=== PATIENT | male | born 1940 | race Caucasian/White ===

== ENCOUNTER → 2017-02-03 | Outpatient (CLI) | payer MEDICARE ==
--- NOTE | 2017-02-03 12:35 | CT ---
EXAMINATION TYPE: CT shoulder RT wo con DATE OF EXAM: 02/03/2017 COMPARISON: NONE HISTORY: Rt shoulder pain CT DLP: 441 mGycm Automated exposure control for dose reduction was used. Axial, reconstruction coronal and sagittal, a nd 3-D reconstruction imaging performed. FINDINGS: Incidental note is made of atherosclerotic change of the visualized carotid artery. Facet arthropathy and degenerative change of the visualized cervical spine noted. There are cystic changes involving the distal clavicle which may be postsurgical and there is evidenc e suggesting previous rotator cuff surgery. Complete loss of joint space of the glenohumeral joint sp ur formation noted. Likely is complete absence of the articular cartilage. No acute fracture. Scapula intact. IMPRESSION: COMPLETE LOSS OF JOINT SPACE OF THE GLENOHUMERAL JOINT COMPATIBLE SEVERE ARTHROPATHY. THERE IS SOME R EMODELING OF BOTH THE GLENOID AND HUMERAL HEAD. 2. SUSPECTED POSTSURGICAL CHANGE INVOLVING THE REGION OF THE ROTATOR CUFF. CORRELATE CLINICALLY. 3. SMALL AMOUNT OF FLUID ALONG THE SUBDELTOID BURSA. ALTHOUGH CAT SCAN IS NOT VERY SPECIFIC OR SENSIT BRENNAN FOR ROTATOR CUFF RE-TEAR PRESENCE OF FLUID WITHIN THE SUBDELTOID BURSA COULD BE AN INDIRECT SIGN AND SHOULD BE CORRELATED CLINICALLY. 4. ARTHROPATHY OF THE RESIDUAL AC JOINT WITH CYSTIC CHANGES INVOLVING THE DISTAL CLAVICLE.
== END | disposition home or self-care (01) ==
LOC: RADCTMAIN 11:38
PROVIDERS: ATTEND Orthopaedic Surgery Sports Medicine
DX: M12.811 Other specific arthropathies, not elsewhere classified, right shoulder (principal); M25.811 Other specified joint disorders, right shoulder

== ENCOUNTER → 2017-02-03 | Outpatient (CLI) | payer MEDICARE ==
[2017-02-03 13:49] LABS: Appearance,Urine Clear (Clear); Bilirubin,Urine Negative (Negative); Glucose,Urine (UA) 1+ (Negative); Ketones,Urine Negative (Negative); Leukocyte Esterase,Urine Negative (Negative); Nitrite,Urine Negative (Negative); Protein,Urine Negative (Negative); Specific Gravity,Urine 1.006 (1.001-1.035); UA Billing (MACRO vs. MICRO) CHEM; Urobilinogen,Urine <2.0 mg/dL (<2.0)
[2017-02-03 13:59] LABS: Basophils % (A) 0 %; CH 32.1; CHCM 34.3; Eosinophils # (A) 0.1 k/uL (0-0.7); Eosinophils % (A) 2 %; HCT 41.6 % (39.0-53.0); HDW 2.52; HGB 13.6 gm/dL (13.0-17.5); Luc # (Auto) 0.28; Luc % (Auto) 4; Lymphocytes # (A) 1.8 k/uL (1.0-4.8); Lymphocytes % (A) 26 %; MCH 30.7 pg (25.0-35.0); MCHC 32.7 g/dL (31.0-37.0); MCV 93.9 fL (80.0-100.0); Mean Platelet Volume 6.7; Monocytes # (A) 0.6 k/uL (0-1.0); Monocytes % (A) 8 %; Neutrophils # (A) 4.2 k/uL (1.3-7.7); Neutrophils % (A) 60 %; RBC 4.43 m/uL (4.30-5.90); RDW 12.2 % (11.5-15.5); WBC (Perox) 6.94
[2017-02-03 14:08] LABS: INR 1.1 (<1.2); Prothrombin Time 10.7 sec (9.0-12.0)
[2017-02-03 14:09] LABS: Partial Thromboplastin Time 26.4 sec (22.0-30.0)
[2017-02-03 14:14] LABS: ALT 41 U/L (21-72); AST 23 U/L (17-59); Alkaline Phosphatase 56 U/L (38-126); Anion Gap 11 mmol/L; Blood Urea Nitrogen 13 mg/dL (9-20); Calcium 9.9 mg/dL (8.4-10.2); Carbon Dioxide 28 mmol/L (22-30); Chloride 93 mmol/L (98-107); Glucose 160 mg/dL (74-99); Non-African American GFR(MDRD) >60 (>60 ml/min/1.73 sqM); Potassium 4.5 mmol/L (3.5-5.1); Sodium 132 mmol/L (137-145); Total Bilirubin 0.4 mg/dL (0.2-1.3); Total Protein 7.4 g/dL (6.3-8.2)
== END | disposition home or self-care (01) ==
LOC: LABPAT 12:26
PROVIDERS: ATTEND Orthopaedic Surgery Sports Medicine
DX: Z01.818 Encounter for other preprocedural examination (principal)
CPT/HCPCS: 36415; 80053; 81003; 85025; 85610; 85730; 87070; 87086

== ENCOUNTER → 2017-07-19 | Outpatient (CLI) | payer MEDICARE ==
[2017-07-19 12:13] LABS: Anion Gap 11 mmol/L; Blood Urea Nitrogen 12 mg/dL (9-20); Calcium 9.5 mg/dL (8.4-10.2); Carbon Dioxide 29 mmol/L (22-30); Chloride 95 mmol/L (98-107); Glucose 232 mg/dL (74-99); Sodium 135 mmol/L (137-145)
== END | disposition home or self-care (01) ==
LOC: LABWHC1 11:22
PROVIDERS: ATTEND Internal Medicine Cardiovascular Disease
DX: I10 Essential (primary) hypertension (principal); E78.2 Mixed hyperlipidemia
CPT/HCPCS: 36415; 80048

== ENCOUNTER → 2018-04-04 | Outpatient (CLI) | payer MEDICARE ==
--- NOTE | 2018-04-05 06:06 | BD ---
EXAMINATION TYPE: Axial Bone Density DATE OF EXAM: 04/04/2018 COMPARISON: 07/23/2005 DEXA bone scan report. CLINICAL HISTORY: Other disorders of bone density per order. Height: 65 IN Weight: 181 LBS RISK FACTORS HISTORY OF: Active: YES Lost more than 2 inches in height since high school: YES 3 " MEDICATIONS: Thyroid Medications: YES Which medication: Levothyroxine How Lon YEARS Additional Medications: MULTI VIT, LEVOTHYROXINE EXAM MEASUREMENTS: Bone mineral densitometry was performed using the [facility]. Bone mineral density as measured about the Lumbar spine is: ----- L1-L4(G/cm2): 1.176 T Score Values are as follows: ----- L2: -0.8 ----- L3: -0.4 ----- L4: 1.7 ----- L1-L4: -1.1 Bone mineral density has: Increased 15.1% since study of: 07/23/2005 Bone mineral density about the R hip (g/cm2): 0.934 Bone mineral density about the L hip (g/cm2): 0.967 T Score values are as follows: -----R Neck: -0.7 -----L Neck: -0.5 -----R Total: -0.3 -----L Total: -0.4 Bone mineral density has: Decreased -5.7% since study of: 07/23/2005 IMPRESSION: Normal (Values between +1 and -1 indicate normal bone mass). Consider repeating this study in 5 year s or sooner if there is some new clinical indication. NOTE: T-SCORE=SD OF THE YOUNG ADULT MEAN.
== END | disposition home or self-care (01) ==
LOC: RADBDWWP 16:12
PROVIDERS: ATTEND Family Medicine
DX: M85.80 Other specified disorders of bone density and structure, unspecified site (principal)
CPT/HCPCS: 77080

== ENCOUNTER → 2018-10-20 | Outpatient (CLI) | payer MEDICARE ==
[2018-10-20 16:48] LABS: HCT 39.3 % (39.0-53.0); HGB 13.1 gm/dL (13.0-17.5); MCH 30.8 pg (25.0-35.0); MCHC 33.3 g/dL (31.0-37.0); MCV 92.3 fL (80.0-100.0); Mean Platelet Volume 7.1; Platelet Count 197 k/uL (150-450); RBC 4.26 m/uL (4.30-5.90); RDW 12.6 % (11.5-15.5); WBC 7.7 k/uL (3.8-10.6)
[2018-10-20 16:55] LABS: African American GFR (CKD) >90 (>60 ml/min/1.73 sqM); Anion Gap 10 mmol/L; Blood Urea Nitrogen 16 mg/dL (9-20); Carbon Dioxide 30 mmol/L (22-30); Chloride 99 mmol/L (98-107); Non-African American GFR(CKD) 90 (>60 ml/min/1.73 sqM); Potassium 4.2 mmol/L (3.5-5.1); Sodium 139 mmol/L (137-145)
== END | disposition home or self-care (01) ==
LOC: LABPAT 16:14
PROVIDERS: ATTEND Internal Medicine Interventional Cardiology
DX: Z01.812 Encounter for preprocedural laboratory examination (principal); R07.9 Chest pain, unspecified; R94.39 Abnormal result of other cardiovascular function study
CPT/HCPCS: 80051; 82565; 84520; 85027

== ENCOUNTER 2018-10-28 05:48 | Day surgery (SDC) | payer MEDICARE ==
[2018-10-28] MEDS ORDERED: ASPIRIN 325 MG TAB PO ONE (06:00)
[2018-10-28] MEDS ORDERED: SODIUM CHLORIDE 0.9% 1,000 ML in EMPTY BAG 1 BAG IV ONE (06:00)
[2018-10-28 06:40] LABS: Glucose,Whole Blood 155 mg/dL (75-99)
[2018-10-28] MEDS: ALPRAZolam 0.25 MG TAB PO PRN ×2 (06:42→21:15)
[2018-10-28] MEDS ORDERED: LIDOCAINE 1% INJ 10MG/ML (20 ML MDV) ONE (07:18)
[2018-10-28] MEDS ORDERED: VERAPAMIL 2.5 MG/ML 2 ML AMP ONE (07:18)
[2018-10-28] MEDS ORDERED: HEPARIN SODIUM 1,000 UN/ML (10ML VL) ONE (07:18)
[2018-10-28] MEDS ORDERED: fentaNYL (PF) 50 MCG/ML 2 ML AMP ONE (07:28)
[2018-10-28] MEDS ORDERED: fentaNYL (PF) 50 MCG/ML 2 ML AMP IVP ONE (07:45)
[2018-10-28] MEDS ORDERED: LIDOCAINE 1% INJ 10MG/ML (20 ML MDV) SQ ONE (07:48)
[2018-10-28] MEDS ORDERED: MIDAZOLAM (PF) 2 MG/2 ML VIAL IVP ONE (07:49)
[2018-10-28] MEDS ORDERED: VERAPAMIL SYRINGE (5 MG/10 ML) INTRAARTER ONE (07:52)
[2018-10-28] MEDS ORDERED: CLOPIDOGREL 75 MG TAB ONE (08:05)
[2018-10-28] MEDS ORDERED: BIVALIRUDIN BOLUS 250 MG/50 ML IV ONE (08:08)
[2018-10-28] MEDS ORDERED: BIVALIRUDIN 250 MG in SODIUM CHLORIDE 0.9% 50 ML IV ONE (08:09)
[2018-10-28] MEDS ORDERED: CLOPIDOGREL 75 MG TAB PO ONE (08:10)
[2018-10-28] MEDS ORDERED: IOPAMIDOL-370 125ML BTL INJ ONE (08:22)
[2018-10-28] MEDS ORDERED: IOPAMIDOL-370 100ML BTL INJ ONE (09:03)
[2018-10-28] MEDS ORDERED: RX INFO: IV CONTRAST WAS GIVEN 1 EACH MISC MISCELLANE PRN (09:09)
[2018-10-28] MEDS ORDERED: ZOLPIDEM 5 MG TAB PO PRN (09:09)
[2018-10-28] MEDS ORDERED: MAG HYDROX/AL HYDROX/SIMETH 30 ML CUP PO PRN (09:09)
[2018-10-28] MEDS ORDERED: NITROGLYCERIN SL TABS 0.4 MG TAB SUBLINGUAL PRN (09:09)
[2018-10-28] MEDS ORDERED: ATROPINE SULFATE 0.1 MG/ML 10ML SYRINGE IV PRN (09:09)
[2018-10-28] MEDS ORDERED: SODIUM CHLORIDE 0.9% 1,000 ML IV SCH (09:15)
--- NOTE | 2018-10-28 09:40 | CC ---
CARDIAC CATHETERIZATION REPORT Mr. Bhatia is a 78-year-old male with a known history of hypertension, hyperlipidemia, diabetes mellitus, who has been complaining of exertional chest discomfort and had abnormal stress echocardiogram with inferolateral wall ischemia. In view of that, recommendation made regarding cardiac catheterization. The procedures, risks and complications were discussed with the patient who is in full understanding and agreement. PROCEDURE: Patient was brought to the labor relations analyst in a fasting semi-sedated state after receiving fentanyl and Benadryl and achieving moderate conscious sedated state. Using Xylocaine anesthesia and Seldinger technique, a 6-Mexican sheath was introduced in the right radial artery. Selective right and left coronary angiography performed using 5-Mexican 3.5 bend right and left Rox catheter, multiple views of the coronary artery including hemiaxial views were obtained. Following that 5-Mexican tight pigtail catheter was introduced in the left ventricle and pressures were calculated. Following that, catheters were removed., images were reviewed. FINDINGS: FLUOROSCOPY: There is severe calcification involving the coronary arteries and more predominantly in the left circumflex. LEFT MAIN: This is a short size vessel, bifurcating into left circumflex, left anterior descending artery. Left main coronary artery has no evidence of high-grade stenosis. LEFT ANTERIOR DESCENDING ARTERY: This is a large-sized vessel, reaching toward the apex with a wraparound apex segment, giving rise to the diagonal branch. The left anterior descending artery has mild plaque in the proximal segment of 20% with no evidence of high-grade stenosis. LEFT CIRCUMFLEX: This is a severely calcified vessel, dominant, giving rise to a large proximal obtuse marginal branch. After the takeoff of the obtuse marginal branch, there is an acute bend. Subsequently, there is the AV groove left circumflex had a 99% stenosis and there is a second obtuse marginal branch has a 99% stenosis with slow antegrade flow. RIGHT CORONARY ARTERY: This is a nondominant vessel, small in caliber at the takeoff of the acute marginal branch. There is an eccentric 60% plaque. The rest of the vessel has no high-grade stenosis. LEFT VENTRICULOGRAM: Ventriculogram is not performed. HEMODYNAMICS: There was no gradient across the aortic valve. The left ventricular end-diastolic pressure was 14 to 16 mmHg. CONCLUSION: 1. 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 2. Moderate disease in mid right coronary artery and mild disease in the LAD. RECOMMENDATION: In view of finding anatomy, I discussed with the patient the option of proceeding with attempted angioplasty and stenting. The procedures, risks and complications were discussed with the patient who is in full understanding and agreement. MMODL / IJN: [id number] /
--- NOTE | 2018-10-28 09:52 | PTCA ---
PERCUTANEOUSTRANS CORORONARY ANGIOGRAPHY ATTEMPTED ANGIOPLASTY AND STENTING Mr. Bhatia is a 78-year-old male with known history of hypertension, hyperlipidemia and diabetes mellitus, who has been complaining of exertional chest discomfort, had an abnormal stress echocardiogram in the inferolateral wall, underwent cardiac catheterization, was found to have subtotally occluded mid left circumflex. In view of that, recommendation was made regarding angioplasty and stenting. The procedure as well as the risks and the complications were discussed with the patient who is in full understanding and agreement. PROCEDURE: A 6-Serbian FL 3.5 guiding catheter into system. After cannulating the left main, a 0.014 Whisper J-wire was advanced and positioned in distal left circumflex. Subsequently attempt to advance a second wire into the second obtuse marginal branch was unsuccessful. Subsequently, a FineCross 45 degree catheter was introduced and a 0.014 whisper J-wire in spite of the back up of the FineCross, there was inability to cross the second obtuse marginal branch. That wire was exchanged to a 0.014 balanced medium weight J-wire, that was unsuccessful as well. At that point, the wires were removed and a 0.014 Whisper J-wire was advanced positioned next to the first wire in the distal left circumflex. Subsequently attempt to advance a 2.5 x 12 mm Trek balloon was unsuccessful. That balloon was removed and one of the wires were removed and a GuideLiner was advanced and with the help of the GuideLiner a 1.5 x 8 mm Trek balloon was advanced and 2 inflations at maximum of 16 atmospheres were done. Following that the balloon was removed and attempt to advance 2.5 x 12 mm Trek was unsuccessful in spite of the GuideLiner because of the severe calcification proximal to the lesion and the acute tortuosity and angulation. The GuideLiner was removed and the 0.014 Whisper J-wire was reintroduced in a jacqueline fashion and attempt to advance the 2.5 x 12 mm Trek balloon was unsuccessful as well. At that point, the guiding catheter, the balloon and the guidewire were removed. The sheath was removed. Hemostasis was obtained with deployment of a TR band. There was no immediate complication. The patient was returned to his room in stable condition. Of note, the patient had mild chest discomfort that resolved at the end procedure. He received Angiomax per protocol as well as oral loading dose of clopidogrel. RESULTS: Unsuccessful recanalization of subtotally occluded distal left circumflex and second obtuse marginal branch because of severe tortuosity, calcification in the lesion and proximal to the lesion. RECOMMENDATION: Those findings and recommendations were discussed with the patient. At this time, I will continue medical therapy and I will obtain the opinion to see if other attempts can be considered at a tertiary care facility. Depending on his progress, further recommendation will be made. Duration of procedure is 67 minutes. MMODL / IJN: [id number] /
[2018-10-28 11:59] LABS: Glucose,Whole Blood 187 mg/dL (75-99)
[2018-10-28 17:18] LABS: Glucose,Whole Blood 114 mg/dL (75-99)
[2018-10-28] MEDS: cloNIDine HCL 0.1 MG TAB PO SCH (19:46)
[2018-10-28] MEDS: ATENOLOL 25 MG TAB PO SCH (19:46)
[2018-10-28] MEDS ORDERED: LISINOPRIL 5 MG TAB PO SCH (21:00)
[2018-10-28] MEDS ORDERED: ATORVASTATIN 40 MG TAB PO SCH (21:00)
[2018-10-28 21:08] LABS: Glucose,Whole Blood 157 mg/dL (75-99)
[2018-10-28] MEDS ORDERED: LISINOPRIL 20 MG TAB PO STA (22:20)
[2018-10-29 04:46] VITALS: RESP 18
[2018-10-29 05:59] LABS: Glucose,Whole Blood 139 mg/dL (75-99)
[2018-10-29] MEDS ORDERED: LEVOTHYROXINE 100 MCG TAB PO SCH (06:30)
[2018-10-29 07:21] LABS: African American GFR (CKD) >90 (>60 ml/min/1.73 sqM); Anion Gap 9 mmol/L; Blood Urea Nitrogen 13 mg/dL (9-20); Calcium 9.1 mg/dL (8.4-10.2); Carbon Dioxide 28 mmol/L (22-30); Chloride 103 mmol/L (98-107); Glucose 141 mg/dL (74-99); Potassium 3.9 mmol/L (3.5-5.1); Sodium 140 mmol/L (137-145)
[2018-10-29] MEDS: cloNIDine HCL 0.1 MG TAB PO SCH (08:20)
[2018-10-29] MEDS: ATENOLOL 25 MG TAB PO SCH (08:20)
[2018-10-29] MEDS ORDERED: HYDROCHLOROTHIAZIDE 25 MG TAB PO SCH (09:00)
[2018-10-29] MEDS ORDERED: amLODIPine 10 MG TAB PO SCH (09:00)
[2018-10-29] MEDS ORDERED: LISINOPRIL 20 MG TAB PO SCH (09:00)
[2018-10-29] MEDS ORDERED: amLODIPine 5 MG TAB PO SCH (09:00)
[2018-10-29] MEDS ORDERED: ISOSORBIDE MONONITRATE ER 60 MG TAB.ER.24H PO SCH (09:00)
[2018-10-29] MEDS ORDERED: ASPIRIN 81 MG PO SCH (09:00)
[2018-10-29] MEDS ORDERED: LOSARTAN 50 MG TAB PO SCH (09:00)
[2018-10-29] MEDS ORDERED: CLOPIDOGREL 75 MG TAB PO SCH (09:00)
[2018-10-29 09:51] VITALS: TEMP 97.4
[2018-10-29 09:52] VITALS: BP 151/70; PULSE 72
--- NOTE | 2018-10-29 10:23 | PN ---
PROGRESS NOTE Mr. Bhatia is a 78-year-old male with known history of hypertension, hyperlipidemia, diabetes mellitus, who presented with symptoms of chest discomfort and had an abnormal stress echocardiogram, underwent cardiac catheterization, was found to have heavily calcified left circumflex with subtotal occluded mid circumflex and 2nd obtuse marginal branch. Attempts to proceed with angioplasty and stenting were unsuccessful because of the severe angulation and calcification. The patient is doing well this morning. He is concerned about his blood pressure. He is denying any chest pain. No dizziness. No palpitation. No nausea. He denies any cough. He continues to be on aspirin once a day, Plavix 75 mg daily, clonidine 0.1 mg twice a day, Norvasc 5 mg daily, atenolol 25 mg twice a day, Lipitor 40 mg daily, isosorbide mononitrate 60 mg daily, losartan 100 mg daily. PHYSICAL EXAMINATION: Blood pressure running in the 160s to 200 with a heart rate in the 70s. HEAD: Normocephalic. Eyes sclerae anicteric. NECK: Good upstroke. No bruit. LUNGS: Clear to auscultation. HEART: Regular rate and rhythm S1, S2. No S3 with systolic murmur. No diastolic murmur. ABDOMEN: Soft, nontender. Positive bowel sounds. No megaly. EXTREMITIES: No edema. Right radial pulse intact. EKG revealed no acute changes. LAB DATA: Lab data revealed BUN and creatinine 13 and 0.7, potassium 3.9. IMPRESSION: 1. 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 2. Hypertension. 3. Hyperlipidemia. 4. Diabetes mellitus. RECOMMENDATION: I will add hydrochlorothiazide to his regimen, increase the dose of his amlodipine to improve his blood pressure control. He will increase his level of activity. I contacted the high risk angioplasty team at [facility] and his images were sent there to be reviewed to see if he is a candidate to proceed with further attempt to angioplasty and stenting. If he is doing well this afternoon, I would expect he should be able to be discharged home and followed as an outpatient. MMODL / IJN: [id number] /
[2018-10-29 11:50] LABS: Glucose,Whole Blood 201 mg/dL (75-99)
[2018-10-29 12:44] VITALS: BMI 26.8
== END 2018-10-29 14:15 | disposition home or self-care (01) ==
LOC: CATHCVL 05:48 → 3SCARD 08:53 → CATHCVL 10-29 14:15
PROVIDERS: ATTEND Internal Medicine Interventional Cardiology
DX: I25.10 Atherosclerotic heart disease of native coronary artery without angina pectoris (principal); I25.84 Coronary atherosclerosis due to calcified coronary lesion; I77.1 Stricture of artery; Z53.8 Procedure and treatment not carried out for other reasons; I10 Essential (primary) hypertension; Z87.891 Personal history of nicotine dependence; E78.2 Mixed hyperlipidemia; E11.9 Type 2 diabetes mellitus without complications; Z79.84 Long term (current) use of oral hypoglycemic drugs; Z79.82 Long term (current) use of aspirin; Z79.890 Hormone replacement therapy; Z79.899 Other long term (current) drug therapy
CPT/HCPCS: 93458; 92920; 85347; 80048; C1769 ×2; C1887 ×3; C1725 ×2; J2001; J3010; J0583; Q9967 ×2; J2250

== ENCOUNTER 2018-12-02 10:23 | Inpatient (IN) | payer MEDICARE ==
[2018-12-02] MEDS ORDERED: DILTIAZEM DRIP BOLUS FROM BAG 1 MG SOLN IV ONE (10:49)
[2018-12-02] MEDS ORDERED: ASPIRIN 81 MG PO STA (10:49)
[2018-12-02] MEDS ORDERED: SODIUM CHLORIDE 0.9% 1,000 ML IV STA (10:49)
[2018-12-02] MEDS ORDERED: HEPARIN SODIUM,PORCINE 5,000 UNIT/ML 1 ML VIAL IV PRN (10:50)
[2018-12-02] MEDS ORDERED: HEPARIN SODIUM,PORCINE 5,000 UNIT/ML 1 ML VIAL IV ONE (10:50)
--- NOTE | 2018-12-02 11:07 | ED ---
General Adult HPI - General Chief complaint: Arrhythmia/Palpitations Stated complaint: chest pain/high pulse Time Seen by Provider: 12/02/18 10:36 Source: patient Mode of arrival: wheelchair Limitations: no limitations - History of Present Illness Initial comments: Dictation was produced using [employer] dictation software. please excuse any grammatical, word or spelling errors. Chief Complaint: 78-year-old male past medical history of coronary artery disease, hypertension presents with tachycardia. History of Present Illness: This 78-year-old male he was seen in his primary care physician's office. Patient states she's been having rapid heart rate since this morning. Patient states he was in his usual state of health yesterday. He was evaluated at his PCPs office and found to have atrial flutter with a heart rate in the 150s. He was sent over immediately to the emergency department. Patient states he has been having palpitations upon waking today. He does complain of some mild chest pressure. She denies any lower extremity symptoms. No history of deep venous thrombosis. Denies any cough or infectious symptoms. Patient has history of coronary artery disease. He had a cardiac cath performed by Dr. Rojas recently. Patient however was not unable to undergo successful stenting. He is referred to [facility] for outpatient cardiac cath The ROS documented in this emergency department record has been reviewed and confirmed by me. Those systems with pertinent positive or negative responses have been documented in the HPI. All other systems are other negative and/or noncontributory. PHYSICAL EXAM: General Impression: Alert and oriented x3, not in acute distress HEENT: Normocephalic atraumatic, extra-ocular movements intact, pupils equal and reactive to light bilaterally, mucous membranes moist. Cardiovascular: Tachycardic Chest: Lungs clear to auscultation bilaterally, no rhonchi, no wheeze, no rales Abdomen: Bowel sounds present, abdomen soft, non-tender, non-distended, no organomegaly Musculoskeletal: Pulses present and equal in all extremities, no peripheral edema Motor: no focal deficits noted Neurological: CN II-XII grossly intact, no focal motor or sensory deficits noted Skin: Intact with no visualized rashes Psych: Normal affect and mood ED course: 78-year-old male presents with tachycardia dysrhythmia. All signs upon arrival shows heart rate 159, worse vital signs within acceptable limits. She started on Cardizem infusion after Cardizem bolus. Patient's medications were reviewed. He is on Plavix. Started on heparin Repeat EKG performed after initiation of Cardizem Ventricular rate 98, atrial flutter, QRS 84, QTc 403. Laboratory evaluation obtained. CBC unremarkable, coag panel negative. Metabolic panel is nonacute. Cardiac enzymes negative. Chest x-ray obtained showing no acute pulmonary processes. Patient evaluated bedside with adequate rate control. He is currently on Cardizem drip. Heparin started. Patient be admitted to Dr. Spring's service. Cardiology is consulted. EKG interpretation: Ventricular rate 157, tachycardia dysrhythmia, IA interval 1:30, care is 110, QTc 391. - Related Data Home Medications Medication Instructions Recorded Confirmed Acetaminophen [Tylenol] 325 - 650 mg PO Q6HR PRN 02/15/17 12/02/18 Aspirin [Adult Low Dose Aspirin EC] 81 mg PO DAILY 02/15/17 12/02/18 Atenolol 25 mg PO BID 02/15/17 12/02/18 Calcium Carbonate/Vitamin D3 1 tab PO DAILY 02/15/17 12/02/18 [Calcium 600-Vit D3 500 Softgel] Levothyroxine Sodium [Levoxyl] 100 mcg PO DAILY 02/15/17 12/02/18 [place]-3 Fatty Acids/Fish Oil [Fish 1 cap PO DAILY 02/15/17 12/02/18 Oil 1,000 mg Softgel] cloNIDine HCL [Catapres] 0.1 mg PO BID 02/15/17 12/02/18 metFORMIN HCL [Glucophage] 1,000 mg PO BID 02/15/17 12/02/18 Atorvastatin [Lipitor] 40 mg PO HS 12/02/18 12/02/18 Previous Rx's Medication Instructions Recorded Clopidogrel [Plavix] 75 mg PO DAILY #90 tab 10/29/18 Hydrochlorothiazide [Hydrodiuril] 25 mg PO DAILY #90 tab 10/29/18 Isosorbide Mononitrate ER [Imdur] 60 mg PO DAILY #30 tab.er.24h 10/29/18 Losartan [Cozaar] 100 mg PO DAILY #90 tab 10/29/18 amLODIPine [Norvasc] 10 mg PO DAILY #0 10/29/18 Allergies Allergy/AdvReac Type Severity Reaction Status Date / Time ibuprofen AdvReac PASSED OUT Verified 12/02/18 11:32 Review of Systems ROS Statement: Those systems with pertinent positive or pertinent negative responses have been documented in the HPI. ROS Other: All systems not noted in ROS Statement are negative. Past Medical History Past Medical History: Chest Pain / Angina, Diabetes Mellitus, Hyperlipidemia, Hypertension, Thyroid Disorder Additional Past Medical History / Comment(s): Arthritis, trigger finger R hand. History of Any Multi-Drug Resistant Organisms: None Reported Additional Past Surgical History / Comment(s): Shoulder surgery, L knee partial replacement, cataract surgery bilat. Past Anesthesia/Blood Transfusion Reactions: No Reported Reaction Past Psychological History: No Psychological Hx Reported Smoking Status: Former smoker - Past Family History Mother Family Medical History: No Reported History General Exam Limitations: no limitations Course Vital Signs 12/02/18 12/02/18 12/02/18 10:25 11:13 11:20 Temperature 97.4 F L Pulse Rate 159 H 158 H 156 H Respiratory 20 15 17 Rate Blood Pressure 149/102 99/74 O2 Sat by Pulse 96 Oximetry 12/02/18 12/02/18 12/02/18 11:31 11:40 11:50 Temperature Pulse Rate 90 79 90 Respiratory 24 16 17 Rate Blood Pressure 117/83 118/70 118/70 O2 Sat by Pulse Oximetry 12/02/18 12/02/18 12:00 12:10 Temperature Pulse Rate 74 78 Respiratory 15 13 Rate Blood Pressure 121/78 O2 Sat by Pulse Oximetry Medical Decision Making - Lab Data Result diagrams: 12/02/18 11:03 12/02/18 11:03 Lab Results 12/02/18 12/02/18 12/02/18 Range/Units 11:03 11:03 11:03 WBC 10.4 (3.8-10.6) k/uL RBC 4.40 (4.30-5.90) m/uL Hgb 13.8 (13.0-17.5) gm/dL Hct 39.9 (39.0-53.0) % MCV 90.7 (80.0-100.0) fL MCH 31.3 (25.0-35.0) pg MCHC 34.5 (31.0-37.0) g/dL RDW 14.3 (11.5-15.5) % Plt Count 246 (150-450) k/uL Neutrophils % 82 % Lymphocytes % 10 % Monocytes % 5 % Eosinophils % 1 % Basophils % 0 % Neutrophils # 8.5 H (1.3-7.7) k/uL Lymphocytes # 1.1 (1.0-4.8) k/uL Monocytes # 0.5 (0-1.0) k/uL Eosinophils # 0.1 (0-0.7) k/uL Basophils # 0.0 (0-0.2) k/uL PT 10.5 (9.0-12.0) sec INR 1.0 (<1.2) APTT 27.7 (22.0-30.0) sec Sodium 135 L (137-145) mmol/L Potassium 4.3 (3.5-5.1) mmol/L Chloride 94 L (98-107) mmol/L Carbon Dioxide 27 (22-30) mmol/L Anion Gap 14 mmol/L BUN 17 (9-20) mg/dL Creatinine 0.74 (0.66-1.25) mg/dL Est GFR (CKD-EPI)AfAm >90 (>60 ml/min/1.73 sqM) Est GFR (CKD-EPI)NonAf 88 (>60 ml/min/1.73 sqM) Glucose 166 H (74-99) mg/dL Calcium 9.8 (8.4-10.2) mg/dL Magnesium 1.3 L (1.6-2.3) mg/dL Total Bilirubin 0.6 (0.2-1.3) mg/dL AST 30 (17-59) U/L ALT 41 (21-72) U/L Alkaline Phosphatase 60 (38-126) U/L Troponin I (0.000-0.034) ng/mL Total Protein 7.9 (6.3-8.2) g/dL Albumin 4.7 (3.5-5.0) g/dL 12/02/18 Range/Units 11:03 WBC (3.8-10.6) k/uL RBC (4.30-5.90) m/uL Hgb (13.0-17.5) gm/dL Hct (39.0-53.0) % MCV (80.0-100.0) fL MCH (25.0-35.0) pg MCHC (31.0-37.0) g/dL RDW (11.5-15.5) % Plt Count (150-450) k/uL Neutrophils % % Lymphocytes % % Monocytes % % Eosinophils % % Basophils % % Neutrophils # (1.3-7.7) k/uL Lymphocytes # (1.0-4.8) k/uL Monocytes # (0-1.0) k/uL Eosinophils # (0-0.7) k/uL Basophils # (0-0.2) k/uL PT (9.0-12.0) sec INR (<1.2) APTT (22.0-30.0) sec Sodium (137-145) mmol/L Potassium (3.5-5.1) mmol/L Chloride (98-107) mmol/L Carbon Dioxide (22-30) mmol/L Anion Gap mmol/L BUN (9-20) mg/dL Creatinine (0.66-1.25) mg/dL Est GFR (CKD-EPI)AfAm (>60 ml/min/1.73 sqM) Est GFR (CKD-EPI)NonAf (>60 ml/min/1.73 sqM) Glucose (74-99) mg/dL Calcium (8.4-10.2) mg/dL Magnesium (1.6-2.3) mg/dL Total Bilirubin (0.2-1.3) mg/dL AST (17-59) U/L ALT (21-72) U/L Alkaline Phosphatase (38-126) U/L Troponin I <0.012 (0.000-0.034) ng/mL Total Protein (6.3-8.2) g/dL Albumin (3.5-5.0) g/dL Disposition Clinical Impression: Atrial flutter Disposition: ADMITTED IP TO THIS HOSP Condition: Fair Referrals: Mary Leon MD [Primary Care Provider] - 1-2 days Decision Time: 12:32
[2018-12-02] MEDS ORDERED: DILTIAZEM 125 MG in SODIUM CHLORIDE 0.9% 100 ML IV SCH (11:15)
[2018-12-02] MEDS: HEPARIN SOD,PORK IN 0.45% NACL 25,000 UNIT in 0.45% NACL 1 250ML.BAG IV SCH (11:16)
[2018-12-02 11:30] LABS: Basophils % (A) 0 %; Eosinophils # (A) 0.1 k/uL (0-0.7); Eosinophils % (A) 1 %; HCT 39.9 % (39.0-53.0); HGB 13.8 gm/dL (13.0-17.5); Lymphocytes # (A) 1.1 k/uL (1.0-4.8); Lymphocytes % (A) 10 %; MCH 31.3 pg (25.0-35.0); MCHC 34.5 g/dL (31.0-37.0); MCV 90.7 fL (80.0-100.0); Mean Platelet Volume 7.1; Monocytes # (A) 0.5 k/uL (0-1.0); Monocytes % (A) 5 %; Neutrophils # (A) 8.5 k/uL (1.3-7.7); Neutrophils % (A) 82 %; Platelet Count 246 k/uL (150-450); RDW 14.3 % (11.5-15.5); WBC 10.4 k/uL (3.8-10.6)
[2018-12-02 11:38] LABS: ALT 41 U/L (21-72); AST 30 U/L (17-59); African American GFR (CKD) >90 (>60 ml/min/1.73 sqM); Albumin 4.7 g/dL (3.5-5.0); Alkaline Phosphatase 60 U/L (38-126); Anion Gap 14 mmol/L; Blood Urea Nitrogen 17 mg/dL (9-20); Calcium 9.8 mg/dL (8.4-10.2); Carbon Dioxide 27 mmol/L (22-30); Chloride 94 mmol/L (98-107); Glucose 166 mg/dL (74-99); Magnesium 1.3 mg/dL (1.6-2.3); Potassium 4.3 mmol/L (3.5-5.1); Sodium 135 mmol/L (137-145); Total Bilirubin 0.6 mg/dL (0.2-1.3); Total Protein 7.9 g/dL (6.3-8.2)
[2018-12-02 11:42] LABS: Partial Thromboplastin Time 27.7 sec (22.0-30.0); Prothrombin Time 10.5 sec (9.0-12.0)
--- NOTE | 2018-12-02 11:53 | XR ---
EXAMINATION TYPE: XR chest 1V portable DATE OF EXAM: 12/02/2018 COMPARISON: Chest x-ray May 13, 2012. HISTORY: Dysrhythmia. TECHNIQUE: Single AP portable frontal upright view of the chest is obtained. FINDINGS: There are chronic parenchymal changes without suspicious focal air space opacity, pleural effusion, or pneumothorax seen. The cardiac silhouette size is enlarged with atherosclerotic aorta. Surgical prosthesis right humerus now present. Advanced degenerative change left glenohumeral joint a gain seen. IMPRESSION: Chronic parenchymal changes and cardiomegaly without acute pulmonary process.
[2018-12-02] MEDS ORDERED: oxyCODONE-APAP 5-325MG 1 EACH TAB PO PRN (12:29)
[2018-12-02] MEDS ORDERED: ONDANSETRON 4 MG/2 ML VIAL IVP PRN (12:29)
[2018-12-02] MEDS ORDERED: ACETAMINOPHEN TAB 325 MG TAB PO PRN (12:29)
[2018-12-02] MEDS ORDERED: NALOXONE 0.4 MG/ML 1 ML VIAL IV PRN (12:29)
--- NOTE | 2018-12-02 13:06 | P.HPIM ---
History of Present Illness H&P Date: 12/02/18 This is a 78-year-old male patient of Dr. Murphy. Patient presented with complaints of irregular rhythm. Patient reports that he woke up this morning with some mild chest discomfort and a feeling of heart palpitations. Patient had appointment at PCP and was found to be in atrial fibrillation with a heart rate of 150s. PCP sent patient ER for further evaluation. On 10/29/2018 patient underwent cardiac cath with Dr. Rojas. During cardiac cath is found that patient had heavily calcified left circumflex was subtotally occluded mid circumflex and second obtuse marginal branch. At that time angioplasty and stenting were unsuccessful because of severe calcification. Patient was referred to [facility]. Patient states he did follow up with [facility] and planned angioplasty in early December. Additional medical history includes chest pain, diabetes mellitus, hyperlipidemia, essential hypertension, hypothyroidism and ex-smoker. Chest x-ray completed showing chronic parenchymal changes and cardiomegaly without acute pulmonary process. EKG completed showing atrial flutter with variable AV block. Patient was started on Cardizem and heparin drips. Patient's heart rate at this time remains irregular but controlled. Magnesium low at 1.3 replace per protocol. AM labs have been ordered cardiology consult placed. At this time patient denies chest pain or shortness of breath. Patient denies nausea vomiting or diarrhea. Patient denies any urinary burning or frequency Review of Systems Please refer to HPI otherwise unremarkable Past Medical History Past Medical History: Chest Pain / Angina, Diabetes Mellitus, Hyperlipidemia, Hypertension, Thyroid Disorder Additional Past Medical History / Comment(s): Arthritis, trigger finger R hand. History of Any Multi-Drug Resistant Organisms: None Reported Additional Past Surgical History / Comment(s): Shoulder surgery, L knee partial replacement, cataract surgery bilat. Past Anesthesia/Blood Transfusion Reactions: No Reported Reaction Past Psychological History: No Psychological Hx Reported Smoking Status: Former smoker - Past Family History Mother Family Medical History: No Reported History Medications and Allergies Home Medications Medication Instructions Recorded Confirmed Type Acetaminophen [Tylenol] 325 - 650 mg PO Q6HR PRN 02/15/17 12/02/18 History Aspirin [Adult Low Dose Aspirin EC] 81 mg PO DAILY 02/15/17 12/02/18 History Atenolol 25 mg PO BID 02/15/17 12/02/18 History Calcium Carbonate/Vitamin D3 1 tab PO DAILY 02/15/17 12/02/18 History [Calcium 600-Vit D3 500 Softgel] Levothyroxine Sodium [Levoxyl] 100 mcg PO DAILY 02/15/17 12/02/18 History Baker-3 Fatty Acids/Fish Oil [Fish 1 cap PO DAILY 02/15/17 12/02/18 History Oil 1,000 mg Softgel] cloNIDine HCL [Catapres] 0.1 mg PO BID 02/15/17 12/02/18 History metFORMIN HCL [Glucophage] 1,000 mg PO BID 02/15/17 12/02/18 History Clopidogrel [Plavix] 75 mg PO DAILY #90 tab 10/29/18 12/02/18 Rx Hydrochlorothiazide [Hydrodiuril] 25 mg PO DAILY #90 tab 10/29/18 12/02/18 Rx Isosorbide Mononitrate ER [Imdur] 60 mg PO DAILY #30 tab.er.24h 10/29/18 12/02/18 Rx Losartan [Cozaar] 100 mg PO DAILY #90 tab 10/29/18 12/02/18 Rx amLODIPine [Norvasc] 10 mg PO DAILY #0 10/29/18 12/02/18 Rx Atorvastatin [Lipitor] 40 mg PO HS 12/02/18 12/02/18 History Allergies Allergy/AdvReac Type Severity Reaction Status Date / Time ibuprofen AdvReac PASSED OUT Verified 12/02/18 11:32 Physical Exam Vitals: Vital Signs Temp Pulse Resp BP Pulse Ox 12/02/18 12:40 82 14 101/68 12/02/18 12:30 92 15 121/78 12/02/18 12:20 79 14 121/78 12/02/18 12:10 78 13 121/78 12/02/18 12:00 74 15 12/02/18 11:50 90 17 118/70 12/02/18 11:40 79 16 118/70 12/02/18 11:31 90 24 117/83 12/02/18 11:20 156 H 17 99/74 12/02/18 11:13 158 H 15 12/02/18 10:25 97.4 F L 159 H 20 149/102 96 Intake and Output 12/01/18 12/02/18 12/02/18 22:59 06:59 14:59 Other: Weight 78.925 kg Head normocephalic Neck supple Lungs clear to auscultation bilaterally no wheezing or crackles Heart irregular rate Abdomen is soft nontender nondistended positive bowel sounds no hepatosplenomegaly Extremities no edema Neuro alert and orientated to 3 Results CBC & Chem 7: 12/02/18 11:03 12/02/18 11:03 Labs: Abnormal Lab Results - Last 24 Hours (Table) 12/02/18 12/02/18 Range/Units 11:03 11:03 Neutrophils # 8.5 H (1.3-7.7) k/uL Sodium 135 L (137-145) mmol/L Chloride 94 L (98-107) mmol/L Glucose 166 H (74-99) mg/dL Magnesium 1.3 L (1.6-2.3) mg/dL Assessment and Plan Assessment: 1. New onset atrial flutter. Patient started on Cardizem and heparin drip. Cardiology services have been consulted 2. Known coronary artery disease. Patient underwent heart cath on October [address] glass on and was found to have heavily calcified left circumflex was subtotally occluded mid circumflex and second obtuse marginal branch. At that time angioplasty was unsuccessful due to severe desiccation patient was referred to [facility]. Patient states he did follow with [facility] and has scheduled angioplasty in December 22. Hypomagnesemia. Magnesium 1.3 replaced per protocol recheck in a.m. 4. Hypothyroidism. TSH level ordered. Synthroid resumed 5. Diabetes mellitus type 2. Metformin on hold sliding scale insulin ordered 6. Hyperlipidemia. Statin resumed 7. Essential hypertension DVT prophylaxis heparin drip. GI prophylaxis Pepcid Time with Patient: Greater than 30 (Greater than 60% of the total time spent in counseling and coordination of care. I performed an examination of the patient and discussed their management with the Nurse Practitioner. I have reviewed the Nurse Practitioner's notes and agree with the documented findings and plan of care)
[2018-12-02] MEDS: MAGNESIUM SULFATE-D5W PMX 1 GM in DEXTROSE/WATER 1 100ML.BAG IVPB SCH ×2 (15:38→16:50)
[2018-12-02] MEDS: SODIUM CHLORIDE 0.9% 1,000 ML IV SCH (15:39)
[2018-12-02 17:14] LABS: Glucose,Whole Blood 157 mg/dL (75-99)
[2018-12-02] MEDS: INSULIN ASPART (NovoLOG) 100 UNIT/ML VIAL SQ SCH ×2 (17:29→21:02)
[2018-12-02] MEDS: ATORVASTATIN 40 MG TAB PO SCH (19:37)
[2018-12-02] MEDS: ATENOLOL 25 MG TAB PO SCH (19:37)
[2018-12-02] MEDS: cloNIDine HCL 0.1 MG TAB PO SCH (19:37)
[2018-12-02 20:37] LABS: Glucose,Whole Blood 149 mg/dL (75-99)
[2018-12-02] MEDS ORDERED: FUROSEMIDE 10 MG/ML 2 ML VIAL IV ONE (22:40)
[2018-12-02] MEDS: MELATONIN 5 MG TABLET PO PRN (22:55)
[2018-12-03 03:08] LABS: Basophils % (A) 0 %; Eosinophils # (A) 0.1 k/uL (0-0.7); Eosinophils % (A) 2 %; HCT 36.6 % (39.0-53.0); HGB 12.3 gm/dL (13.0-17.5); Lymphocytes # (A) 1.6 k/uL (1.0-4.8); Lymphocytes % (A) 22 %; MCH 31.4 pg (25.0-35.0); MCHC 33.6 g/dL (31.0-37.0); MCV 93.4 fL (80.0-100.0); Monocytes # (A) 0.6 k/uL (0-1.0); Monocytes % (A) 9 %; Neutrophils # (A) 4.7 k/uL (1.3-7.7); Neutrophils % (A) 64 %; Platelet Count 196 k/uL (150-450); RBC 3.92 m/uL (4.30-5.90); WBC 7.3 k/uL (3.8-10.6)
[2018-12-03 03:16] LABS: ALT 37 U/L (21-72); AST 26 U/L (17-59); African American GFR (CKD) >90 (>60 ml/min/1.73 sqM); Albumin 4.1 g/dL (3.5-5.0); Alkaline Phosphatase 56 U/L (38-126); Anion Gap 12 mmol/L; Blood Urea Nitrogen 22 mg/dL (9-20); Calcium 9.1 mg/dL (8.4-10.2); Carbon Dioxide 25 mmol/L (22-30); Chloride 98 mmol/L (98-107); Glucose 146 mg/dL (74-99); Magnesium 1.6 mg/dL (1.6-2.3); Potassium 4.2 mmol/L (3.5-5.1); Sodium 135 mmol/L (137-145); Total Bilirubin 0.3 mg/dL (0.2-1.3); Total Protein 6.8 g/dL (6.3-8.2)
[2018-12-03 06:27] LABS: Glucose,Whole Blood 158 mg/dL (75-99)
[2018-12-03] MEDS: PANTOPRAZOLE 40 MG TABLET PO SCH (06:31)
[2018-12-03] MEDS: INSULIN ASPART (NovoLOG) 100 UNIT/ML VIAL SQ SCH ×4 (06:34→20:37)
[2018-12-03] MEDS: LEVOTHYROXINE 100 MCG TAB PO SCH (06:34)
[2018-12-03] MEDS: ATENOLOL 25 MG TAB PO SCH ×2 (08:26→20:37)
[2018-12-03] MEDS: HYDROCHLOROTHIAZIDE 25 MG TAB PO SCH (08:26)
[2018-12-03] MEDS: cloNIDine HCL 0.1 MG TAB PO SCH ×3 (08:26→20:37)
[2018-12-03] MEDS: LOSARTAN 50 MG TAB PO SCH (08:26)
[2018-12-03] MEDS: CALCIUM CARB-VIT D 500MG-200UN 1 EACH TAB PO SCH (08:27)
[2018-12-03] MEDS: ISOSORBIDE MONONITRATE ER 60 MG TAB.ER.24H PO SCH (08:27)
[2018-12-03] MEDS: CLOPIDOGREL 75 MG TAB PO SCH (08:27)
[2018-12-03] MEDS: FAMOTIDINE 20 MG TAB PO SCH (08:27)
[2018-12-03] MEDS ORDERED: NON FORMULARY DRUG (Omega-3 Fatty Acids/Fish Oil [Fish Oil 1,000 Mg Softgel] 1 CAP) PO SCH (09:00)
--- NOTE | 2018-12-03 11:31 | P.CRDCN ---
History of Present Illness History of present illness: This is a pleasant 78-year-old male past medical history significant for coronary artery disease, diabetes mellitus, hypertension, dyslipidemia and hypothyroidism. He follows in the office with Dr. Rojas. We have been asked to see him in consultation secondary to new onset atrial fibrillation. The patient presented to the emergency department yesterday with symptoms of overall generalized weakness. He initially presented to his primary care physician where they noted his heart rate be 150-160. He was sent to the hospital for further evaluation. EKG on arrival reveals atrial fibrillation with rapid ventricular response heart rate of 157, left axis deviation and incomplete right bundle branch block. He was initiated on Cardizem infusion along with heparin. He has converted to sinus mechanism. He is seen and examined up walking around the room in no acute distress. He denies chest discomfort, shortness of breath, dizziness or palpitations. He is scheduled to undergo complex angioplasty at [facility] in December. He underwent cardiac catheterization here in October revealing a 20% proximal LAD, 99% mid circumflex, 99% ostial OM and 60% mid RCA. Chest xray on admission chronic parenchymal changes with no acute process. Laboratory data reviewed, WBC 7.3, hemoglobin 12.3, platelets 196, sodium 135, potassium 4.2, creatinine 0.74, magnesium 1.6, cardiac enzymes negative 1, TSH 2.22. On admission magnesium was 1.3. Current cardiac medications include aspirin 81 mg daily, atenolol 25 mg twice a day, amlodipine 10 mg daily, atorvastatin 40 mg daily, Plavix 75 mg daily, hydrochlorothiazide 25 mg daily, Imdur 60 mg daily, clonidine 0.1 mg twice a day and losartan 100 mg daily. Most recent echocardiogram obtained in the office 2017 reveals preserved LV systolic function. At the time of my exam: CONSTITUTIONAL: Denies fever. Denies chills. EYES: Denies blurred vision. Denies vision changes. Denies eye pain. EARS, NOSE, MOUTH & THROAT: Denies headache. Denies sore throat. Denies ear pain. CARDIOVASCULAR: Denies chest pain. Denies shortness of breath. Denies orthopnea. Denies PND. Denies palpitations. RESPIRATORY: Denies cough. GASTROINTESTINAL: Denies abdominal pain. Denies diarrhea. Denies constipation. Denies nausea. Denies vomiting. MUSCULOSKELETAL: Denies myalgias. INTEGUMENTARY: Denies pruitis. Denies rash. NEUROLOGIC: Denies numbness. Denies tingling. Denies weakness. PSYCHIATRIC: Denies anxiety. Denies depression. ENDOCRINE: Denies fatigue. Denies weight change. Denies polydipsia. Denies polyurina. GENITOURINARY: Denies burning, hematuria or urgency with micturation. HEMATOLOGIC: Denies history of anemia. Denies bleeding. Blood pressure 190/84 heart rate 82 afebrile maintaining oxygen saturation on room air GENERAL: This is a 78-year-old male in no apparent distress at the time of my examination. HEENT: Head is atraumatic, normocephalic. Pupils are equal, round. Sclerae anicteric. Conjunctivae are clear. Mucous membranes of the mouth are moist. Neck is supple. There is no jugular venous distention. No carotid bruit is heard. LUNGS: Clear to auscultation no wheezes, rales or rhonchi. No chest wall tenderness is noted on palpation or with deep breathing. HEART: Regular rate and rhythm with systolic ejection murmur at the base, no rubs or gallops. S1 and S2 heard. ABDOMEN: Soft, nontender. Bowel sounds are heard. No organomegaly noted. EXTREMITIES: No evidence of peripheral edema and no calf tenderness noted. VASCULAR: Radial and dorsalis pedis pulses palpated, no evidence of clubbing. NEUROLOGIC: Patient is awake, alert and oriented x3. ASSESSMENT New-onset atrial fibrillation, paroxysmal. Currently maintaining sinus mechanism. Coronary artery disease, scheduled for complex angioplasty at [facility] in December Hypertension Dyslipidemia Diabetes mellitus PLAN Patient has spontaneously converted to sinus mechanism. Cardizem drip has been discontinued. We have asked case management to check the cost of Eliquis 5 mg BID. If not covered we will use coumadin. Instructed pt on the risks of thromboembolic event and he is agreeable to use an anticoagulant mcfp. Aspirin will be discontinued and plavix continued. Increase clonidine to 0.1 mg 3 times a day for better blood pressure control. Repeat 2-D echocardiogram and Doppler study to assess cardiac structure and fun ction. If echo is normal he may be discharge home on current regimen. Thank you kindly for this consultation. Nurse Practitioner note has been reviewed, I agree with a documented findings and plan of care. Patient was seen and examined. Past Medical History Past Medical History: Coronary Artery Disease (CAD), Chest Pain / Angina, Diabetes Mellitus, GERD/Reflux, Hyperlipidemia, Hypertension, Pneumonia, Syncope, Thyroid Disorder Additional Past Medical History / Comment(s): Pt had cardiac cath [facility] on 10/28/18-unable to stent/went to [facility] and will have atherectomy scheduled for 12/29/18 and was told at that visit that his EKG showed an infarction-age undetermined, NIDDM type II, arthritis in multiple joints, R index finger is t third rigger finger, chronic L shoulder pain, occasional low back pain, hypothyroid. History of Any Multi-Drug Resistant Organisms: None Reported Past Surgical History: Heart Catheterization, Hernia Repair, Joint Replacement, Orthopedic Surgery Additional Past Surgical History / Comment(s): 10/28/18 cardiac cath, R total reverse shoulder, L knee hemiarthroplasty, bilateral inguinal hernia repairs, colonoscopy, bilateral cataract removals/lens implants. Past Anesthesia/Blood Transfusion Reactions: No Reported Reaction Smoking Status: Former smoker - Past Family History Mother Family Medical History: Diabetes Mellitus, Hypertension Brother(s) Family Medical History: CVA/TIA, Myocardial Infarction ([place]) Additional Family Medical History / Comment(s): Pt had a brother who from a [place] and CVA at the age of 55yr. Father Family Medical History: Hypertension Medications and Allergies Home Medications Medication Instructions Recorded Confirmed Type Acetaminophen [Tylenol] 325 - 650 mg PO Q6HR PRN 02/15/17 12/02/18 History Aspirin [Adult Low Dose Aspirin EC] 81 mg PO DAILY 02/15/17 12/02/18 History Atenolol 25 mg PO BID 02/15/17 12/02/18 History Calcium Carbonate/Vitamin D3 1 tab PO DAILY 02/15/17 12/02/18 History [Calcium 600-Vit D3 500 Softgel] Levothyroxine Sodium [Levoxyl] 100 mcg PO DAILY 02/15/17 12/02/18 History Hastings-3 Fatty Acids/Fish Oil [Fish 1 cap PO DAILY 02/15/17 12/02/18 History Oil 1,000 mg Softgel] cloNIDine HCL [Catapres] 0.1 mg PO BID 02/15/17 12/02/18 History metFORMIN HCL [Glucophage] 1,000 mg PO BID 02/15/17 12/02/18 History Clopidogrel [Plavix] 75 mg PO DAILY #90 tab 10/29/18 12/02/18 Rx Hydrochlorothiazide [Hydrodiuril] 25 mg PO DAILY #90 tab 10/29/18 12/02/18 Rx Isosorbide Mononitrate ER [Imdur] 60 mg PO DAILY #30 tab.er.24h 10/29/18 12/02/18 Rx Losartan [Cozaar] 100 mg PO DAILY #90 tab 10/29/18 12/02/18 Rx amLODIPine [Norvasc] 10 mg PO DAILY #0 10/29/18 12/02/18 Rx Atorvastatin [Lipitor] 40 mg PO HS 12/02/18 12/02/18 History Vit C/E/Zn/Coppr/Lutein/Zeaxan 1 tablet PO BID 12/02/18 12/02/18 History [Preservision Areds 2 Softgel] Apixaban [Eliquis] 5 mg PO BID #180 tab 12/03/18 Rx Allergies Allergy/AdvReac Type Severity Reaction Status Date / Time ibuprofen AdvReac PASSED OUT Verified 12/02/18 11:32 Physical Exam Vitals: Vital Signs Temp Pulse Pulse Pulse Resp BP BP 12/03/18 08:00 97.5 F L 82 18 190/84 12/03/18 03:26 98.9 F 70 16 12/03/18 00:00 97.9 F 81 16 165/78 12/02/18 22:43 180/74 12/02/18 19:37 97.9 F 84 16 194/87 12/02/18 17:10 72 18 12/02/18 16:50 65 17 111/59 12/02/18 16:40 65 20 111/59 12/02/18 16:30 69 16 121/61 12/02/18 16:20 72 33 H 121/61 12/02/18 16:10 66 15 121/61 12/02/18 16:00 67 7 L 115/65 12/02/18 15:50 67 18 115/65 12/02/18 15:40 69 20 115/65 12/02/18 15:30 64 18 128/72 12/02/18 15:20 66 18 128/72 12/02/18 15:10 70 26 H 128/72 12/02/18 15:00 69 15 113/69 12/02/18 14:50 71 18 113/69 12/02/18 14:40 78 25 H 113/69 12/02/18 14:30 96 24 116/68 12/02/18 14:20 104 H 18 116/68 12/02/18 14:10 85 17 116/68 12/02/18 14:00 90 18 122/77 12/02/18 13:50 87 20 122/77 12/02/18 13:40 101 H 21 122/77 12/02/18 13:30 92 17 118/74 12/02/18 13:20 75 12 118/74 12/02/18 13:10 90 14 118/74 12/02/18 13:00 84 12 101/68 12/02/18 12:50 80 10 L 101/68 12/02/18 12:40 82 14 101/68 12/02/18 12:30 92 15 121/78 12/02/18 12:20 79 14 121/78 12/02/18 12:10 78 13 121/78 12/02/18 12:00 74 15 12/02/18 11:50 90 17 118/70 12/02/18 11:40 79 16 118/70 12/02/18 11:31 90 24 117/83 12/02/18 11:20 156 H 17 99/74 BP Pulse Ox 12/03/18 08:00 99 12/03/18 03:26 177/86 99 12/03/18 00:00 98 12/02/18 22:43 12/02/18 19:37 99 12/02/18 17:10 150/70 98 12/02/18 16:50 12/02/18 16:40 12/02/18 16:30 12/02/18 16:20 12/02/18 16:10 12/02/18 16:00 12/02/18 15:50 12/02/18 15:40 12/02/18 15:30 12/02/18 15:20 12/02/18 15:10 12/02/18 15:00 12/02/18 14:50 12/02/18 14:40 12/02/18 14:30 12/02/18 14:20 12/02/18 14:10 12/02/18 14:00 12/02/18 13:50 12/02/18 13:40 12/02/18 13:30 12/02/18 13:20 12/02/18 13:10 12/02/18 13:00 12/02/18 12:50 12/02/18 12:40 12/02/18 12:30 12/02/18 12:20 12/02/18 12:10 12/02/18 12:00 12/02/18 11:50 12/02/18 11:40 12/02/18 11:31 12/02/18 11:20 Intake and Output 12/02/18 12/03/18 12/03/18 22:59 06:59 14:59 Intake Total 320.188 91.555 Balance 320.188 91.555 Intake: Intake, IV Titration 80.188 91.555 Amount Heparin Sod,Pork in 0.45% 80.188 91.555 NaCl 25,000 unit In 0.45 % NaCl 1 250ml.bag @ 12 UNITS/KG/HR 9.471 mls/hr IV .Q24H [facility] Rx#: [id number] Oral 240 Other: Voiding Method Toilet # Voids 1 2 Weight 77.8 kg Results 12/03/18 02:35 12/03/18 02:35 Cardiac Enzymes 12/02/18 12/02/18 12/03/18 Range/Units 11:03 11:03 02:35 AST 30 26 (17-59) U/L Troponin I <0.012 (0.000-0.034) ng/mL Coagulation 12/02/18 12/02/18 12/03/18 Range/Units 11:03 19:01 02:35 PT 10.5 (9.0-12.0) sec APTT 27.7 35.0 H 47.3 H (22.0-30.0) sec CBC 12/02/18 12/03/18 Range/Units 11:03 02:35 WBC 10.4 7.3 (3.8-10.6) k/uL RBC 4.40 3.92 L (4.30-5.90) m/uL Hgb 13.8 12.3 L (13.0-17.5) gm/dL Hct 39.9 36.6 L (39.0-53.0) % Plt Count 246 196 (150-450) k/uL Comprehensive Metabolic Panel 12/02/18 12/03/18 Range/Units 11:03 02:35 Sodium 135 L 135 L (137-145) mmol/L Potassium 4.3 4.2 (3.5-5.1) mmol/L Chloride 94 L 98 (98-107) mmol/L Carbon Dioxide 27 25 (22-30) mmol/L BUN 17 22 H (9-20) mg/dL Creatinine 0.74 0.74 (0.66-1.25) mg/dL Glucose 166 H 146 H (74-99) mg/dL Calcium 9.8 9.1 (8.4-10.2) mg/dL AST 30 26 (17-59) U/L ALT 41 37 (21-72) U/L Alkaline Phosphatase 60 56 (38-126) U/L Total Protein 7.9 6.8 (6.3-8.2) g/dL Albumin 4.7 4.1 (3.5-5.0) g/dL Current Medications Generic Name Dose Route Start Last Admin Trade Name Vishalq PRN Reason Stop Dose Admin Acetaminophen 650 mg 12/02/18 12:29 Tylenol Tab PO Q6HR PRN Mild Pain or Fever > 100.5 Atenolol 25 mg 12/02/18 21:00 12/03/18 08:26 Tenormin PO 25 mg BID MARK Administration Atorvastatin Calcium 40 mg 12/02/18 21:00 12/02/18 19:37 Lipitor PO 40 mg HS MARK Administration Calcium Carbonate 1 each 12/03/18 09:00 12/03/18 08:27 Oscal 500+D PO 1 each DAILY MARK Administration Clonidine 0.1 mg 12/02/18 21:00 12/03/18 08:26 Catapres PO 0.1 mg BID MARK Administration Clopidogrel Bisulfate 75 mg 12/03/18 09:00 12/03/18 08:27 Plavix PO 75 mg DAILY MARK Administration Famotidine 20 mg 12/03/18 09:00 12/03/18 08:27 Pepcid PO 20 mg DAILY MARK Administration Heparin Sodium (Porcine) 0 unit 12/02/18 10:50 Heparin IV PER PROTOCOL PRN Low PTT Protocol Hydrochlorothiazide 25 mg 12/03/18 09:00 12/03/18 08:26 Hydrodiuril PO 25 mg DAILY MARK Administration Heparin Sodium/Sodium Chloride 250 mls @ 9.471 mls/hr 12/02/18 11:00 12/03/18 03:28 25,000 unit/ Sodium Chloride IV 15 units/kg/hr .Q24H [facility] 11.839 mls/hr Titration Protocol 12 UNITS/KG/HR Sodium Chloride 1,000 mls @ 20 mls/hr 12/02/18 12:30 12/02/18 15:39 Saline 0.9% IV 20 mls/hr .Q24H MARK Administration Insulin Aspart 0 unit 12/02/18 17:30 12/03/18 06:34 Novolog SQ 1 unit ACHS MARK Administration Protocol Isosorbide Mononitrate 60 mg 12/03/18 09:00 12/03/18 08:27 Imdur PO 60 mg DAILY MARK Administration Levothyroxine Sodium 100 mcg 12/03/18 06:30 12/03/18 06:34 Synthroid PO 100 mcg DAILY@0630 MARK Administration Losartan Potassium 100 mg 12/03/18 09:00 12/03/18 08:26 Cozaar PO 100 mg DAILY MARK Administration Melatonin 5 mg 12/02/18 22:40 12/02/18 22:55 Melatonin PO 5 mg HS PRN Administration Insomnia Naloxone HCl 0.2 mg 12/02/18 12:29 Narcan IV Q2M PRN Opioid Reversal Ondansetron HCl 4 mg 12/02/18 12:29 Zofran IVP Q8HR PRN Nausea And Vomiting Oxycodone/Acetaminophen 1 each 12/02/18 12:29 Percocet 5-325 PO Q4HR PRN Severe Pain Pantoprazole Sodium 40 mg 12/03/18 07:30 12/03/18 06:31 Protonix PO Not Given AC-BRKFST MARK Intake and Output 12/02/18 12/03/18 12/03/18 22:59 06:59 14:59 Intake Total 320.188 91.555 Balance 320.188 91.555 Intake: Intake, IV Titration 80.188 91.555 Amount Heparin Sod,Pork in 0.45% 80.188 91.555 NaCl 25,000 unit In 0.45 % NaCl 1 250ml.bag @ 12 UNITS/KG/HR 9.471 mls/hr IV .Q24H [facility] Rx#: [id number] Oral 240 Other: Voiding Method Toilet # Voids 1 2 Weight 77.8 kg 12/03/18 02:35 12/03/18 02:35
[2018-12-03] MEDS: SODIUM CHLORIDE 0.9% 1,000 ML IV SCH (11:58)
[2018-12-03 12:10] LABS: Glucose,Whole Blood 159 mg/dL (75-99)
[2018-12-03] MEDS: HEPARIN SOD,PORK IN 0.45% NACL 25,000 UNIT in 0.45% NACL 1 250ML.BAG IV SCH (12:18)
[2018-12-03] MEDS: APIXABAN 5 MG TAB PO SCH ×2 (14:04→20:37)
--- NOTE | 2018-12-03 14:47 | P.PN ---
Subjective Progress Note Date: 12/03/18 This is a 78-year-old male patient of Dr. Murphy. Patient presented with complaints of irregular rhythm. Patient reports that he woke up this morning with some mild chest discomfort and a feeling of heart palpitations. Patient had appointment at PCP and was found to be in atrial fibrillation with a heart rate of 150s. PCP sent patient ER for further evaluation. On 10/29/2018 patient underwent cardiac cath with Dr. Rojas. During cardiac cath is found that patient had heavily calcified left circumflex was subtotally occluded mid circumflex and second obtuse marginal branch. At that time angioplasty and stenting were unsuccessful because of severe calcification. Patient was referred to [facility]. Patient states he did follow up with [facility] and planned angioplasty in early December. Additional medical history includes chest pain, diabetes mellitus, hyperlipidemia, essential hypertension, hypothyroidism and ex-smoker. Chest x-ray completed showing chronic parenchymal changes and cardiomegaly without acute pulmonary process. EKG completed showing atrial flutter with variable AV block. Patient was started on Cardizem and heparin drips. Patient's heart rate at this time remains irregular but controlled. Magnesium low at 1.3 replace per protocol. AM labs have been ordered cardiology consult placed. At this time patient denies chest pain or shortness of breath. Patient denies nausea vomiting or diarrhea. Patient denies any urinary burning or frequency On 12/03/2018 patient was seen and examined on the telemetry floor blood pressure this morning was significantly elevated. Patient denies any chest pain or shortness of breath no palpitation, there is no fever or chills no headache or dizziness no nausea or vomiting no abdominal pain no diarrhea and no urinary symptoms Objective - Vital Signs Vital signs: Vital Signs Temp 97.8 F 12/03/18 12:00 Pulse 62 12/03/18 12:00 Resp 16 12/03/18 12:00 BP 134/63 12/03/18 12:00 Pulse Ox 97 12/03/18 12:00 Intake & Output 12/02/18 12/03/18 12/03/18 18:59 06:59 18:59 Intake Total 411.743 420 Balance 411.743 420 Weight 78.925 kg 77.8 kg Intake: Intake, IV Titration 171.743 Amount Heparin Sod,Pork in 0.45% 171.743 NaCl 25,000 unit In 0.45 % NaCl 1 250ml.bag @ 12 UNITS/KG/HR 9.471 mls/hr IV .Q24H [facility] Rx#: [id number] Oral 240 420 Other: Voiding Method Toilet # Voids 2 3 - Exam In general patient is alert and oriented 3 in no apparent distress Head normocephalic and atraumatic Neck supple no JVD no goiter Lungs clear to auscultation bilaterally no wheezing or crackles Heart irregular rate no gallops no murmurs Abdomen is soft nontender nondistended positive bowel sounds no hepatosplenomegaly Extremities no edema no cyanosis or clubbing Neuro no gross focal neurological deficit - Labs CBC & Chem 7: 12/03/18 02:35 12/03/18 02:35 Labs: Abnormal Lab Results - Last 24 Hours (Table) 12/02/18 12/02/18 12/02/18 Range/Units 17:10 19:01 20:36 RBC (4.30-5.90) m/uL Hgb (13.0-17.5) gm/dL Hct (39.0-53.0) % APTT 35.0 H (22.0-30.0) sec Sodium (137-145) mmol/L BUN (9-20) mg/dL Glucose (74-99) mg/dL POC Glucose (mg/dL) 157 H 149 H (75-99) mg/dL 12/03/18 12/03/18 12/03/18 Range/Units 02:35 02:35 02:35 RBC 3.92 L (4.30-5.90) m/uL Hgb 12.3 L (13.0-17.5) gm/dL Hct 36.6 L (39.0-53.0) % APTT 47.3 H (22.0-30.0) sec Sodium 135 L (137-145) mmol/L BUN 22 H (9-20) mg/dL Glucose 146 H (74-99) mg/dL POC Glucose (mg/dL) (75-99) mg/dL 12/03/18 12/03/18 Range/Units 06:26 11:40 RBC (4.30-5.90) m/uL Hgb (13.0-17.5) gm/dL Hct (39.0-53.0) % APTT (22.0-30.0) sec Sodium (137-145) mmol/L BUN (9-20) mg/dL Glucose (74-99) mg/dL POC Glucose (mg/dL) 158 H 159 H (75-99) mg/dL Assessment and Plan Plan: 1. New onset atrial flutter. Patient started on Cardizem and heparin drip. Cardiology services have been consulted 2. Known coronary artery disease. Patient underwent heart cath on October [address] glass on and was found to have heavily calcified left circumflex was subtotally occluded mid circumflex and second obtuse marginal branch. At that time angioplasty was unsuccessful due to severe desiccation patient was referred to [facility]. Patient states he did follow with [facility] and has scheduled angioplasty in December 3. Hypomagnesemia. Magnesium 1.3 replaced per protocol recheck in a.m. 4. Hypothyroidism. TSH level ordered. Synthroid resumed 5. Diabetes mellitus type 2. Metformin on hold sliding scale insulin ordered 6. Hyperlipidemia. Statin resumed 7. Essential hypertension Blood pressure is still fluctuating dose of Catapres increased today by c ardiology Echo cardiogram done but not read yet no report available Ellik was was added today to regimen Possible discharge discussed with patient and his , he feels that he would benefit of staying 1 more day DVT prophylaxis patient is off IV heparin he was started today on Ellik was. GI prophylaxis Pepcid
--- NOTE | 2018-12-03 15:40 | ECHOF ---
Referral Reason:afib MEASUREMENTS -------- HEIGHT: 170.2 cm WEIGHT: 77.6 kg BP: 190/84 IVSd: 1.7 cm (0.6 - 1.1) LVIDd: 4.3 cm (3.9 - 5.3) LVPWd: 1.1 cm (0.6 - 1.1) IVSs: 1.8 cm LVIDs: 2.6 cm LVPWs: 1.6 cm LA Diam: 4.2 cm (2.7 - 3.8) Ao Diam: 3.2 cm (2.0 - 3.7) AV Cusp: 1.8 cm (1.5 - 2.6) LA Diam: 4.1 cm (2.7 - 3.8) MV EXCURSION: 16.312 mm (> 18.000) MV EF SLOPE: 77 mm/s (70 - 150) MV E Alex: 1.05 m/s MV DecT: 454 ms MV A Alex: 1.32 m/s MV E/A Ratio: 0.80 FINDINGS -------- Sinus rhythm. This was a technically good study. LV size, wall thickness and systolic function are normal, with an EF greater than 55%. There is nor mal global left ventricular contractility. The right ventricle is normal in size and function. The left atrium is normal in size. The right atrium is normal in size. Interatrial and interventricular septum intact. The aortic valve is trileaflet, and appears structurally normal. No aortic stenosis or regurgitation. There is mild aortic valve sclerosis. The mitral valve is normal. Mild mitral annular calcification present. The tricuspid valve appears structurally normal. There is no evidence of pulmonary hypertension. Pulmonic valve appears structurally normal. The aortic root, ascending aorta and aortic arch are normal. The pericardium is normal. CONCLUSIONS -------- 1. Sinus rhythm. 2. This was a technically good study. 3. LV size, wall thickness and systolic function are normal, with an EF greater than 55%. 4. There is normal global left ventricular contractility. 5. The right ventricle is normal in size and function. 6. The left atrium is normal in size. 7. The right atrium is normal in size. 8. Interatrial and interventricular septum intact. 9. The aortic valve is trileaflet, and appears structurally normal. No aortic stenosis or regurgitati on. 10. There is mild aortic valve sclerosis. 11. The mitral valve is normal. 12. Mild mitral annular calcification present. 13. The tricuspid valve appears structurally normal. 14. There is no evidence of pulmonary hypertension. 15. Pulmonic valve appears structurally normal. 16. The aortic root, ascending aorta and aortic arch are normal. 17. The pericardium is normal. MANAGER COSTING: Godfrey Seo RDCS
[2018-12-03 17:28] LABS: Glucose,Whole Blood 185 mg/dL (75-99)
[2018-12-03 20:33] LABS: Glucose,Whole Blood 166 mg/dL (75-99)
[2018-12-03] MEDS: ATORVASTATIN 40 MG TAB PO SCH (20:37)
[2018-12-03] MEDS: MELATONIN 5 MG TABLET PO PRN (22:56)
[2018-12-04 04:03] LABS: Basophils % (A) 0 %; Eosinophils # (A) 0.1 k/uL (0-0.7); Eosinophils % (A) 2 %; HCT 34.4 % (39.0-53.0); Lymphocytes # (A) 1.3 k/uL (1.0-4.8); Lymphocytes % (A) 18 %; MCH 29.2 pg (25.0-35.0); MCHC 32.1 g/dL (31.0-37.0); MCV 90.9 fL (80.0-100.0); Mean Platelet Volume 7.9; Monocytes # (A) 0.4 k/uL (0-1.0); Monocytes % (A) 6 %; Neutrophils # (A) 4.9 k/uL (1.3-7.7); Neutrophils % (A) 70 %; Platelet Count 190 k/uL (150-450); RBC 3.78 m/uL (4.30-5.90)
[2018-12-04 04:24] LABS: ALT 35 U/L (21-72); AST 24 U/L (17-59); African American GFR (CKD) >90 (>60 ml/min/1.73 sqM); Albumin 3.9 g/dL (3.5-5.0); Alkaline Phosphatase 49 U/L (38-126); Anion Gap 11 mmol/L; Blood Urea Nitrogen 16 mg/dL (9-20); Carbon Dioxide 27 mmol/L (22-30); Chloride 97 mmol/L (98-107); Glucose 152 mg/dL (74-99); Potassium 4.1 mmol/L (3.5-5.1); Sodium 135 mmol/L (137-145); Total Bilirubin 0.4 mg/dL (0.2-1.3); Total Protein 6.6 g/dL (6.3-8.2)
[2018-12-04] MEDS: PANTOPRAZOLE 40 MG TABLET PO SCH (06:17)
[2018-12-04 06:21] LABS: Glucose,Whole Blood 177 mg/dL (75-99)
[2018-12-04] MEDS: INSULIN ASPART (NovoLOG) 100 UNIT/ML VIAL SQ SCH ×3 (06:23→13:56)
[2018-12-04] MEDS: LEVOTHYROXINE 100 MCG TAB PO SCH (06:23)
[2018-12-04] MEDS: FAMOTIDINE 20 MG TAB PO SCH (08:10)
[2018-12-04] MEDS: APIXABAN 5 MG TAB PO SCH (08:10)
[2018-12-04] MEDS: LOSARTAN 50 MG TAB PO SCH (08:10)
[2018-12-04] MEDS: HYDROCHLOROTHIAZIDE 25 MG TAB PO SCH (08:10)
[2018-12-04] MEDS: ATENOLOL 25 MG TAB PO SCH (08:10)
[2018-12-04] MEDS: cloNIDine HCL 0.1 MG TAB PO SCH (08:11)
[2018-12-04] MEDS: ISOSORBIDE MONONITRATE ER 60 MG TAB.ER.24H PO SCH (08:11)
[2018-12-04] MEDS: CLOPIDOGREL 75 MG TAB PO SCH (08:11)
[2018-12-04] MEDS: CALCIUM CARB-VIT D 500MG-200UN 1 EACH TAB PO SCH (08:11)
[2018-12-04] MEDS: SODIUM CHLORIDE 0.9% 1,000 ML IV SCH (08:14)
[2018-12-04] MEDS ORDERED: amLODIPine 10 MG TAB PO SCH (09:00)
[2018-12-04] MEDS ORDERED: cloNIDine HCL 0.1 MG TAB PO SCH ×2 (09:00→16:00)
--- NOTE | 2018-12-04 10:46 | P.PN ---
Subjective This is a pleasant 78-year-old male past medical history significant for coronary artery disease, diabetes mellitus, hypertension, dyslipidemia and hypothyroidism. He follows in the office with Dr. Rojas. He is seen and examined sitting in bed in no acute distress. Denies chest pain, shortness of breath, dizziness or palpitations. He states he was woken up frequently through the night and did not give much sleep. Blood pressure this morning 174/88 heart rate 76 afebrile maintaining oxygen saturation on room air. Laboratory data reviewed, WBC 7.0, hemoglobin 11, platelets 190, sodium 135, potassium 4.1, creatinine 0.76. Telemetry tracings reviewed and reveal persistent sinus mechanism with no further episodes of atrial fibrillation. Echocardiogram reveals preserved LV systolic function with ejection fraction greater than 55%. GENERAL: This is a 78-year-old male in no apparent distress at the time of my examination. HEENT: Head is atraumatic, normocephalic. Pupils are equal, round. Sclerae anicteric. Conjunctivae are clear. Mucous membranes of the mouth are moist. Neck is supple. There is no jugular venous distention. No carotid bruit is heard. LUNGS: Clear to auscultation no wheezes, rales or rhonchi. No chest wall tenderness is noted on palpation or with deep breathing. HEART: Regular rate and rhythm with systolic ejection murmur at the base, no rubs or gallops. S1 and S2 heard. EXTREMITIES: No evidence of peripheral edema and no calf tenderness noted. ASSESSMENT New-onset atrial fibrillation, paroxysmal. Currently maintaining sinus mechanism. Coronary artery disease, scheduled for complex angioplasty at [facility] in December Hypertension Dyslipidemia Diabetes mellitus PLAN Resume amlodipine 10 mg daily. Stable for discharge from a cardiac perspective. Nurse Practitioner note has been reviewed, I agree with a documented findings and plan of care. Patient was seen and examined. Objective - Vital Signs Vital signs: Vital Signs Temp 97.6 F 12/04/18 08:18 Pulse 76 12/04/18 08:18 Resp 18 12/04/18 08:18 BP 174/88 12/04/18 08:18 Pulse Ox 99 12/04/18 08:18 Intake & Output 12/03/18 12/04/18 12/04/18 18:59 06:59 18:59 Intake Total 420 260 360 Balance 420 260 360 Weight 77.6 kg Intake: Intake, IV Titration 20 Amount Sodium Chloride 0.9% 1, 20 000 ml @ 20 mls/hr IV . Q24H [facility] Rx#:[id number] Oral 420 240 360 Other: Voiding Method Toilet Toilet # Voids 3 1 - Labs CBC & Chem 7: 12/04/18 03:53 12/04/18 03:53 Labs: Abnormal Lab Results - Last 24 Hours (Table) 12/03/18 12/03/18 12/03/18 Range/Units 11:40 17:01 20:32 RBC (4.30-5.90) m/uL Hgb (13.0-17.5) gm/dL Hct (39.0-53.0) % Sodium (137-145) mmol/L Chloride (98-107) mmol/L Glucose (74-99) mg/dL POC Glucose (mg/dL) 159 H 185 H 166 H (75-99) mg/dL 12/04/18 12/04/18 12/04/18 Range/Units 03:53 03:53 06:20 RBC 3.78 L (4.30-5.90) m/uL Hgb 11.0 L (13.0-17.5) gm/dL Hct 34.4 L (39.0-53.0) % Sodium 135 L (137-145) mmol/L Chloride 97 L (98-107) mmol/L Glucose 152 H (74-99) mg/dL POC Glucose (mg/dL) 177 H (75-99) mg/dL
[2018-12-04 11:40] VITALS: BP 151/77; PULSE 66; RESP 16; TEMP 97.9
[2018-12-04 11:51] LABS: Glucose,Whole Blood 196 mg/dL (75-99)
--- NOTE | 2018-12-04 13:32 | P.DS ---
Providers Date of admission: 12/02/18 12:29 Expected date of discharge: 12/04/18 Attending physician: Steven Spring Consults: 12/02/18 12:30 Consult Physician Routine Consulting Provider: Nova Rojas Consult Reason/Comments: new onset atrial flutter Do you want consulting provider notified?: Yes [place] [facility] [place] Diagnoses on discharge: 1. New onset atrial flutter. Patient started on Cardizem and heparin drip. Cardiology services have been consulted 2. Known coronary artery disease. Patient underwent heart cath on October [address] maria luisa roberts and was found to have heavily calcified left circumflex was subtotally occluded mid circumflex and second obtuse marginal branch. At that time angioplasty was unsuccessful due to severe desiccation patient was referred to [facility]. Patient states he did follow with [facility] and has scheduled angioplasty in December 3. Hypomagnesemia. Magnesium 1.3 replaced per protocol recheck in a.m. 4. Hypothyroidism. TSH level ordered. Synthroid resumed 5. Diabetes mellitus type 2. Metformin on hold sliding scale insulin ordered 6. Hyperlipidemia. Statin resumed 7. Essential hypertension Hospital course: This is a 78-year-old male patient of Dr. Murphy. Patient presented with complaints of irregular rhythm. Patient reports that he woke up this morning with some mild chest discomfort and a feeling of heart palpitations. Patient had appointment at PCP and was found to be in atrial fibrillation with a heart rate of 150s. PCP sent patient ER for further evaluation. On 10/29/2018 patient underwent cardiac cath with Dr. Rojas. During cardiac cath is found that patient had heavily calcified left circumflex was subtotally occluded mid circumflex and second obtuse marginal branch. At that time angioplasty and stenting were unsuccessful because of severe calcification. Patient was referred to [facility]. Patient states he did follow up with [facility] and planned angioplasty in early December. Additional medical history includes chest pain, diabetes mellitus, hyperlipidemia, essential hypertension, hypothyroidism and ex-smoker. Chest x-ray completed showing chronic parenchymal changes and cardiomegaly without acute pulmonary process. EKG completed showing atrial flutter with variable AV block. Patient was started on Cardizem and heparin drips. Patient's heart rate at this time remains irregular but controlled. Magnesium low at 1.3 replace per protocol. AM labs have been ordered cardiology consult placed. At this time patient denies chest pain or shortness of breath. Patient denies nausea vomiting or diarrhea. Patient denies any urinary burning or frequency On 12/03/2018 patient was seen and examined on the telemetry floor blood pressure this morning was significantly elevated. Patient denies any chest pain or shortness of breath no palpitation, there is no fever or chills no headache or dizziness no nausea or vomiting no abdominal pain no diarrhea and no urinary symptoms On 12/04/2018 patient was seen and examined on the telemetry floor he is alert and oriented 3 in no apparent distress he was evaluated by cardiology his blood pressure medication were adjusted and he was cleared for discharge to home today. Patient states he is feeling well he denies any fever or chills no headache or dizziness no chest pain no shortness of breath no cough no palpitation no nausea or vomiting no abdominal pain no diarrhea no burning was urination no frequency or urgency no hematuria. Eliquis was 5 mg by mouth twice daily was added to regimen patient was given a prescription. Also dose of Catapres 0.1 mg was increased to 3 times daily follow-up with cardiology within 1 week follow-up with primary care physician within one week Patient Condition at Discharge: Fair Plan - Discharge Summary Discharge Rx Participant: No New Discharge Prescriptions: New Apixaban [Eliquis] 5 mg PO BID #180 tab cloNIDine HCL [Catapres] 0.1 mg PO TID tab Apixaban [Eliquis] 5 mg PO BID tab amLODIPine [Norvasc] 10 mg PO DAILY tab Continue Levothyroxine Sodium [Levoxyl] 100 mcg PO DAILY Atenolol 25 mg PO BID Acetaminophen [Tylenol] 325 - 650 mg PO Q6HR PRN PRN Reason: Pain Calcium Carbonate/Vitamin D3 [Calcium 600-Vit D3 500 Softgel] 1 tab PO DAILY metFORMIN HCL [Glucophage] 1,000 mg PO BID [place]-3 Fatty Acids/Fish Oil [Fish Oil 1,000 mg Softgel] 1 cap PO DAILY Losartan [Cozaar] 100 mg PO DAILY #90 tab Hydrochlorothiazide [Hydrodiuril] 25 mg PO DAILY #90 tab Isosorbide Mononitrate ER [Imdur] 60 mg PO DAILY #30 tab.er.24h Clopidogrel [Plavix] 75 mg PO DAILY #90 tab Atorvastatin [Lipitor] 40 mg PO HS Vit C/E/Zn/Coppr/Lutein/Zeaxan [Preservision Areds 2 Softgel] 1 tablet PO BID Discontinued Aspirin [Adult Low Dose Aspirin EC] 81 mg PO DAILY cloNIDine HCL [Catapres] 0.1 mg PO BID amLODIPine [Norvasc] 10 mg PO DAILY #0 Discharge Medication List Acetaminophen [Tylenol] 325 - 650 mg PO Q6HR PRN 02/15/17 [History] Atenolol 25 mg PO BID 02/15/17 [History] Calcium Carbonate/Vitamin D3 [Calcium 600-Vit D3 500 Softgel] 1 tab PO DAILY 02/15/17 [History] Levothyroxine Sodium [Levoxyl] 100 mcg PO DAILY 02/15/17 [History] [place]-3 Fatty Acids/Fish Oil [Fish Oil 1,000 mg Softgel] 1 cap PO DAILY 02/15/17 [History] metFORMIN HCL [Glucophage] 1,000 mg PO BID 02/15/17 [History] Clopidogrel [Plavix] 75 mg PO DAILY #90 tab 10/29/18 [Rx] Hydrochlorothiazide [Hydrodiuril] 25 mg PO DAILY #90 tab 10/29/18 [Rx] Isosorbide Mononitrate ER [Imdur] 60 mg PO DAILY #30 tab.er.24h 10/29/18 [Rx] Losartan [Cozaar] 100 mg PO DAILY #90 tab 10/29/18 [Rx] Atorvastatin [Lipitor] 40 mg PO HS 12/02/18 [History] Vit C/E/Zn/Coppr/Lutein/Zeaxan [Preservision Areds 2 Softgel] 1 tablet PO BID 12/02/18 [History] Apixaban [Eliquis] 5 mg PO BID #180 tab 12/03/18 [Rx] Apixaban [Eliquis] 5 mg PO BID tab 12/04/18 [Rx] amLODIPine [Norvasc] 10 mg PO DAILY tab 12/04/18 [Rx] cloNIDine HCL [Catapres] 0.1 mg PO TID tab 12/04/18 [Rx] Follow up Appointment(s)/Referral(s): Nova Rojas MD [STAFF PHYSICIAN] - 2 Weeks Mary Leon MD [Primary Care Provider] - 1-2 days
== END 2018-12-04 14:44 | disposition home or self-care (01) | DRG 310 ==
LOC: EC 10:23 → 3SCARD 12:29
PROVIDERS: ADMIT Internal Medicine; ATTEND Internal Medicine
DX: I48.92 Unspecified atrial flutter (principal); I25.10 Atherosclerotic heart disease of native coronary artery without angina pectoris; I10 Essential (primary) hypertension; E78.5 Hyperlipidemia, unspecified; E11.9 Type 2 diabetes mellitus without complications; M19.90 Unspecified osteoarthritis, unspecified site; E83.42 Hypomagnesemia; E03.9 Hypothyroidism, unspecified; I44.30 Unspecified atrioventricular block; I45.10 Unspecified right bundle-branch block; I48.0 Paroxysmal atrial fibrillation; K21.9 Gastro-esophageal reflux disease without esophagitis; Z96.1 Presence of intraocular lens; Z79.02 Long term (current) use of antithrombotics/antiplatelets; Z79.82 Long term (current) use of aspirin; Z79.899 Other long term (current) drug therapy; Z79.890 Hormone replacement therapy; Z79.84 Long term (current) use of oral hypoglycemic drugs; Z87.891 Personal history of nicotine dependence; Z79.01 Long term (current) use of anticoagulants; Z82.3 Family history of stroke; Z82.49 Family history of ischemic heart disease and other diseases of the circulatory system; Z83.3 Family history of diabetes mellitus; Z88.6 Allergy status to analgesic agent; Z98.42 Cataract extraction status, left eye; Z98.41 Cataract extraction status, right eye; Z87.01 Personal history of pneumonia (recurrent)
CPT/HCPCS: 36415; 71045; 80053; 83735; 84443; 84484; 85025; 85610; 85730; 93005; 93306; 96365; 96366; 96368; 96376; 99285

== ENCOUNTER → 2018-12-14 | Outpatient (CLI) | payer MEDICARE ==
[2018-12-14 12:42] LABS: HCT 34.3 % (39.0-53.0); HGB 11.9 gm/dL (13.0-17.5); MCH 31.6 pg (25.0-35.0); MCHC 34.6 g/dL (31.0-37.0); MCV 91.1 fL (80.0-100.0); Mean Platelet Volume 6.7; Platelet Count 212 k/uL (150-450); RBC 3.76 m/uL (4.30-5.90); RDW 12.8 % (11.5-15.5); WBC 6.7 k/uL (3.8-10.6)
[2018-12-14 12:51] LABS: Prothrombin Time 10.6 sec (9.0-12.0)
[2018-12-14 22:03] LABS: African American GFR (CKD) 98.5 (60.0-200.0); Anion Gap 13.1 mmol/L (4.00-12.00); BUN/Creat Ratio 17.5 Ratio (12.00-20.00); Calcium 9.2 mg/dL (8.7-10.3); Carbon Dioxide 24.9 mmol/L (21.6-31.8); Magnesium 1.4 mg/dL (1.5-2.4); Potassium 4.1 mmol/L (3.5-5.5)
== END ==
LOC: LABWHC1 11:37
PROVIDERS: ATTEND Internal Medicine Interventional Cardiology
DX: I25.118 Atherosclerotic heart disease of native coronary artery with other forms of angina pectoris (principal)
CPT/HCPCS: 36415; 80048; 83735; 85027; 85610

== ENCOUNTER 2018-12-21 04:36 | Inpatient (IN) | payer MEDICARE ==
[2018-12-21] MEDS ORDERED: DILTIAZEM DRIP BOLUS FROM BAG 1 MG SOLN IV ONE (05:06)
--- NOTE | 2018-12-21 05:08 | ED ---
Chest Pain HPI - General Chief Complaint: Chest Pain Stated Complaint: High blood pressure,chest pressure Source: patient Mode of arrival: wheelchair Limitations: physical limitation - History of Present Illness Initial Comments: Ariel 78-year-old gentleman with a history of CAD and A. fib who presents the ER today for evaluation of chest pressure and palpitations. Patient reports that he was seen and evaluated approximately 3 weeks Ago he had a cardiac catheterization that time and was advised that he had a complicated coronary artery occlusion and was referred to [facility] for further treatment. Patient has been compliant with all of his home medications including aspirin products in [facility]. Patient reports he's been feeling well until he woke up this morning with chest pressure and palpitations similar to previous episode of A. fib. - Related Data Home Medications Medication Instructions Recorded Confirmed Acetaminophen [Tylenol] 325 - 650 mg PO Q6HR PRN 02/15/17 12/02/18 Atenolol 25 mg PO BID 02/15/17 12/02/18 Calcium Carbonate/Vitamin D3 1 tab PO DAILY 02/15/17 12/02/18 [Calcium 600-Vit D3 500 Softgel] Levothyroxine Sodium [Levoxyl] 100 mcg PO DAILY 02/15/17 12/02/18 [place]-3 Fatty Acids/Fish Oil [Fish 1 cap PO DAILY 02/15/17 12/02/18 Oil 1,000 mg Softgel] metFORMIN HCL [Glucophage] 1,000 mg PO BID 02/15/17 12/02/18 Atorvastatin [Lipitor] 40 mg PO HS 12/02/18 12/02/18 Vit C/E/Zn/Coppr/Lutein/Zeaxan 1 tablet PO BID 12/02/18 12/02/18 [Preservision Areds 2 Softgel] Previous Rx's Medication Instructions Recorded Clopidogrel [Plavix] 75 mg PO DAILY #90 tab 10/29/18 Hydrochlorothiazide [Hydrodiuril] 25 mg PO DAILY #90 tab 10/29/18 Isosorbide Mononitrate ER [Imdur] 60 mg PO DAILY #30 tab.er.24h 10/29/18 Losartan [Cozaar] 100 mg PO DAILY #90 tab 10/29/18 Apixaban [Eliquis] 5 mg PO BID #180 tab 12/03/18 Apixaban [Eliquis] 5 mg PO BID tab 12/04/18 amLODIPine [Norvasc] 10 mg PO DAILY tab 12/04/18 cloNIDine HCL [Catapres] 0.1 mg PO TID tab 12/04/18 Allergies Allergy/AdvReac Type Severity Reaction Status Date / Time ibuprofen AdvReac PASSED OUT Verified 12/21/18 04:42 Review of Systems ROS Statement: Those systems with pertinent positive or pertinent negative responses have been documented in the HPI. ROS Other: All systems not noted in ROS Statement are negative. EKG Findings - EKG Comments: EKG Findings:: EKG was obtained due to complaint of chest pressure and evaluation of tachycardia, EKG was obtained at 4:50 AM, rate is 140 rhythm is a narrow complex irregularly irregular tachycardia consistent with atrial fibrillation with frequent PVCs. No acute ST elevations or depressions no evidence of acute ischemia or infarction. Repeat EKG was again obtained due to change in rhythm, EKG obtained at 4:58 AM, rate is 140 rhythm is a narrow, but irregularly irregular tachycardia consistent with A. fib with RVR. There are no acute ST elevations or depressions present on this EKG. Repeat EKG was obtained due to change in rhythm, repeat EKG obtained at 5:41 AM, rate is 154, rhythm is now a narrow complex regular tachycardia consistent with SVT her is some ST elevations in lead V1 with ST depressions laterally this is concerning for ischemia likely secondary to supply demand. Repeat EKG was obtained due to another change in rhythm, EKG obtained at 6:36 AM, rate is 80 rhythm appears to be atrial flutter with a 3-1 block. There are no acute ST elevations or depressions no evidence of acute ischemia or infarction. Past Medical History Past Medical History: Coronary Artery Disease (CAD), Chest Pain / Angina, Diabetes Mellitus, GERD/Reflux, Hyperlipidemia, Hypertension, Pneumonia, Syncope, Thyroid Disorder Additional Past Medical History / Comment(s): Pt had cardiac cath [facility] on 10/28/18-unable to stent/went to [facility] and will have atherectomy scheduled for 12/29/18 and was told at that visit that his EKG showed an infarction-age undetermined, NIDDM type II, arthritis in multiple joints, R index finger is trigger finger, chronic L shoulder pain, occasional low back pain, hypothyroid. History of Any Multi-Drug Resistant Organisms: None Reported Past Surgical History: Heart Catheterization, Hernia Repair, Joint Replacement, Orthopedic Surgery Additional Past Surgical History / Comment(s): 10/28/18 cardiac cath, R total reverse shoulder, L knee hemiarthroplasty, bilateral inguinal hernia repairs, colonoscopy, bilateral cataract removals/lens implants. Past Anesthesia/Blood Transfusion Reactions: No Reported Reaction Past Psychological History: No Psychological Hx Reported Smoking Status: Former smoker - Past Family History Mother Family Medical History: Diabetes Mellitus, Hypertension Brother(s) Family Medical History: CVA/TIA, Myocardial Infarction (HI) Additional Family Medical History / Comment(s): Pt had a brother who from a HI and CVA at the age of 55yr. Father Family Medical History: Hypertension General Exam - General Exam Comments Initial Comments: Physical Exam GENERAL: Patient is well-developed and well-nourished. Patient is nontoxic and well- hydrated and is in no distress. HENT: Normocephalic, Atraumatic. EYES: PERRL, EOMI PULMONARY: Unlabored respirations. No audible rales rhonchi or wheezing was noted. CARDIOVASCULAR: There is a regular rate and rhythm without any murmurs gallops or rubs. ABDOMEN: Soft and nontender with normal bowel sounds. SKIN: Skin is clear with no lesions or rashes and otherwise unremarkable. : Deferred NEUROLOGIC: Patient is alert and oriented x3. Moving all extremities spontaneously MUSCULOSKELETAL: Normal extremities with adequate strength and full range of motion. No lower extremity swelling or edema. No calf tenderness. PSYCHIATRIC: Normal psychiatric evaluation. Limitations: physical limitation Course Vital Signs 12/21/18 12/21/18 12/21/18 04:39 04:42 05:30 Temperature 98.3 F Pulse Rate 128 H 128 H Pulse Rate [ 130 H [employer] Development Manager ] Respiratory 18 Rate Blood Pressure 157/81 153/104 O2 Sat by Pulse 99 100 Oximetry 12/21/18 12/21/18 12/21/18 05:32 05:40 06:00 Temperature Pulse Rate 152 H 154 H 148 H Pulse Rate [ [employer] Development Manager ] Respiratory 19 Rate Blood Pressure 148/104 148/104 150/113 O2 Sat by Pulse 100 99 99 Oximetry 12/21/18 12/21/18 12/21/18 06:20 06:25 06:30 Temperature Pulse Rate 154 H 132 H 112 H Pulse Rate [ [employer] Development Manager ] Respiratory 19 18 16 Rate Blood Pressure 151/90 123/108 137/79 O2 Sat by Pulse 99 98 99 Oximetry 12/21/18 12/21/18 12/21/18 06:35 06:40 06:45 Temperature Pulse Rate 80 80 80 Pulse Rate [ [employer] Development Manager ] Respiratory 15 16 16 Rate Blood Pressure 137/74 137/77 128/72 O2 Sat by Pulse 99 98 99 Oximetry 12/21/18 12/21/18 06:50 06:55 Temperature Pulse Rate 80 80 Pulse Rate [ [employer] Development Manager ] Respiratory 16 15 Rate Blood Pressure 137/73 133/75 O2 Sat by Pulse 99 98 Oximetry Chest Pain MDM - MDM She was seen and evaluated history is obtained from the patient, and review of medical records Nexus 78-year-old woman with known coronary artery disease with significant stenosis of his left circumflex which was unable to be stented due to tortuosity of the vessel. Patient is presenting today with chest pressure or palpitations. Patient is noted to be in A. fib with RVR upon arrival Cardiac workup was initiated, Cardizem was ordered for rate control After arrival patient was receiving Cardizem when it was noted that he had an increase in his rate, repeat EKG was concerning for SVT, patient was transferred to the resuscitation bay placed on further cardiac monitoring morphine was ordered for worsening chest pressure and pain. Cardizem drip was increased. During evaluation patient was noted to return to an A. fib with RVR with an irregularly irregular tachycardic rhythm. Cardizem was titrated up to 10 mg per hour. Labs resulted with normal troponin, mildly elevated BNP, electrolytes within normal limits Patient persistently tachycardic amiodarone was ordered, however prior to admi nistration of amiodarone, Patient was noted to convert to a slower rhythm with a rate of 80 appears to be atrial flutter with a 31 block versus sinus with PVCs. Patient care was discussed with cardiology on-call Dr. Watson who agrees with plan for admission with cardiology consult. At this time patient's rate is controlled on 10 of Cardizem if it increases he recommends increasing the Cardizem to 15. Critical Care Time Critical Care Time: Yes Total Critical Care Time: 45 Critical Care Time: Critical Care Time Critical care time was exclusive of separately billable procedures and treating other patients and teaching time. Critical care was necessary to treat or prevent imminent or life-threatening deterioration. Given the critical condition in which the patient arrived, the patient was immediately assessed by myself and the nurse, and cardiac monitoring initiated due to the potential for rapid decompensation of the patient's clinical condition. During the course of the patients stay, I spent a considerable amount of time at the bedside performing serial re-evaluations of the patient's h emodynamic and clinical status because of the recognized potential threat to life or limb in this condition. I then had a chance to review not only all of the available current laboratory and radiographic studies obtained today, but I also reviewed old records available to me at the time. Additionally, any ancillary information available including magnetic resonance imaging coordinator records were reviewed. Sequential vital signs were obtained. Disposition Clinical Impression: Atrial flutter, Atrial fibrillation with RVR, CAD (coronary artery disease), Chest pain Disposition: ADMITTED IP TO THIS HOSP Condition: Serious Referrals: Mary Leon MD [Primary Care Provider] - 1-2 days
[2018-12-21] MEDS ORDERED: DILTIAZEM 125 MG in SODIUM CHLORIDE 0.9% 100 ML IV SCH (05:15)
[2018-12-21 05:45] LABS: HCT 36.8 % (39.0-53.0); HGB 13.3 gm/dL (13.0-17.5); MCH 32.1 pg (25.0-35.0); MCHC 36.1 g/dL (31.0-37.0); MCV 88.9 fL (80.0-100.0); Mean Platelet Volume 6.1; Platelet Count 223 k/uL (150-450); RBC 4.14 m/uL (4.30-5.90); RDW 12.9 % (11.5-15.5)
[2018-12-21] MEDS ORDERED: HEPARIN SODIUM,PORCINE 5,000 UNIT/ML 1 ML VIAL IV PRN (05:46)
[2018-12-21] MEDS ORDERED: HEPARIN SODIUM,PORCINE 5,000 UNIT/ML 1 ML VIAL IV ONE (05:46)
[2018-12-21] MEDS ORDERED: MORPHINE SULFATE 4 MG/ML SYRINGE IVP STA (05:48)
[2018-12-21 05:49] LABS: ALT 32 U/L (21-72); AST 34 U/L (17-59); African American GFR (CKD) >90 (>60 ml/min/1.73 sqM); Albumin 4.6 g/dL (3.5-5.0); Alkaline Phosphatase 56 U/L (38-126); Anion Gap 15 mmol/L; Blood Urea Nitrogen 13 mg/dL (9-20); Calcium 9.7 mg/dL (8.4-10.2); Carbon Dioxide 25 mmol/L (22-30); Chloride 94 mmol/L (98-107); Glucose 135 mg/dL (74-99); Magnesium 1.6 mg/dL (1.6-2.3); Potassium 4.1 mmol/L (3.5-5.1); Sodium 134 mmol/L (137-145); Total Bilirubin 0.5 mg/dL (0.2-1.3); Total Protein 7.7 g/dL (6.3-8.2)
--- NOTE | 2018-12-21 05:49 | XR ---
EXAM: XR Chest, 2 Views CLINICAL HISTORY: ITS.REASON XR Reason: Chest Pain TECHNIQUE: Frontal and lateral views of the chest. COMPARISON: 12/02/18 x-ray IMPRESSION: Unchanged heart size. Redemonstration of right hilar opacity, possibly enlarged pulmonary artery. No consolidation or pleural effusion.
[2018-12-21] MEDS ORDERED: HEPARIN SOD,PORK IN 0.45% NACL 25,000 UNIT in 0.45% NACL 1 250ML.BAG IV SCH (06:00)
[2018-12-21] MEDS ORDERED: MIDAZOLAM 2 MG/2 ML VIAL IV ONE (06:00)
[2018-12-21 06:13] LABS: Partial Thromboplastin Time 28.2 sec (22.0-30.0); Prothrombin Time 10.3 sec (9.0-12.0)
[2018-12-21] MEDS ORDERED: DEXTROSE 5% IN WATER 100 ML with AMIODARONE 150 MG IV ONE (06:25)
[2018-12-21] MEDS ORDERED: AMIODARONE 360 MG in DEXTROSE 5% IN WATER 200 ML IV ONE ×2 (06:35)
[2018-12-21] MEDS ORDERED: NITROGLYCERIN SL TABS 0.4 MG TAB SUBLINGUAL PRN (06:50)
[2018-12-21 07:11] LABS: Band Neutrophils % 1 %; Eosinophils # (M) 0.08 k/uL (0-0.7); Lymphocytes # (M) 1.92 k/uL (1.0-4.8); Monocytes # (M) 0.96 k/uL (0-1.0); Neutrophils % (M) 62 %; Nucleated Red Blood Cells 0 /100 WBC (0-0); Total Cells Counted 100
[2018-12-21 07:12] LABS: Anisocytosis (M) Present; Polychromasia Present
[2018-12-21] MEDS: APIXABAN 5 MG TAB PO SCH ×2 (09:55→20:37)
[2018-12-21 11:08] LABS: Glucose,Whole Blood 136 mg/dL (75-99)
[2018-12-21] MEDS ORDERED: ACETAMINOPHEN TAB 325 MG TAB PO PRN (12:28)
[2018-12-21] MEDS ORDERED: AMIODARONE 300 MG in DEXTROSE 5% IN WATER 250 ML IV SCH ×2 (12:30)
--- NOTE | 2018-12-21 12:40 | P.HPIM ---
History of Present Illness H&P Date: 12/21/18 Chief Complaint: Palpitations and chest pain This is a 78-year-old male patient of Dr. Mendoza. Patient presented with complaints of palpitations and elevated heart rate. Patient was recently diagnosed with atrial fibrillation. Patient reports that this a.m. he felt that his heart was racing. Patient checked his pulse at home and was found to have a rate of 150. Patient presented to ER for further evaluation. Patient recently underwent heart cath on October [address] Chatterjee was found to be heavily calcified of the left circumflex with subtotally occluded mid circumflex and second obtuse marginal branch. At that time angioplasty was unsuccessful patient was referred to [facility]. Patient reports that he is scheduled angioplasty at [facility] for next Wednesday. Patient is maintained on eliquis for his atrial fibrillation which he has been compliant. Additional medical history includes diabetes mellitus, GERD, hyperlipidemia, essential hypertension, pneumonia, hypothyroidism and ex-smoker. Patient was started on Cardizem drip, heart rate decreasing to 40s 50s. Per nursing staff Cardizem drip has been DC'd. Patient resumed on home dose eliquis for anticoagulation. Home medications resumed and cardiology services have been consulted. Chest x-ray completed showing unchanged heart size redemonstration of right hilar E, possibly enlarged pulmonary artery. No consolidation or pleural effusion. EKG completed showing atrial fibrillation with rapid ventricular response. Troponin negative. Magnesium 1.6 TSH 3.290. At this time patient remains in atrial fibrillation but controlled. Patient denies chest pain or shortness breath. Patient denies nausea vomiting or diarrhea. Patient denies urinary burning or frequency Review of Systems Please refer to HPI otherwise unremarkable Past Medical History Past Medical History: Atrial Fibrillation, Atrial Flutter, Coronary Artery Disease (CAD), Chest Pain / Angina, Diabetes Mellitus, GERD/Reflux, Hyperlipidemia, Hypertension, Pneumonia, Syncope, Thyroid Disorder Additional Past Medical History / Comment(s): Pt had cardiac cath [facility] on 10/28/18-unable to stent/went to [facility] and will have atherectomy scheduled for 12/27/18 and was told at that visit that his EKG showed an infarction-age undetermined, NIDDM type II, arthritis in multiple joints, R index finger is trigger finger, chronic L shoulder pain, occasional low back pain, hypothyroid. History of Any Multi-Drug Resistant Organisms: None Reported Past Surgical History: Heart Catheterization, Hernia Repair, Joint Replacement, Orthopedic Surgery Additional Past Surgical History / Comment(s): 10/28/18 cardiac cath, R total reverse shoulder, L knee hemiarthroplasty, bilateral inguinal hernia repairs, colonoscopy, bilateral cataract removals/lens implants. Past Anesthesia/Blood Transfusion Reactions: No Reported Reaction Smoking Status: Former smoker - Past Family History Mother Family Medical History: Diabetes Mellitus, Hypertension Brother(s) Family Medical History: CVA/TIA, Myocardial Infarction (DC) Additional Family Medical History / Comment(s): Pt had a brother who from a DC and CVA at the age of 55yr. Father Family Medical History: Hypertension Medications and Allergies Home Medications Medication Instructions Recorded Confirmed Type Acetaminophen [Tylenol] 325 - 650 mg PO Q6HR PRN 02/15/17 12/21/18 History Atenolol 25 mg PO BID 02/15/17 12/21/18 History Calcium Carbonate/Vitamin D3 1 cap PO DAILY 02/15/17 12/21/18 History [Calcium 600-Vit D3 500 Softgel] Levothyroxine Sodium [Levoxyl] 100 mcg PO DAILY 02/15/17 12/21/18 History [place]-3 Fatty Acids/Fish Oil [Fish 1 cap PO DAILY 02/15/17 12/21/18 History Oil 1,000 mg Softgel] metFORMIN HCL [Glucophage] 1,000 mg PO BID 02/15/17 12/21/18 History Clopidogrel [Plavix] 75 mg PO DAILY #90 tab 10/29/18 12/21/18 Rx Hydrochlorothiazide [Hydrodiuril] 25 mg PO DAILY #90 tab 10/29/18 12/21/18 Rx Isosorbide Mononitrate ER [Imdur] 60 mg PO DAILY #30 tab.er.24h 10/29/18 12/21/18 Rx Losartan [Cozaar] 100 mg PO DAILY #90 tab 10/29/18 12/21/18 Rx Atorvastatin [Lipitor] 40 mg PO HS 12/02/18 12/21/18 History Vit C/E/Zn/Coppr/Lutein/Zeaxan 1 cap PO BID 12/02/18 12/21/18 History [Preservision Areds 2 Softgel] Apixaban [Eliquis] 5 mg PO BID tab 12/04/18 12/21/18 Rx amLODIPine [Norvasc] 10 mg PO DAILY tab 12/04/18 12/21/18 Rx cloNIDine HCL [Catapres] 0.1 mg PO TID tab 12/04/18 12/21/18 Rx Allergies Allergy/AdvReac Type Severity Reaction Status Date / Time ibuprofen AdvReac PASSED OUT Verified 12/21/18 04:42 Physical Exam Vitals: Vital Signs Temp Pulse Pulse Resp BP BP Pulse Ox 12/21/18 09:20 98.0 F 81 18 156/86 98 12/21/18 08:53 82 18 138/72 98 12/21/18 08:29 81 16 150/81 98 12/21/18 08:00 81 12/21/18 07:23 97.7 F 82 18 98 12/21/18 06:55 80 15 133/75 98 12/21/18 06:50 80 16 137/73 99 12/21/18 06:45 80 16 128/72 99 12/21/18 06:40 80 16 137/77 98 12/21/18 06:35 80 15 137/74 99 12/21/18 06:30 112 H 16 137/79 99 12/21/18 06:25 132 H 18 123/108 98 12/21/18 06:20 154 H 19 151/90 99 12/21/18 06:00 148 H 150/113 99 12/21/18 05:40 154 H 148/104 99 12/21/18 05:32 152 H 19 148/104 100 12/21/18 05:30 128 H 153/104 100 12/21/18 04:42 130 H 12/21/18 04:39 98.3 F 128 H 18 157/81 99 Intake and Output 12/20/18 12/21/18 12/21/18 22:59 06:59 14:59 Intake Total 1.917 18 Balance 1.917 18 Intake: Intake, IV Titration 1.917 18 Amount Diltiazem 125 mg In 1.917 18 Sodium Chloride 0.9% 100 ml @ Per Protocol IV .Q0M [facility] Rx#:[id number] Other: Weight 79.379 kg Head normocephalic Neck supple Lungs clear to auscultation bilaterally no wheezing or crackles Heart irregular rate and rhythm Abdomen is soft nontender nondistended positive bowel sounds no hepatosplenomegaly Extremities no edema Neuro alert and orientated to 3 Results CBC & Chem 7: 12/21/18 05:00 12/21/18 05:00 Labs: Abnormal Lab Results - Last 24 Hours (Table) 12/21/18 12/21/18 12/21/18 Range/Units 05:00 05:00 11:07 RBC 4.14 L (4.30-5.90) m/uL Hct 36.8 L (39.0-53.0) % Sodium 134 L (137-145) mmol/L Chloride 94 L (98-107) mmol/L Creatinine 0.60 L (0.66-1.25) mg/dL Glucose 135 H (74-99) mg/dL POC Glucose (mg/dL) 136 H (75-99) mg/dL Thrombosis Risk Factor Assmnt - Choose All That Apply Any of the Below Risk Factors Present?: Yes Each Factor Represents 1 point: Obesity (BMI >25) Other Risk Factors: Yes Each Risk Factor Represents 3 Points: Age 75 years or older Other congenital or acquired thrombophilia - If yes, enter type in comment: No Thrombosis Risk Factor Assessment Total Risk Factor Score: 4 Thrombosis Risk Factor Assessment Level: Moderate Risk Assessment and Plan Assessment: 1. Atrial fibrillation with rapid ventricular response. Patient is maintained on eliquis for anticoagulation. Cardiology services have been consulted. Patient was initially started on Cardizem drip. Cardizem drip DC'd. home meds resumed 2. Known coronary artery disease. Patient underwent heart cath in October of Dr. Blanca was found that patient had heavily calcified left circumflex which was subtotally occluded mid circumflex and second obtuse marginal branch. At that time angioplasty was attempted but unsuccessful due to severe calcification patient was referred to [facility]. Patient reports he is scheduled angioplasty at [facility] for next Wednesday. 3. Proximal atrial fibrillation. Patient was recently diagnosed 4. Essential hypertension 5. Hyperlipidemia. Statin resumed 6. History of diabetes mellitus type 2. Metformin on hold. sliding scale cover age ordered DVT prophylaxis eliquis. GI prophylaxis Pepcid Time with Patient: Greater than 30 (Greater than 60% of the total time spent in counseling and coordination of care. I performed an examination of the patient and discussed their management with the Nurse Practitioner. I have reviewed the Nurse Practitioner's notes and agree with the documented findings and plan of care)
[2018-12-21] MEDS: INSULIN ASPART (NovoLOG) 100 UNIT/ML VIAL SQ SCH ×3 (15:00→20:59)
[2018-12-21] MEDS: cloNIDine HCL 0.1 MG TAB PO SCH ×2 (16:01→20:37)
[2018-12-21] MEDS ORDERED: LOSARTAN 50 MG TAB PO STA (16:16)
[2018-12-21 16:38] LABS: Glucose,Whole Blood 129 mg/dL (75-99)
[2018-12-21] MEDS: AMIODARONE 200 MG TAB PO SCH (20:36)
[2018-12-21] MEDS: ATENOLOL 25 MG TAB PO SCH (20:37)
[2018-12-21 20:53] LABS: Glucose,Whole Blood 182 mg/dL (75-99)
[2018-12-21] MEDS ORDERED: ATORVASTATIN 40 MG TAB PO SCH (21:00)
--- NOTE | 2018-12-21 23:05 | CONS ---
CONSULTATION DATE OF SERVICE: 12/21/2018 This is a 78-year-old gentleman, a patient of Dr. Rojas, who in October of this year had an attempted PCI of a subtotally occluded circumflex which was unsuccessful, and he was referred for BREAK UP WORKER intervention to [facility] and his procedure is scheduled for next Wednesday. In the interim between his October PCI attempt and now, he was hospitalized on December 03 with an episode of paroxysmal atrial fibrillation and spontaneously converted to sinus rhythm. He was placed on Eliquis 5 mg b.i.d. and he was discharged. He has gone to [facility] and has seen the painting trades worker for his BREAK UP WORKER and the procedure is scheduled for next Wednesday with the understanding he should hold Eliquis for 48 hours. However, he presented to the hospital today mainly because of an episode of chest pressure and palpitations, and he was found to be in atrial fibrillation at a rapid rate. He received intravenous Cardizem and converted to sinus rhythm and is resting comfortably at the time of my evaluation without symptoms. His previous episode of atrial fibrillation on December 03 was also associated with similar symptoms of chest tightness. He is resting comfortably without symptoms. PAST MEDICAL HISTORY: 1. CAD, preserved LV systolic function, unsuccessful PCI of mid circumflex, going for a BREAK UP WORKER intervention next Wednesday. 2. Hypertension. 3. Hyperlipidemia. 4. Recent diagnosis of atrial fibrillation which appears to be paroxysmal with a recurrent episode today. He is status post shoulder surgery and knee arthroplasty and also bilateral inguinal hernia repair. ALLERGIES: IBUPROFEN. MEDICATIONS: Medications include: 1. Plavix 75 mg daily. 2. Hydrochlorothiazide 25 mg daily. 3. Imdur 60 mg daily. 4. Losartan 100 mg daily. 5. Eliquis 5 mg b.i.d. 6. Amlodipine 10 mg daily. 7. Catapres 0.1 mg t.i.d. 8. Atenolol 25 mg b.i.d. 9. Levothyroxine 100 mcg daily. 10.Metformin 1000 mg b.i.d. PHYSICAL EXAMINATION: Blood pressure is 148/70. Pulse rate is about 70, regular. HEENT unremarkable. Fundus was not examined by me. Neck is supple. There is no JVD. I do not hear a carotid bruit. Heart exam reveals S1, S2 heard normally. Heart rhythm is regular. There is a short systolic murmur at the base and left lower sternal border. Lungs revealed decent air entry. Abdomen is soft, nontender. Lower extremities reveal normal pulses. No edema. Central nervous system is grossly within normal limits. IMPRESSION: 1. Paroxysmal atrial fibrillation with chest pain in a patient with known coronary artery disease. 2. Coronary artery disease with mid circumflex stenosis, for which he is going for a BREAK UP WORKER intervention at [facility] next Wednesday. 3. Hypertension. 4. Type 2 diabetes mellitus. 5. Hyperlipidemia. 6. History of recent hospitalization with new-onset atrial fibrillation, and he has been placed on Eliquis 5 mg b.i.d. RECOMMENDATIONS: I am recommending that we start him on amiodarone 200 mg b.i.d. and give him his losartan now, for blood pressure is slightly elevated. Continue all his other medications as before. No intervention is necessary. If he remains stable, he can be discharged tomorrow on amiodarone plus his other medicines. I discussed my thoughts in detail with the patient and his . Thank you very much for the consult. MMODL / IJN: [id number] /
[2018-12-22 06:17] LABS: Glucose,Whole Blood 147 mg/dL (75-99)
[2018-12-22] MEDS ORDERED: LEVOTHYROXINE 100 MCG TAB PO SCH (06:30)
[2018-12-22 06:36] LABS: Basophils % (A) 0 %; Eosinophils # (A) 0.2 k/uL (0-0.7); Eosinophils % (A) 3 %; HCT 37.5 % (39.0-53.0); HGB 12.9 gm/dL (13.0-17.5); Lymphocytes # (A) 1.2 k/uL (1.0-4.8); Lymphocytes % (A) 18 %; MCH 32.5 pg (25.0-35.0); MCHC 34.4 g/dL (31.0-37.0); Mean Platelet Volume 6.7; Monocytes # (A) 0.4 k/uL (0-1.0); Monocytes % (A) 7 %; Neutrophils # (A) 4.4 k/uL (1.3-7.7); Neutrophils % (A) 68 %; Platelet Count 180 k/uL (150-450); RBC 3.97 m/uL (4.30-5.90); RDW 13.1 % (11.5-15.5); WBC 6.4 k/uL (3.8-10.6)
[2018-12-22 06:41] LABS: MCV 94.5 fL (80.0-100.0)
[2018-12-22] MEDS: INSULIN ASPART (NovoLOG) 100 UNIT/ML VIAL SQ SCH ×2 (06:43→12:24)
[2018-12-22 06:45] LABS: ALT 31 U/L (21-72); AST 25 U/L (17-59); African American GFR (CKD) >90 (>60 ml/min/1.73 sqM); Albumin 4.1 g/dL (3.5-5.0); Alkaline Phosphatase 53 U/L (38-126); Anion Gap 11 mmol/L; Blood Urea Nitrogen 13 mg/dL (9-20); Carbon Dioxide 26 mmol/L (22-30); Chloride 98 mmol/L (98-107); Cholesterol 86 mg/dL (<200); Glucose 149 mg/dL (74-99); HDL Cholesterol 30 mg/dL (40-60); LDL Cholesterol,Calculated 36 mg/dL (0-99); Potassium 3.9 mmol/L (3.5-5.1); Sodium 135 mmol/L (137-145); Total Bilirubin 0.5 mg/dL (0.2-1.3); Triglycerides 102 mg/dL (<150)
[2018-12-22 08:32] VITALS: RESP 16
[2018-12-22] MEDS: APIXABAN 5 MG TAB PO SCH (08:50)
[2018-12-22] MEDS: cloNIDine HCL 0.1 MG TAB PO SCH ×2 (08:50→15:25)
[2018-12-22] MEDS: ATENOLOL 25 MG TAB PO SCH (08:50)
[2018-12-22] MEDS: AMIODARONE 200 MG TAB PO SCH (08:50)
[2018-12-22] MEDS ORDERED: LOSARTAN 50 MG TAB PO SCH (09:00)
[2018-12-22] MEDS ORDERED: CALCIUM CARB-VIT D 500MG-200UN 1 EACH TAB PO SCH (09:00)
[2018-12-22] MEDS ORDERED: amLODIPine 10 MG TAB PO SCH (09:00)
[2018-12-22] MEDS ORDERED: ASPIRIN 325 MG TAB PO SCH (09:00)
[2018-12-22] MEDS ORDERED: CLOPIDOGREL 75 MG TAB PO SCH (09:00)
[2018-12-22] MEDS ORDERED: ISOSORBIDE MONONITRATE ER 60 MG TAB.ER.24H PO SCH (09:00)
[2018-12-22] MEDS ORDERED: HYDROCHLOROTHIAZIDE 25 MG TAB PO SCH (09:00)
[2018-12-22 11:39] VITALS: BP 151/80; PULSE 70; TEMP 97.8
[2018-12-22 11:40] LABS: Glucose,Whole Blood 174 mg/dL (75-99)
--- NOTE | 2018-12-22 14:49 | P.DS ---
Providers Date of admission: 12/21/18 06:50 Expected date of discharge: 12/22/18 Attending physician: Steven Spring Consults: 12/21/18 06:50 Consult Physician Urgent Consulting Provider: Edwar Watson Consult Reason/Comments: rvr, known CAD Do you want consulting provider notified?: Already Contacted Primary care physician: Mary Leon [facility] Hospital Course: Discharge diagnosis 1. Atrial fibrillation with rapid ventricular response. Patient is maintained on eliquis for anticoagulation. Cardiology services have been consulted. Patient was initially started on Cardizem drip. Cardizem drip DC'd. home meds resumed. Cardiology has added amiodarone. Patient has been cleared for discharge from cardiology standpoint. Heart rate controlled 2. Known coronary artery disease. Patient underwent heart cath in October Dr. Blanca was found that patient had heavily calcified left circumflex which was subtotally occluded mid circumflex and second obtuse marginal branch. At that time angioplasty was attempted but unsuccessful due to severe calcification patient was referred to [facility]. Patient reports he is scheduled angioplasty at [facility] for next Wednesday. [facility] 3. Proximal atrial fibrillation. Patient was recently diagnosed 4. Essential hypertension 5. Hyperlipidemia. Statin resumed 6. History of diabetes mellitus type 2. Metformin on hold. sliding scale coverage ordered Hospital course This is a 78-year-old male patient of Dr. Mendoza. Patient presented with complaints of palpitations and elevated heart rate. Patient was recently diagnosed with atrial fibrillation. Patient reports that this a.m. he felt that his heart was racing. Patient checked his pulse at home and was found to have a rate of 150. Patient presented to ER for further evaluation. Patient recently underwent heart cath on October [address] Chatterjee was found to be heavily patricia cified of the left circumflex with subtotally occluded mid circumflex and second obtuse marginal branch. At that time angioplasty was unsuccessful patient was referred to [facility]. Patient reports that he is scheduled angioplasty at [facility] for next Wednesday. Patient is maintained on eliquis for his atrial fibrillation which he has been compliant. Additional medical history includes diabetes mellitus, GERD, hyperlipidemia, essential hypertension, pneumonia, hypothyroidism and ex-smoker. Patient was started on Cardizem drip, heart rate decreasing to 40s 50s. Per nursing staff Cardizem drip has been DC'd. Patient resumed on home dose eliquis for anticoagulation. Home medications resumed and cardiology services have been consulted. Chest x-ray completed showing unchanged heart size redemonstration of right hilar E, possibly enlarged pulmonary artery. No consolidation or pleural effusion. EKG completed showing atrial fibrillation with rapid ventricular response. Troponin negative. Magnesium 1.6 TSH 3.290. At this time patient remains in atrial fibrillation but controlled. Patient denies chest pain or shortness breath. Patient denies nausea vomiting or diarrhea. Patient denies urinary burning or frequency On 12/23/2018 patient alert and oriented 3. Patient did have elevated blood pressure this a.m. home meds given amiodarone added per cardiology blood pressur e has improved. Patient has been cleared for discharge from cardiology standpoint. Patient will be DC'd on new medication of amiodarone. Patient to follow with Fredy Gupta for planned PCI seizure next Wednesday. Patient follow with PCP and cardiology services for further management. At this time patient denies chest pain or shortness of breath. Patient denies nausea vomiting or diarrhea. Patient denies any urinary burning or frequency. I performed an examination of the patient and discussed their management with the Nurse Practitioner. I have reviewed the Nurse Practitioner's notes and a gree with the documented findings and plan of care Patient Condition at Discharge: Stable Plan - Discharge Summary Discharge Rx Participant: No New Discharge Prescriptions: New Amiodarone [Cordarone] 200 mg PO BID 30 Days #60 tab Continue Levothyroxine Sodium [Levoxyl] 100 mcg PO DAILY Atenolol 25 mg PO BID Acetaminophen [Tylenol] 325 - 650 mg PO Q6HR PRN PRN Reason: Pain Calcium Carbonate/Vitamin D3 [Calcium 600-Vit D3 500 Softgel] 1 cap PO DAILY metFORMIN HCL [Glucophage] 1,000 mg PO BID [place]-3 Fatty Acids/Fish Oil [Fish Oil 1,000 mg Softgel] 1 cap PO DAILY Losartan [Cozaar] 100 mg PO DAILY #90 tab Hydrochlorothiazide [Hydrodiuril] 25 mg PO DAILY #90 tab Isosorbide Mononitrate ER [Imdur] 60 mg PO DAILY #30 tab.er.24h Clopidogrel [Plavix] 75 mg PO DAILY #90 tab Atorvastatin [Lipitor] 40 mg PO HS Vit C/E/Zn/Coppr/Lutein/Zeaxan [Preservision Areds 2 Softgel] 1 cap PO BID cloNIDine HCL [Catapres] 0.1 mg PO TID tab Apixaban [Eliquis] 5 mg PO BID tab amLODIPine [Norvasc] 10 mg PO DAILY tab Discharge Medication List Acetaminophen [Tylenol] 325 - 650 mg PO Q6HR PRN 02/15/17 [History] Atenolol 25 mg PO BID 02/15/17 [History] Calcium Carbonate/Vitamin D3 [Calcium 600-Vit D3 500 Softgel] 1 cap PO DAILY 02/15/17 [History] Levothyroxine Sodium [Levoxyl] 100 mcg PO DAILY 02/15/17 [History] [place]-3 Fatty Acids/Fish Oil [Fish Oil 1,000 mg Softgel] 1 cap PO DAILY 02/15/17 [History] metFORMIN HCL [Glucophage] 1,000 mg PO BID 02/15/17 [History] Clopidogrel [Plavix] 75 mg PO DAILY #90 tab 10/29/18 [Rx] Hydrochlorothiazide [Hydrodiuril] 25 mg PO DAILY #90 tab 10/29/18 [Rx] Isosorbide Mononitrate ER [Imdur] 60 mg PO DAILY #30 tab.er.24h 10/29/18 [Rx] Losartan [Cozaar] 100 mg PO DAILY #90 tab 10/29/18 [Rx] Atorvastatin [Lipitor] 40 mg PO HS 12/02/18 [History] Vit C/E/Zn/Coppr/Lutein/Zeaxan [Preservision Areds 2 Softgel] 1 cap PO BID 12/02/18 [History] Apixaban [Eliquis] 5 mg PO BID tab 12/04/18 [Rx] amLODIPine [Norvasc] 10 mg PO DAILY tab 12/04/18 [Rx] cloNIDine HCL [Catapres] 0.1 mg PO TID tab 12/04/18 [Rx] Amiodarone [Cordarone] 200 mg PO BID 30 Days #60 tab 12/22/18 [Rx] Follow up Appointment(s)/Referral(s): Anirudh Fragoso MD [STAFF PHYSICIAN] - 1 Week Mary Leon MD [Primary Care Provider] - 1-2 days Patient Instructions/Handouts: A-fib (Atrial Fibrillation) (DC) Activity/Diet/Wound Care/Special Instructions: Activity as tolerated Diet heart healthy Discharge Disposition: HOME SELF-CARE
--- NOTE | 2018-12-22 14:59 | P.PN ---
Subjective Progress Note Date: 12/22/18 This is a 78-year-old gentleman who presented to the hospital with symptoms of palpitations and elevated heart rate. He was recently diagnosed with atrial fibrillation. On presentation here patient was found to be in atrial fibrillation with a heart rate of 150. He was initiated yesterday on a miodarone by Dr. Gino Fragoso. Patient's additional medical history includes diabetes, GERD, hyperlipidemia, hypertension, hypothyroidism, and prior history of smoking. The patient was seen and examined today, this morning's blood pressure was significantly elevated however the patient had not yet received any of his medications nor had he received than yesterday. Subsequently at 11:30 this morning's blood pressure was 150/80 with a heart rate in the 70s patient is scheduled to undergo BALANCE TRUING INSPECTOR at [facility] on Wednesday of this week. Objective - Vital Signs Vital signs: Vital Signs Temp 97.8 F 12/22/18 11:37 Pulse 70 12/22/18 11:37 Resp 16 12/22/18 11:37 BP 151/80 12/22/18 11:37 Pulse Ox 98 12/22/18 11:37 Intake & Output 12/21/18 12/22/18 12/22/18 18:59 06:59 18:59 Intake Total 258 480 Output Total 1600 800 900 Balance -1342 -800 -420 Weight 79.2 kg Intake: Intake, IV Titration 18 Amount Diltiazem 125 mg In 18 Sodium Chloride 0.9% 100 ml @ Per Protocol IV .Q0M [facility] Rx#:[id number] Oral 240 480 Output: Urine 1600 800 900 Other: Voiding Method Toilet Toilet Urinal - Exam PHYSICAL EXAMINATION: GENERAL: 78-year-old gentleman in no acute distress at the time of my examination HEENT: Head is atraumatic, normocephalic. Pupils equal, round. Sclera anicteric. Conjunctiva are clear. Mucous membranes of the mouth are moist. Neck is supple. There is no elevated jugular venous pressure. No carotid bruit is heard. HEART EXAMINATION: Heart S1 S2 1 systolic murmur is heard CHEST EXAMINATION: Lungs are clear to auscultation and precussion. No chest wall tenderness is noted on palpation or with deep breathing. ABDOMEN: Soft, nontender. Bowel sounds are heard. No organomegaly noted. EXTREMITIES: 2+ peripheral pulses with no evidence of peripheral edema and no calf tenderness noted. NEUROLOGIC patient is awake, alert and oriented 3 . . - Labs CBC & Chem 7: 12/22/18 06:12 12/22/18 06:12 Labs: Abnormal Lab Results - Last 24 Hours (Table) 12/21/18 12/21/18 12/22/18 Range/Units 16:37 20:51 06:12 RBC (4.30-5.90) m/uL Hgb (13.0-17.5) gm/dL Hct (39.0-53.0) % Sodium 135 L (137-145) mmol/L Creatinine 0.61 L (0.66-1.25) mg/dL Glucose 149 H (74-99) mg/dL POC Glucose (mg/dL) 129 H 182 H (75-99) mg/dL HDL Cholesterol 30 L (40-60) mg/dL 12/22/18 12/22/18 12/22/18 Range/Units 06:12 06:15 11:38 RBC 3.97 L (4.30-5.90) m/uL Hgb 12.9 L (13.0-17.5) gm/dL Hct 37.5 L (39.0-53.0) % Sodium (137-145) mmol/L Creatinine (0.66-1.25) mg/dL Glucose (74-99) mg/dL POC Glucose (mg/dL) 147 H 174 H (75-99) mg/dL HDL Cholesterol (40-60) mg/dL Assessment and Plan Plan: Assessment and plan #1 paroxysmal atrial fibrillation #2 coronary artery disease with mid circumflex stenosis for which the patient is undergoing BALANCE TRUING INSPECTOR intervention at [facility] on Wednesday #3 hypertension #4 diabetes #5 hyperlipidemia Plan From cardiology's perspective, patient may be able to be discharged home on amiodarone along with the rest of his current medications. He will follow-up for his BALANCE TRUING INSPECTOR procedure at [facility] on Wednesday. DNP note has been reviewed, I agree with a documented findings and plan of care. Patient was seen and examined.
== END 2018-12-22 16:08 | disposition home or self-care (01) | DRG 310 ==
LOC: EC 04:36 → 3SCARD 06:50
PROVIDERS: ADMIT Internal Medicine; ATTEND Internal Medicine
DX: I48.0 Paroxysmal atrial fibrillation (principal); E03.9 Hypothyroidism, unspecified; E11.9 Type 2 diabetes mellitus without complications; E78.5 Hyperlipidemia, unspecified; I10 Essential (primary) hypertension; I25.10 Atherosclerotic heart disease of native coronary artery without angina pectoris; I48.92 Unspecified atrial flutter; K21.9 Gastro-esophageal reflux disease without esophagitis; Z79.01 Long term (current) use of anticoagulants; Z79.02 Long term (current) use of antithrombotics/antiplatelets; Z79.84 Long term (current) use of oral hypoglycemic drugs; Z79.890 Hormone replacement therapy; Z79.899 Other long term (current) drug therapy; Z82.3 Family history of stroke; Z82.49 Family history of ischemic heart disease and other diseases of the circulatory system; Z83.3 Family history of diabetes mellitus; Z87.891 Personal history of nicotine dependence; Z98.42 Cataract extraction status, left eye; Z98.41 Cataract extraction status, right eye; Z96.1 Presence of intraocular lens; Z96.611 Presence of right artificial shoulder joint; Z96.652 Presence of left artificial knee joint; J44.9 Chronic obstructive pulmonary disease, unspecified; Z87.01 Personal history of pneumonia (recurrent)
CPT/HCPCS: 36415; 71046; 80053; 80061; 83735; 83880; 84443; 84484; 85025; 85610; 85730; 96365; 96366; 96368; 96375; 96376; 99291

== ENCOUNTER → 2019-03-01 | Outpatient (CLI) | payer MEDICARE ==
[2019-03-01 17:14] LABS: African American GFR (CKD) 98.5 (60.0-200.0); Albumin 4.6 g/dL (3.80-4.90); Albumin/Globulin Ratio 2.3 (1.60-3.17); Anion Gap 8.6 mmol/L (4.00-12.00); BUN/Creat Ratio 18.75 Ratio (12.00-20.00); Calcium 9.2 mg/dL (8.7-10.3); Carbon Dioxide 29.4 mmol/L (21.6-31.8); Chol/HDL Ratio 2.77; LDL Cholesterol,Calculated 26.8 mg/dL (0.0-131.0); Potassium 4.1 mmol/L (3.5-5.5); Total Bilirubin 0.5 mg/dL (0.2-1.2); Total Protein 6.6 g/dL (6.2-8.2); VLDL Calculation 35.2 mg/dL (5.00-40.00)
== END | disposition home or self-care (01) ==
LOC: LABWHC1 09:22
PROVIDERS: ATTEND Nurse Practitioner Adult Health
DX: E78.2 Mixed hyperlipidemia (principal); I48.0 Paroxysmal atrial fibrillation
CPT/HCPCS: 36415; 80053; 80061; 84443

== ENCOUNTER → 2019-10-23 | Outpatient (CLI) | payer MEDICARE ==
[2019-10-23 17:15] LABS: African American GFR (CKD) 97.8 (60.0-200.0); Albumin 4.3 g/dL (3.80-4.90); Albumin/Globulin Ratio 1.95 (1.60-3.17); Anion Gap 6.7 mmol/L (4.00-12.00); BUN/Creat Ratio 16.25 Ratio (12.00-20.00); Carbon Dioxide 28.3 mmol/L (21.6-31.8); Chol/HDL Ratio 2.66; Globulin 2.2 g/dL (1.6-3.3); LDL Cholesterol,Calculated 28.4 mg/dL (0.0-131.0); Non-African American GFR(CKD) 84.4 (60.0-200.0); Total Bilirubin 0.5 mg/dL (0.3-1.2); Total Protein 6.5 g/dL (6.2-8.2); VLDL Calculation 29.6 mg/dL (5.00-40.00)
== END | disposition home or self-care (01) ==
LOC: LABWHC1 09:08
PROVIDERS: ATTEND Internal Medicine Interventional Cardiology
DX: I48.0 Paroxysmal atrial fibrillation (principal); E78.2 Mixed hyperlipidemia
CPT/HCPCS: 36415; 80053; 80061; 84443

== ENCOUNTER → 2019-11-01 | Outpatient (CLI) | payer MEDICARE ==
[2019-11-01 17:01] LABS: T4, Free (Free Thyroxine) 1.9 ng/dL (0.80-1.80)
[2019-11-01 17:44] LABS: African American GFR (CKD) 97.8 (60.0-200.0); Albumin 4.5 g/dL (3.80-4.90); Albumin/Globulin Ratio 1.96 (1.60-3.17); Anion Gap 10.4 mmol/L (4.00-12.00); BUN/Creat Ratio 17.5 Ratio (12.00-20.00); Calcium 9.2 mg/dL (8.7-10.3); Carbon Dioxide 26.6 mmol/L (21.6-31.8); Chol/HDL Ratio 3.12; Globulin 2.3 g/dL (1.6-3.3); LDL Cholesterol,Calculated 24.8 mg/dL (0.0-131.0); Non-African American GFR(CKD) 84.4 (60.0-200.0); Potassium 3.8 mmol/L (3.5-5.5); Total Bilirubin 0.7 mg/dL (0.2-1.2); Total Protein 6.8 g/dL (6.2-8.2); VLDL Calculation 45.2 mg/dL (5.00-40.00)
== END | disposition home or self-care (01) ==
LOC: LABWHC1 09:10
PROVIDERS: ATTEND Nurse Practitioner Adult Health
DX: E78.2 Mixed hyperlipidemia (principal); E03.2 Hypothyroidism due to medicaments and other exogenous substances
CPT/HCPCS: 36415; 80053; 80061; 84439; 84443

== ENCOUNTER → 2019-12-19 | Outpatient (CLI) | payer MEDICARE ==
[2019-12-19 21:26] LABS: African American GFR (CKD) 97.8 (60.0-200.0); Albumin 4.5 g/dL (3.80-4.90); Albumin/Globulin Ratio 2.37 (1.60-3.17); BUN/Creat Ratio 17.5 Ratio (12.00-20.00); Calcium 9.1 mg/dL (8.7-10.3); Chol/HDL Ratio 3.41; Globulin 1.9 g/dL (1.6-3.3); LDL Cholesterol,Calculated 31.4 mg/dL (0.0-131.0); Non-African American GFR(CKD) 84.4 (60.0-200.0); Potassium 4.1 mmol/L (3.5-5.5); Total Bilirubin 0.8 mg/dL (0.2-1.2); Total Protein 6.4 g/dL (6.2-8.2); VLDL Calculation 45.6 mg/dL (5.00-40.00)
== END | disposition home or self-care (01) ==
LOC: LABWHC1 09:47
PROVIDERS: ATTEND Internal Medicine Interventional Cardiology
DX: E78.2 Mixed hyperlipidemia (principal)
CPT/HCPCS: 36415; 80053; 80061

== ENCOUNTER → 2020-01-31 | Outpatient (CLI) | payer MEDICARE ==
[2020-01-31 15:40] LABS: HCT 37.2 % (39.0-53.0); HGB 12.9 gm/dL (13.0-17.5); MCH 32.5 pg (25.0-35.0); MCHC 34.6 g/dL (31.0-37.0); MCV 93.9 fL (80.0-100.0); Mean Platelet Volume 6.9; Platelet Count 213 k/uL (150-450); RBC 3.97 m/uL (4.30-5.90); RDW 12.2 % (11.5-15.5); WBC 7.3 k/uL (3.8-10.6)
[2020-01-31 15:49] LABS: African American GFR (CKD) >90 (>60 ml/min/1.73 sqM); Anion Gap 7 mmol/L; Blood Urea Nitrogen 16 mg/dL (9-20); Carbon Dioxide 31 mmol/L (22-30); Chloride 92 mmol/L (98-107); Non-African American GFR(CKD) 88 (>60 ml/min/1.73 sqM); Potassium 4.7 mmol/L (3.5-5.1); Sodium 130 mmol/L (137-145)
== END | disposition home or self-care (01) ==
LOC: LABPAT 14:33
PROVIDERS: ATTEND Internal Medicine Interventional Cardiology
DX: Z01.818 Encounter for other preprocedural examination (principal); I25.10 Atherosclerotic heart disease of native coronary artery without angina pectoris
CPT/HCPCS: 36415; 80051; 82565; 84520; 85027

== ENCOUNTER 2020-02-07 07:38 | Day surgery (SDC) | payer MEDICARE ==
[2020-02-05 15:45] VITALS: BMI 27.3
[~2020-02-07 07:38] MED LIST: ALPRAZolam 0.25 MG TAB PO PRN; ALPRAZolam 0.5 MG TAB PO PRN; ASPIRIN 325 MG TAB PO STA; ATORVASTATIN 80 MG TAB PO STA; NITROGLYCERIN SL TABS 0.4 MG TAB SUBLINGUAL PRN; SODIUM CHLORIDE 0.9% 1,000 ML in EMPTY BAG 1 BAG IV ONE
[2020-02-07] MEDS ORDERED: SODIUM CHLORIDE 0.9% 1,000 ML IV ONE (08:15)
[2020-02-07 08:32] LABS: Glucose,Whole Blood 150 mg/dL (75-99)
[2020-02-07] MEDS ORDERED: HEPARIN SODIUM 1,000 UN/ML (10ML VL) ONE ×2 (08:33→10:45)
[2020-02-07] MEDS ORDERED: fentaNYL (PF) 50 MCG/ML 2 ML AMP ONE (08:33)
[2020-02-07 08:36] VITALS: RESP 16; TEMP 98
[2020-02-07] MEDS ORDERED: fentaNYL (PF) 50 MCG/ML 2 ML AMP IV ONE (09:07)
[2020-02-07] MEDS ORDERED: LIDOCAINE 1% INJ 10MG/ML (20 ML MDV) SQ ONE (09:11)
[2020-02-07] MEDS ORDERED: VERAPAMIL SYRINGE (5 MG/10 ML) INTRAARTER ONE (09:12)
[2020-02-07] MEDS ORDERED: MIDAZOLAM 2 MG/2 ML VIAL IVP ONE (09:14)
[2020-02-07] MEDS ORDERED: HEPARIN SODIUM 1,000 UN/ML (10ML VL) IV ONE (09:17)
[2020-02-07] MEDS ORDERED: IOPAMIDOL-370 125ML BTL INJ ONE (09:26)
[2020-02-07] MEDS ORDERED: RX INFO: IV CONTRAST WAS GIVEN 1 EACH MISC MISCELLANE PRN (09:36)
[2020-02-07] MEDS ORDERED: SODIUM CHLORIDE 0.9% 1,000 ML IV SCH (09:45)
--- NOTE | 2020-02-07 10:21 | LTR ---
DATE OF SERVICE: 02/07/2020 RE: Calinqamar Ariel Dear Dr. Leon: I had the pleasure to perform cardiac catheterization on Mr. Bhatia at [facility] on February 07, 2020 and a full copy of the procedure note will be forwarded to you. In brief, he was found to have no evidence of significant restenosis in the stented segment of the left circumflex with mild to moderate in-stent restenosis with a preserved ventricular size and systolic function. Based on those findings, I recommend continue medical therapy with aggressive risk modifications being initiated and thank you again for allowing me to participate in this patient's care. Please feel free to call for any questions. Sincerely yours, MD ÁNGELA Cheatham / JARRED: [id number] /
--- NOTE | 2020-02-07 10:21 | CC ---
CARDIAC CATHETERIZATION REPORT Mr. Bhatia is an 79-year-old male with a known history of coronary artery disease, status post complex angioplasty and stenting of the left circumflex done in December of last year who is scheduled to undergo back surgery, underwent stress test that revealed evidence of inducible ischemia involving the lateral wall. In view of that, recommendation made regarding cardiac catheterization. The procedures, risks, and complications were discussed with the patient who is in full understanding and agreement. 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 Using Xylocaine anesthesia and Seldinger technique, a 6-Nigerien sheath was introduced in the right radial artery. Selective right and left coronary angiography performed using 5-Nigerien 3.5 bend right and left Rox catheter, multiple views of the coronary artery including hemiaxial views were obtained. Following that, a 5-Nigerien tight pigtail catheter was introduced in the left ventricle and a 30-degree BOSE view of the left ventricle was obtained. Following that, catheter and sheath were removed. Hemostasis was obtained with deployment of a TR band. There was no immediate complication. Patient is returned to his room in stable condition. Of note, patient received 4000 units of intravenous heparin as well as intra-arterial verapamil. FINDINGS: FLUOROSCOPY: There was calcification involving the left main and the left anterior descending artery and left circumflex. LEFT MAIN: This is a short size vessel, bifurcating into left circumflex, left anterior descending artery. Left main coronary artery has no evidence of high-grade stenosis. LEFT ANTERIOR DESCENDING ARTERY: This is a large-sized vessel, reaching toward the apex, giving rise to 3 diagonal branches of small to moderate caliber. The left of the second diagonal branch has a 40% to 50% plaque proximally. The LAD has no evidence of high-grade stenosis. LEFT CIRCUMFLEX: This is a large dominant vessel, bifurcating distally PDA and posterolateral segment and branches. The stented segment in the mid left circumflex is patent. It gives rise to two obtuse marginal branches. Both stented segment in the first and second obtuse marginal branch is patent after the takeoff of the second obtuse marginal branch. There is about a 50% plaque in the stented segment, beyond that it bifurcates in the PDA and PLV. RIGHT CORONARY ARTERY: This is a nondominant vessel, small in caliber, giving rise to an acute marginal branch. The right coronary artery has mild intimal disease without any evidence of high-grade stenosis. LEFT VENTRICULOGRAM: Left ventriculogram is performed in 30 degree BOSE view and revealed normal ventricular size and systolic function. Ejection fraction 60%. There was no significant mitral regurgitation. HEMODYNAMICS: There was no gradient across the aortic valve. The left ventricular end- diastolic pressure was 14-16 mmHg. CONCLUSION: 1. Patent stent to the left circumflex with mild to moderate in-stent restenosis in the distal left circumflex. 2. Mild disease in the LAD and the right coronary artery. 3. Left dominance. 4. Normal left ventricular size and systolic function. RECOMMENDATION: In view of finding anatomy, I recommend continue medical therapy with aggressive risk modifications being initiated. Those findings and recommendation were discussed with the patient and his family and they are in full understanding and agreement. Duration of sedation is 18 minutes. ÁNGELA / JARRED: [id number] /
[2020-02-07] MEDS ORDERED: cloNIDine HCL 0.1 MG TAB PO SCH (16:00)
[2020-02-07 20:11] VITALS: BP 128/69; PULSE 61
[2020-02-07] MEDS ORDERED: NON FORMULARY DRUG (Vit C/E/Zn/Coppr/Lutein/Zeaxan [Preservision Areds 2 Softgel] 1 EACH C PO SCH (21:00)
[2020-02-07] MEDS ORDERED: ATORVASTATIN 40 MG TAB PO SCH (21:00)
[2020-02-08] MEDS ORDERED: atenoloL 50 MG TAB PO SCH (09:00)
[2020-02-08] MEDS ORDERED: [UNRECOGNIZED DRUG - OTHER] PO SCH (09:00)
[2020-02-08] MEDS ORDERED: CLOPIDOGREL 75 MG TAB PO SCH (09:00)
[2020-02-08] MEDS ORDERED: LOSARTAN 50 MG TAB PO SCH (09:00)
[2020-02-08] MEDS ORDERED: LEVOTHYROXINE 100 MCG TAB PO SCH (09:00)
[2020-02-08] MEDS ORDERED: amLODIPine 10 MG TAB PO SCH (09:00)
[2020-02-08] MEDS ORDERED: CALCIUM CARBONATE PO SCH (09:00)
[2020-02-08] MEDS ORDERED: hydroCHLOROthiazide 25 MG TAB PO SCH (09:00)
[2020-02-08] MEDS ORDERED: AMIODARONE 100 MG TAB PO SCH (09:00)
== END 2020-02-07 15:01 | disposition home or self-care (01) ==
LOC: CATHCVL 07:38
PROVIDERS: ATTEND Internal Medicine Interventional Cardiology
DX: I25.10 Atherosclerotic heart disease of native coronary artery without angina pectoris (principal); T82.855A Stenosis of coronary artery stent, initial encounter; I25.84 Coronary atherosclerosis due to calcified coronary lesion; I10 Essential (primary) hypertension; E78.00 Pure hypercholesterolemia, unspecified; Z79.02 Long term (current) use of antithrombotics/antiplatelets; Z79.82 Long term (current) use of aspirin; Z79.899 Other long term (current) drug therapy; E11.9 Type 2 diabetes mellitus without complications; Z96.659 Presence of unspecified artificial knee joint; Z98.890 Other specified postprocedural states; Z82.49 Family history of ischemic heart disease and other diseases of the circulatory system; Z87.891 Personal history of nicotine dependence; I48.0 Paroxysmal atrial fibrillation; E78.2 Mixed hyperlipidemia; Z79.01 Long term (current) use of anticoagulants; Z79.84 Long term (current) use of oral hypoglycemic drugs; Z79.890 Hormone replacement therapy
CPT/HCPCS: 93458; C1769; C1894; J2250; J2001; J3010; J1644; Q9967

== ENCOUNTER 2020-05-13 07:05 | Day surgery (SDC) | payer MEDICARE ==
[2020-05-09 09:42] VITALS: BMI 28.1
[~2020-05-13 07:05] MED LIST changes: -ALPRAZolam 0.25 MG TAB PO PRN; -ALPRAZolam 0.5 MG TAB PO PRN; -ASPIRIN 325 MG TAB PO STA; -ATORVASTATIN 80 MG TAB PO STA; +LACTATED RINGERS 1,000 ML IV SCH; +LIDOCAINE 1% (10MG/ML) FOR IV START INTRADERMA PRN; -NITROGLYCERIN SL TABS 0.4 MG TAB SUBLINGUAL PRN; -SODIUM CHLORIDE 0.9% 1,000 ML in EMPTY BAG 1 BAG IV ONE
[2020-05-13 07:28] VITALS: RESP 16; TEMP 99.1
[2020-05-13 07:40] LABS: Glucose,Whole Blood 175 mg/dL (75-99)
[2020-05-13] MEDS ORDERED: PROPOFOL 10 MG/ML 20 ML VIAL IV ONE (07:54)
[2020-05-13] MEDS ORDERED: PHENYLEPHRINE-0.9% NACL SYG 1,000 MCG/10 ML SYRINGE ONE (07:54)
[2020-05-13] MEDS ORDERED: LIDOCAINE 1% INJ 10MG/ML (20 ML MDV) ONE (07:54)
--- NOTE | 2020-05-13 08:21 | P.PCN ---
Date of Procedure: 05/13/20 Description of Procedure: BRIEF HISTORY: Patient is a 79-year-old male presenting for outpatient colonoscopy for evaluation of blood in stool. The patient reports last colonoscopy 5 years ago. He denies any abdominal pain or signs or symptoms of bleeding but did have positive stool testing. No family history of colon cancer. He does report chronic constipation at baseline. PROCEDURE PERFORMED: Colonoscopy aborted/incomplete. PREOPERATIVE DIAGNOSIS: Blood in stool, patient reports last colonoscopy approximately 5 years ago. ESTIMATED BLOOD LOSS: Minimal. IV sedation per Anesthesia. PROCEDURE: After informed consent was obtained, the patient, was brought into the endoscopy unit. IV sedation was administered by Anesthesia under continuous monitoring. Digital rectal examination was normal. Initially the Olympus CF-190 flexible video colonoscope was then inserted in the rectum, gradually advanced into the descending colon at which time the procedure was aborted due to a poor prep with solid stool throughout the visualized colon. Careful examination was performed as the scope was gradually being withdrawn. Prep was poor with solid stool throughout the visualized colon. Mucosa of the descending colon, sigmoid colon, and rectuwhich were able to be visualized and appear normal, however the visualization severely limited by poor prep. Multiple small and large mouth diverticula in the left colon. Retroflexion was performed in the rectum and no lesions were seen. The patient tolerated the procedure well. IMPRESSION Moderate left-sided diverticulosis. Poor prep. Colonoscopy incomplete/aborted secondary to poor prep with formed stool throughout the visualized colon. RECOMMENDATIONS: Findings of this examination were discussed with the patient and his family. Okay to resume diet. Okay to resume medications. Recommend repeat colonoscopy in 3 months with 2 day prep for blood in stool.
[2020-05-13 08:36] VITALS: BP 113/69; PULSE 57
== END 2020-05-13 09:13 | disposition home or self-care (01) ==
LOC: ORWHC2ENDO 07:05
PROVIDERS: ATTEND Internal Medicine
DX: K57.30 Diverticulosis of large intestine without perforation or abscess without bleeding (principal); I10 Essential (primary) hypertension; I25.10 Atherosclerotic heart disease of native coronary artery without angina pectoris; E11.9 Type 2 diabetes mellitus without complications; Z79.01 Long term (current) use of anticoagulants; Z88.5 Allergy status to narcotic agent; Z79.899 Other long term (current) drug therapy; Z87.891 Personal history of nicotine dependence; Z98.41 Cataract extraction status, right eye; Z98.42 Cataract extraction status, left eye; Z98.890 Other specified postprocedural states
CPT/HCPCS: 45330; J2001; J2370; J2704; 45378

== ENCOUNTER 2020-08-23 07:07 | Day surgery (SDC) | payer MEDICARE ==
[2020-08-21 13:00] VITALS: BMI 28.1
[~2020-08-23 07:07] MED LIST changes: -LIDOCAINE 1% (10MG/ML) FOR IV START INTRADERMA PRN
[2020-08-23] MEDS ORDERED: LIDOCAINE 1% (10MG/ML) FOR IV START INTRADERMA ONE (08:00)
[2020-08-23 08:02] VITALS: RESP 16; TEMP 98.9
[2020-08-23 08:03] LABS: Glucose,Whole Blood 167 mg/dL (75-99)
[2020-08-23] MEDS ORDERED: LIDOCAINE 1% INJ 10MG/ML (20 ML MDV) ONE (08:15)
[2020-08-23] MEDS ORDERED: PROPOFOL 10 MG/ML 20 ML VIAL IV ONE (08:15)
--- NOTE | 2020-08-23 08:44 | P.PCN ---
Date of Procedure: 08/23/20 Procedure(s) Performed: BRIEF HISTORY: Patient is a 80-year-old pleasant male scheduled for an elective colonoscopy as a part of evaluation of Hemoccult-positive stool. PROCEDURE PERFORMED: Colonoscopy. PREOPERATIVE DIAGNOSIS: Blood in the stool. IV sedation per Anesthesia. PROCEDURE: After informed consent was obtained, the patient, was brought into the endoscopy unit. IV sedation was administered by Anesthesia under continuous monitoring. Digital rectal examination was normal. Initially the Olympus CF-160 flexible video colonoscope was then inserted in the rectum, gradually advanced into the cecum without any difficulty. Careful examination was performed as the scope was gradually being withdrawn. Ileocecal valve and the appendiceal orifice were visualized and appeared normal. Prep was excellent. Mucosa of the cecum, ascending colon, transverse colon, descending colon, sigmoid colon, and rectum appeared normal. Extensive left sided diverticulosis seen Retroflexion was performed in the rectum and small internal hemorrhoids were seen. The patient tolerated the procedure well. IMPRESSION: Normal-appearing colon from rectum to cecum with no evidence of colitis or colorectal neoplasia Extensive left sided diverticulosis small internal hemorrhoids . RECOMMENDATIONS: Findings of this examination were discussed with the patient as well as his family. He was advised to be a high-fiber diet and take fiber supplements a regular basis. He can resume eliquis today.
[2020-08-23 09:18] VITALS: BP 142/78; PULSE 53
== END 2020-08-23 09:38 | disposition home or self-care (01) ==
LOC: ORWHC2ENDO 07:07
PROVIDERS: ATTEND Internal Medicine Gastroenterology
DX: R19.5 Other fecal abnormalities (principal); K57.90 Diverticulosis of intestine, part unspecified, without perforation or abscess without bleeding; I25.10 Atherosclerotic heart disease of native coronary artery without angina pectoris; I10 Essential (primary) hypertension; K64.8 Other hemorrhoids; E78.5 Hyperlipidemia, unspecified; E11.9 Type 2 diabetes mellitus without complications; E07.9 Disorder of thyroid, unspecified; K21.9 Gastro-esophageal reflux disease without esophagitis; Z79.899 Other long term (current) drug therapy; Z79.01 Long term (current) use of anticoagulants; Z79.84 Long term (current) use of oral hypoglycemic drugs; Z79.82 Long term (current) use of aspirin
CPT/HCPCS: 45378; J2001; J2704

== ENCOUNTER → 2020-08-27 | Outpatient (CLI) | payer MEDICARE ==
--- NOTE | 2020-08-27 14:08 | XR ---
EXAM TYPE: LUMBAR SPINE X RAY SERIES COMPARISON: NONE HISTORY: Lower back pain TECHNIQUE: 4 views are submitted. FINDINGS: Alignment is anatomic. The pedicles are intact. The transverse processes are intact. There is vasc ular calcifications and diffuse osteopenia and severe multilevel degenerative disc disease and facet arthropathy. IMPRESSION: 1. Severe multilevel degenerative disc disease with grade 1 anterolisthesis L5 on S1. Multilevel srinivas re facet arthropathy and foraminal encroachment suspected.
== END | disposition home or self-care (01) ==
LOC: RADXRMAIN 13:18
PROVIDERS: ATTEND Family Medicine
DX: M51.37 Other intervertebral disc degeneration, lumbosacral region (principal); M47.816 Spondylosis without myelopathy or radiculopathy, lumbar region; M43.17 Spondylolisthesis, lumbosacral region
CPT/HCPCS: 72110

== ENCOUNTER 2020-08-28 04:15 | Emergency (ER) | payer MEDICARE ==
[2020-08-28 04:27] VITALS: PULSE 77
--- NOTE | 2020-08-28 04:48 | ED ---
Fall HPI - General Chief Complaint: Fall Stated Complaint: Elbow laceration Time Seen by Provider: 08/28/20 04:27 Source: patient, family, RN notes reviewed, old records reviewed Mode of arrival: ambulatory Limitations: no limitations - History of Present Illness Initial Comments: This is an 80-year-old male DF for evaluation patient Dese for evaluation of fall. Fall from standing with left elbow pain. Patient does have skin tear and abrasion to that elbow no other somatic injury noted per patient. No symptoms of headache chest pain shortness of breath or abdominal pain. No lightheadedness or dizziness MD Complaint: fall -: hour(s) Fall From: standing When Fall Occurred: unsure Fall Witnessed: no Place Fall Occurred: home Loss of Consciousness: none Prolonged Down Time?: no Symptoms Prior to Fall: none Location - Extremities: Right: Elbow Severity: mild Severity scale (1-10): 3 Context: tripped/slipped Associated Symptoms: denies - Related Data Home Medications Medication Instructions Recorded Confirmed Levothyroxine Sodium [Levoxyl] 100 mcg PO DAILY 02/15/17 08/23/20 metFORMIN HCL [Glucophage] 1,000 mg PO BID 02/15/17 08/23/20 Atorvastatin [Lipitor] 40 mg PO HS 12/02/18 08/23/20 Vit C/E/Zn/Coppr/Lutein/Zeaxan 1 cap PO BID 12/02/18 08/23/20 [Preservision Areds 2 Softgel] Amiodarone [Cordarone] 100 mg PO DAILY 02/05/20 08/23/20 atenoloL [Tenormin] 50 mg PO DAILY 02/05/20 08/23/20 Aspirin [Adult Low Dose Aspirin EC] 81 mg PO DAILY 05/09/20 08/23/20 Multivitamins, Thera [Multivitamin 1 tab PO DAILY 05/09/20 08/23/20 (formulary)] Previous Rx's Medication Instructions Recorded Losartan [Cozaar] 100 mg PO DAILY #90 tab 10/29/18 hydroCHLOROthiazide [Hydrodiuril] 25 mg PO DAILY #90 tab 10/29/18 Apixaban [Eliquis] 5 mg PO BID tab 12/04/18 amLODIPine [Norvasc] 10 mg PO DAILY tab 12/04/18 cloNIDine HCL [Catapres] 0.1 mg PO TID tab 12/04/18 Allergies Allergy/AdvReac Type Severity Reaction Status Date / Time ibuprofen AdvReac PASSED OUT Verified 08/28/20 04:23 Review of Systems ROS Statement: Those systems with pertinent positive or pertinent negative responses have been documented in the HPI. ROS Other: All systems not noted in ROS Statement are negative. Past Medical History Past Medical History: Atrial Fibrillation, Atrial Flutter, Coronary Artery Disease (CAD), Diabetes Mellitus, GERD/Reflux, Hyperlipidemia, Hypertension, Osteoarthritis (OA), Pneumonia, Thyroid Disorder Additional Past Medical History / Comment(s): chronic L shoulder pain, TIA- no residual effects. pt denies UT, constipation, Last Myocardial Infarction Date:: unknown silent History of Any Multi-Drug Resistant Organisms: None Reported Past Surgical History: Heart Catheterization, Heart Catheterization With Stent, Hernia Repair, Joint Replacement, Orthopedic Surgery Additional Past Surgical History / Comment(s): 4 cardiac stents, R total reverse shoulder, L knee partial replacement, bilateral inguinal hernia repairs, colonoscopy, bilateral cataract removals/lens implants. carpal tunnel rt hand Past Anesthesia/Blood Transfusion Reactions: No Reported Reaction Date of Last Stent Placement:: 12/27/18 Past Psychological History: No Psychological Hx Reported Smoking Status: Former smoker Past Alcohol Use History: None Reported Past Drug Use History: None Reported - Past Family History Mother Family Medical History: No Reported History Brother(s) Family Medical History: CVA/TIA, Myocardial Infarction (UT) Additional Family Medical History / Comment(s): Pt had a brother who from a UT and CVA at the age of 55yr. Father Family Medical History: Hypertension General Exam - General Exam Comments Initial Comments: Patient does have skin tear to right elbow. Skin tear has been bandaged appropriately here in the ER and cleaned Limitations: no limitations General appearance: alert, in no apparent distress Head exam: Present: atraumatic, normocephalic, normal inspection Eye exam: Present: normal appearance, PERRL, EOMI. Absent: scleral icterus, conjunctival injection, periorbital swelling ENT exam: Present: normal exam, mucous membranes moist Neck exam: Present: normal inspection. Absent: tenderness, meningismus, lymphadenopathy Respiratory exam: Present: normal lung sounds bilaterally. Absent: respiratory distress, wheezes, rales, rhonchi, stridor Cardiovascular Exam: Present: regular rate, normal rhythm, normal heart sounds. Absent: systolic murmur, diastolic murmur, rubs, gallop, clicks GI/Abdominal exam: Present: soft, normal bowel sounds. Absent: distended, tenderness, guarding, rebound, rigid Extremities exam: Present: normal inspection, full ROM, normal capillary refill. Absent: tenderness, pedal edema, joint swelling, calf tenderness Back exam: Present: normal inspection Neurological exam: Present: alert, oriented X3, CN II-XII intact Psychiatric exam: Present: normal affect, normal mood Skin exam: Present: warm, dry, intact, normal color. Absent: rash Course Vital Signs 08/28/20 08/28/20 04:23 06:02 Temperature 97.6 F 98 F Pulse Rate 77 77 Respiratory 16 20 Rate Blood Pressure 170/80 128/78 O2 Sat by Pulse 99 98 Oximetry - Reevaluation(s) Reevaluation #1: Medical record is reviewed Patient symptoms significantly improved here in the ER Patient informed results questions answered Medical Decision Making - Medical Decision Making 80 male to the ER for evaluation of fall abrasion he sustained. Abrasion is cleaned and washed. Bandaged. X-rays negative and patient can be discharged home - Radiology Data Radiology results: report reviewed (X-ray although negative for traumatic injury), image reviewed Disposition Clinical Impression: Fall, Abrasion of right arm Disposition: HOME SELF-CARE Condition: Good Instructions (If sedation given, give patient instructions): Fall Prevention for Older Adults (ED), Abrasion (ED) Is patient prescribed a controlled substance at d/c from ED?: No Referrals: Mary Leon MD [Primary Care Provider] - 1-2 days
--- NOTE | 2020-08-28 05:47 | XR ---
EXAM: XR Right Elbow Complete, 3 or More Views CLINICAL HISTORY: ITS.REASON XR Reason: pain TECHNIQUE: Frontal, lateral and oblique views of the right elbow. COMPARISON: None FINDINGS: Bones/joints: No displaced fracture or dislocation identified. Mild degenerative changes of the right elbow. Small enthesophyte off the olecranon process. No elbow joint effusion. Soft tissues: Normal. IMPRESSION: No displaced fracture or dislocation identified.
[2020-08-28] MEDS ORDERED: DIPH,PERTUS(ACELL)TETVAC-LF 0.5 ML VIAL IM ONE (05:51)
[2020-08-28] MEDS ORDERED: CEPHALEXIN 500MG STARTER PACK 4 CAP BTL PO STA (05:51)
[2020-08-28] MEDS ORDERED: CEPHALEXIN 500 MG CAP PO STA (05:51)
[2020-08-28 06:08] VITALS: BP 128/78; RESP 20; TEMP 98
== END 2020-08-28 06:09 | disposition home or self-care (01) ==
LOC: EC 04:15
DX: S50.311A Abrasion of right elbow, initial encounter (principal); I10 Essential (primary) hypertension; E11.9 Type 2 diabetes mellitus without complications; E78.5 Hyperlipidemia, unspecified; I48.91 Unspecified atrial fibrillation; I48.92 Unspecified atrial flutter; I25.10 Atherosclerotic heart disease of native coronary artery without angina pectoris; K21.9 Gastro-esophageal reflux disease without esophagitis; M19.90 Unspecified osteoarthritis, unspecified site; I25.2 Old myocardial infarction; Z87.891 Personal history of nicotine dependence; Z79.01 Long term (current) use of anticoagulants; Z79.82 Long term (current) use of aspirin; Z79.84 Long term (current) use of oral hypoglycemic drugs; W18.30XA Fall on same level, unspecified, initial encounter
CPT/HCPCS: 90471; 90715; 99284

== ENCOUNTER → 2020-10-01 | Outpatient (CLI) | payer MEDICARE ==
--- NOTE | 2020-10-01 16:04 | US ---
EXAMINATION TYPE: US kidneys/renal and bladder DATE OF EXAM: 10/01/2020 COMPARISON: US 03/29/13 CLINICAL HISTORY: [id number] Chronic kidney disease, nonspecific. Frequency EXAM MEASUREMENTS: Right Kidney: 12.7 x 6.1 x 5.5 cm Left Kidney: 13.1 x 7.1 x 6.0 cm Post Void Residual Volume: 213.5 mL Right Kidney: No hydronephrosis or masses seen Left Kidney: No hydronephrosis or masses seen. 6mm cyst versus prominent calyx laterally Bladder: thick walled = 0.7 cm but possibly due to underdistention Bilateral Jets seen: Yes Normal Post Void Residual: No There is no evidence for hydronephrosis at this point in time. No nephrolithiasis is seen. No jose martin s are identified. The urinary bladder is anechoic. Bilateral ureteral jets are seen. IMPRESSION: The urinary bladder appears thick walled which may be due to underdistention but there is elevated po st void residual volume measuring 214 mL. Please correlate clinically for possible urinary bladder ou tlet obstruction or other etiology.
== END | disposition home or self-care (01) ==
LOC: RADUSWWP 14:32
PROVIDERS: ATTEND Family Medicine
DX: N18.30 Chronic kidney disease, stage 3 unspecified (principal); N32.89 Other specified disorders of bladder
CPT/HCPCS: 76770

== ENCOUNTER → 2021-01-27 | Outpatient (CLI) | payer MEDICARE ==
[2021-01-27 14:13] LABS: Appearance,Urine Clear (Clear); Bilirubin,Urine Negative (Negative); Blood,Urine Negative (Negative); Color,Urine Light Yellow; Glucose,Urine (UA) Negative (Negative); Ketones,Urine Negative (Negative); Leukocyte Esterase,Urine Negative (Negative); Nitrite,Urine Negative (Negative); PH, Urine 7.5 (5.0-8.0); Protein,Urine 1+ (Negative); RBC,Urine <1 /hpf (0-5); Specific Gravity,Urine 1.008 (1.001-1.035); Urobilinogen,Urine <2.0 mg/dL (<2.0); WBC,Urine <1 /hpf (0-5)
[2021-01-27 20:02] LABS: HCT 40.4 % (39.6-50.0); HGB 13.6 g/dL (13.0-17.0); MCH 32.3 pg (27.0-32.0); MCHC 33.7 g/dL (32.0-37.0); Mean Platelet Volume 11.7 fL (9.5-12.2); Platelet Count 238 X 10*3/uL (140-440); RBC 4.21 X 10*6/uL (4.40-5.60); RDW 12.5 % (11.5-14.5)
[2021-01-27 20:58] LABS: % Iron Saturation 26.53 (15.00-50.00); African American GFR (CKD) 100.2 (60.0-200.0); Albumin 4.5 g/dL (3.8-4.9); Albumin/Globulin Ratio 1.9 (1.60-3.17); Anion Gap 19.5 mmol/L (4.00-12.00); BUN/Creat Ratio 15.23 Ratio (12.00-20.00); Blood Urea Nitrogen 11.3 mg/dL (9.0-27.0); Calcium 9.4 mg/dL (8.7-10.3); Carbon Dioxide 23.3 mmol/L (21.6-31.8); Globulin 2.4 g/dL (1.6-3.3); Magnesium 1.8 mg/dL (1.5-2.4); Non-African American GFR(CKD) 86.4 (60.0-200.0); Phosphorus 3.7 mg/dL (2.4-5.1); Potassium 4.3 mmol/L (3.5-5.5); Total Bilirubin 0.4 mg/dL (0.30-1.20); Total Protein 6.9 g/dL (6.2-8.2)
[2021-01-28 11:54] LABS: Urine Creatinine 42.9 mg/dL (39.0-259.0)
== END | disposition home or self-care (01) ==
LOC: LABWHC1 13:21
PROVIDERS: ATTEND Internal Medicine
DX: E11.22 Type 2 diabetes mellitus with diabetic chronic kidney disease (principal); N18.30 Chronic kidney disease, stage 3 unspecified; D64.9 Anemia, unspecified; E55.9 Vitamin D deficiency, unspecified; N39.0 Urinary tract infection, site not specified; M10.9 Gout, unspecified; R80.9 Proteinuria, unspecified; E87.1 Hypo-osmolality and hyponatremia
CPT/HCPCS: 36415; 80053; 81001; 82043; 82306; 82570; 82728; 83540; 83550; 83735; 83930; 83935; 84100; 84300; 84443; 84550; 85027

== ENCOUNTER → 2021-02-26 | Outpatient (CLI) | payer MEDICARE ==
[2021-02-26 16:41] LABS: ALT 37 U/L (10-49); AST 27 U/L (14-35); Chol/HDL Ratio 2.82 Ratio; LDL Cholesterol,Calculated 20.9 mg/dL (0.0-131.0)
== END | disposition home or self-care (01) ==
LOC: LABWHC1 09:49
PROVIDERS: ATTEND Nurse Practitioner Adult Health
DX: E78.2 Mixed hyperlipidemia (principal)
CPT/HCPCS: 36415; 80061; 84450; 84460

== ENCOUNTER → 2021-07-30 | Outpatient (CLI) | payer MEDICARE ==
--- NOTE | 2021-07-30 13:54 | XR ---
EXAMINATION TYPE: XR bone survey complete DATE OF EXAM: 07/30/2021 COMPARISON: NONE HISTORY: MONOCLONAL GAMMOPATHY Findings: A postsurgical change right shoulder and arthropathy of the left shoulder and diffuse osteopenia note d. Lungs are clear. Heart size normal. Atherosclerotic change aorta. Correlate for COPD. There is mul tilevel severe degenerative disc disease throughout the cervical spine with severe diffuse osteopenia . Multilevel facet arthropathy. Dense vascular calcification of soft tissues of the neck greater on t he left can be associated with carotid atherosclerotic disease. Severe arthropathy left shoulder. No osseous lesions. Postsurgical change right shoulder. No osseous lesions of the right upper extremity. Calvarium demonstrates no definite diagnostic lesions. Areas of faint demineralization incidentally n oted. Hypertrophic and degenerative change of the thoracic spine. No diagnostic osseous lesions. Hypertrophic and severe multilevel degenerative disc disease of the lumbar spine with no evidence of osseous lesion. A grade 1 anterolisthesis L5 on S1. Arthropathy of the hip and knee joints bilaterally with vascular calcifications noted. No intraosseou s lesions. Postsurgical change left knee. IMPRESSION: 1. No intraosseous lesions identified. 2. Dense calcification soft tissue of the neck can be associated with atherosclerotic change of the c arotid arteries correlate clinically.
== END | disposition home or self-care (01) ==
LOC: RADXRMAIN 13:07
PROVIDERS: ATTEND Internal Medicine Hematology & Oncology
DX: M79.89 Other specified soft tissue disorders (principal); I65.29 Occlusion and stenosis of unspecified carotid artery; D47.2 Monoclonal gammopathy
CPT/HCPCS: 77075

== ENCOUNTER → 2021-08-28 | Outpatient (CLI) | payer MEDICARE ==
[2021-08-28 14:56] LABS: Basophils # (A) 0.02 X 10*3/uL (0.00-0.10); Basophils % (A) 0.3 %; Eosinophils # (A) 0.22 X 10*3/uL (0.04-0.35); Eosinophils % (A) 3.1 %; HCT 39.1 % (39.6-50.0); HGB 12.6 g/dL (13.0-17.0); Immature Grans, Automated 0.4 %; Lymphocytes # (A) 1.65 X 10*3/uL (0.90-5.00); Lymphocytes % (A) 23.4 %; MCH 30.7 pg (27.0-32.0); MCHC 32.2 g/dL (32.0-37.0); MCV 95.1 fL (80.0-97.0); Mean Platelet Volume 11.4 fL (9.5-12.2); Monocytes # (A) 0.97 X 10*3/uL (0.20-1.00); Monocytes % (A) 13.7 %; NRBC Per 100 WBC 0 /100 WBCS (0.0-0.0); Neutrophils # (A) 4.17 X 10*3/uL (1.80-7.70); Neutrophils % (A) 59.1 %; Platelet Count 224 X 10*3/uL (140-440); RBC 4.11 X 10*6/uL (4.40-5.60); RDW 12.9 % (11.5-14.5); WBC 7.06 X 10*3/uL (4.50-10.00)
[2021-08-28 15:20] LABS: ALT 30 U/L (10-49); AST 23 U/L (14-35); African American GFR (CKD) 92.9 (60.0-200.0); Albumin 4.4 g/dL (3.8-4.9); Albumin/Globulin Ratio 1.74 (1.60-3.17); Alkaline Phosphatase 72 U/L (41-126); BUN/Creat Ratio 15.39 Ratio (12.00-20.00); Blood Urea Nitrogen 13.5 mg/dL (9.0-27.0); Carbon Dioxide 26.8 mmol/L (20.0-27.5); Chloride 94 mmol/L (96-109); Chol/HDL Ratio 2.94 Ratio; Globulin 2.5 g/dL (1.6-3.3); Glucose 155 mg/dL (70-110); LDL Cholesterol,Calculated 18.8 mg/dL (0.0-131.0); Non-African American GFR(CKD) 80.1 (60.0-200.0); Potassium 4.1 mmol/L (3.5-5.5); Sodium 132 mmol/L (135-145)
== END | disposition home or self-care (01) ==
LOC: LABWHC1 09:34
PROVIDERS: ATTEND Family Medicine
DX: E03.9 Hypothyroidism, unspecified (principal); E78.5 Hyperlipidemia, unspecified; E11.40 Type 2 diabetes mellitus with diabetic neuropathy, unspecified
CPT/HCPCS: 36415; 80053; 80061; 83036; 84439; 84443; 85025

== ENCOUNTER → 2021-09-16 | Outpatient (CLI) | payer MEDICARE ==
[2021-09-16 15:49] LABS: ALT 33 U/L (10-49); AST 24 U/L (14-35); African American GFR (CKD) 87.7 (60.0-200.0); Albumin 4.6 g/dL (3.8-4.9); Albumin/Globulin Ratio 1.73 (1.60-3.17); Alkaline Phosphatase 72 U/L (41-126); BUN/Creat Ratio 16.15 Ratio (12.00-20.00); Blood Urea Nitrogen 15.1 mg/dL (9.0-27.0); Calcium 9.2 mg/dL (8.7-10.3); Carbon Dioxide 26.2 mmol/L (20.0-27.5); Chloride 98 mmol/L (96-109); Chol/HDL Ratio 2.96 Ratio; Globulin 2.6 g/dL (1.6-3.3); Glucose 168 mg/dL (70-110); LDL Cholesterol,Calculated 16.3 mg/dL (0.0-131.0); Non-African American GFR(CKD) 75.7 (60.0-200.0); Potassium 4.6 mmol/L (3.5-5.5); Sodium 137 mmol/L (135-145); Total Protein 7.2 g/dL (6.2-8.2)
== END | disposition home or self-care (01) ==
LOC: LABWHC1 09:44
PROVIDERS: ATTEND Internal Medicine Interventional Cardiology
DX: I10 Essential (primary) hypertension (principal); E78.2 Mixed hyperlipidemia
CPT/HCPCS: 36415; 80053; 80061

== ENCOUNTER → 2021-10-14 | Outpatient (CLI) | payer MEDICARE ==
--- NOTE | 2021-10-15 05:31 | US ---
EXAMINATION TYPE: US kidneys/renal and bladder DATE OF EXAM: 10/14/2021 COMPARISON: NONE CLINICAL HISTORY: N18.1 CHRONIC KIDNEY DISEASE, STAGE 1. CKD EXAM MEASUREMENTS: Right Kidney: 11.2 x 5.8 x 5.9 cm Left Kidney: 11.7 x 6.6 x 5.3 cm Right Kidney: no evidence of hydronephrosis Left Kidney: no evidence of hydronephrosis Bladder: diverticula noted Bilateral Jets seen: no . IMPRESSION: No evidence of renal mass or obstruction. Urinary bladder is somewhat irregular . There Is also some wall thickening that could be some nonspecific cystitis.
== END | disposition home or self-care (01) ==
LOC: RADUSWWP 15:39
PROVIDERS: ATTEND Internal Medicine Nephrology
DX: N18.1 Chronic kidney disease, stage 1 (principal)
CPT/HCPCS: 76770

== ENCOUNTER → 2022-03-27 | Outpatient (CLI) | payer MEDICARE ==
[2022-03-27 17:55] LABS: ALT 31 U/L (10-49); AST 23 U/L (14-35); African American GFR (CKD) 93.9 (60.0-200.0); Albumin 4.5 g/dL (3.8-4.9); Albumin/Globulin Ratio 1.75 (1.60-3.17); Alkaline Phosphatase 77 U/L (41-126); BUN/Creat Ratio 15.93 Ratio (12.00-20.00); Blood Urea Nitrogen 13.6 mg/dL (9.0-27.0); Carbon Dioxide 27.7 mmol/L (20.0-27.5); Chloride 98 mmol/L (96-109); Chol/HDL Ratio 3.19 Ratio; Globulin 2.5 g/dL (1.6-3.3); Glucose 149 mg/dL (70-110); LDL Cholesterol,Calculated 14.6 mg/dL (0.0-131.0); Potassium 4.2 mmol/L (3.5-5.5); Sodium 137 mmol/L (135-145)
== END | disposition home or self-care (01) ==
LOC: LABWHC1 10:25
PROVIDERS: ATTEND Internal Medicine Interventional Cardiology
DX: E78.2 Mixed hyperlipidemia (principal)
CPT/HCPCS: 36415; 80053; 80061

== ENCOUNTER → 2022-09-02 | Outpatient (CLI) | payer MEDICARE ==
--- NOTE | 2022-09-02 15:08 | US ---
EXAMINATION TYPE: US abdomen limited DATE OF EXAM: 09/02/2022 COMPARISON: NONE CLINICAL INDICATION: Male, 82 years old with history of R19.00 INTRA-ABD AND PELVIC SWELLING, MASS AN D LUMP; Patient has shingles with rash x 1 week. Patient states the area of rash at lower right abdo men extending medial to lateral is getting hard. Per office, look for fluid collection. TECHNIQUE: Multiple sonographic images taken of area of concern. FINDINGS: Area of concern scanned. No prominent masses or fluid collections identified at area of s can. Edema visualized. IMPRESSION: 1. Some mild cutaneous edema is present. No suspicious fluid collections are otherwise evident.
== END | disposition home or self-care (01) ==
LOC: RADUSWWP 13:39
PROVIDERS: ATTEND Family Medicine
DX: R19.09 Other intra-abdominal and pelvic swelling, mass and lump (principal); R60.0 Localized edema
CPT/HCPCS: 76705

== ENCOUNTER 2022-09-04 13:56 | Emergency (ER) | payer MEDICARE ==
[2022-09-04 14:35] VITALS: TEMP 97.7
--- NOTE | 2022-09-04 15:28 | ED ---
General Adult HPI - General Source: patient, RN notes reviewed Mode of arrival: ambulatory Limitations: no limitations <Chandni Conn - Last Filed: 09/04/22 15:16> - General Source: RN notes reviewed, old records reviewed - History of Present Illness -: week(s) Location: abdomen Radiation: non-radiation Severity scale (1-10): 7 Quality: aching (Occasional achy pain) Consistency: intermittent, colicky Improves with: none Worsens with: none Associated Symptoms: loss of appetite, malaise, weakness <Larry Barrera - Last Filed: 09/08/22 13:24> - General Chief complaint: Abdominal Pain Stated complaint: constipation - History of Present Illness Initial comments: 82-year-old male presents emergency Department complaining of constipation and bulge in his abdomen x1 week. He states that he has not passed a bowel movement in 1 week. He reports he has been able to pass gas. He recently underwent an ultrasound which he has the report with him today. Denies nausea, vomiting. Denies prior abdominal surgeries. PMH includes DM, HTN, CAD. (Chandni Conn) This is a 82-year-old male presents for one week being unable to have a bowel movement. Patient has small bowel movements intact.. Recently diagnosed with shingles, not anything for pain was on Valtrex for a week, now is currently on antibiotics for what they believe is secondary infection on top of his shingles. Patient has no nausea vomiting no history of abdominal surgery colonoscopy within the last year which she believes was normal (Larry Barrera) - Related Data Home Medications Medication Instructions Recorded Confirmed Levothyroxine Sodium [Levoxyl] 100 mcg PO DAILY 02/15/17 09/04/22 Atorvastatin [Lipitor] 40 mg PO HS 12/02/18 09/04/22 Amiodarone [Cordarone] 100 mg PO DAILY 02/05/20 09/04/22 atenoloL [Tenormin] 50 mg PO DAILY 02/05/20 09/04/22 Aspirin [Adult Low Dose Aspirin EC] 81 mg PO DAILY 05/09/20 09/04/22 Acetaminophen Tab [Tylenol Tab] 500 mg PO Q6H PRN 09/04/22 09/04/22 Cephalexin [Keflex] 500 mg PO TID 09/04/22 09/04/22 Empagliflozin [Jardiance] 10 mg PO DAILY 09/04/22 09/04/22 Furosemide [Lasix] 20 mg PO DAILY 09/04/22 09/04/22 Losartan Potassium [Cozaar] 100 mg PO DAILY 09/04/22 09/04/22 metFORMIN HCL [Glucophage] 1,000 mg PO BID 09/04/22 09/04/22 Previous Rx's Medication Instructions Recorded Apixaban [Eliquis] 5 mg PO BID tab 12/04/18 amLODIPine [Norvasc] 10 mg PO DAILY tab 12/04/18 polyethylene glycoL 3350 [Miralax] 17 gm PO DAILY #30 packet 09/04/22 Allergies Allergy/AdvReac Type Severity Reaction Status Date / Time ibuprofen AdvReac PASSED OUT Verified 09/04/22 16:57 Review of Systems ROS Other: All systems not noted in ROS Statement are negative. <Chandni Conn - Last Filed: 09/04/22 15:16> ROS Other: All systems not noted in ROS Statement are negative. <Larry Barrera - Last Filed: 09/08/22 13:24> ROS Statement: Those systems with pertinent positive or pertinent negative responses have been documented in the HPI. Past Medical History Past Medical History: Atrial Fibrillation, Atrial Flutter, Coronary Artery Disease (CAD), Diabetes Mellitus, GERD/Reflux, Hyperlipidemia, Hypertension, Osteoarthritis (OA), Pneumonia, Thyroid Disorder Additional Past Medical History / Comment(s): chronic L shoulder pain, TIA- no residual effects. pt denies AL, constipation, Last Myocardial Infarction Date:: unknown silent History of Any Multi-Drug Resistant Organisms: None Reported Past Surgical History: Heart Catheterization, Heart Catheterization With Stent, Hernia Repair, Joint Replacement, Orthopedic Surgery Additional Past Surgical History / Comment(s): 4 cardiac stents, R total reverse shoulder, L knee partial replacement, bilateral inguinal hernia repairs, colonoscopy, bilateral cataract removals/lens implants. carpal tunnel rt hand Past Anesthesia/Blood Transfusion Reactions: No Reported Reaction Date of Last Stent Placement:: 12/27/18 Past Psychological History: No Psychological Hx Reported Smoking Status: Former smoker Past Alcohol Use History: None Reported Past Drug Use History: None Reported - Past Family History Mother Family Medical History: No Reported History Brother(s) Family Medical History: CVA/TIA, Myocardial Infarction (AL) Additional Family Medical History / Comment(s): Pt had a brother who from a AL and CVA at the age of 55yr. Father Family Medical History: Hypertension <Chandni Conn - Last Filed: 09/04/22 15:16> General Exam Limitations: no limitations <Chandni Conn - Last Filed: 09/04/22 15:16> General appearance: alert, in no apparent distress Head exam: Present: atraumatic, normocephalic, normal inspection Eye exam: Present: normal appearance, PERRL, EOMI. Absent: scleral icterus, conjunctival injection, periorbital swelling ENT exam: Present: normal exam, mucous membranes moist Neck exam: Present: normal inspection. Absent: tenderness, meningismus, lymphadenopathy Respiratory exam: Present: normal lung sounds bilaterally. Absent: respiratory distress, wheezes, rales, rhonchi, stridor Cardiovascular Exam: Present: regular rate, normal rhythm, normal heart sounds. Absent: systolic murmur, diastolic murmur, rubs, gallop, clicks GI/Abdominal exam: Present: soft, normal bowel sounds. Absent: distended, tenderness, guarding, rebound, rigid Extremities exam: Present: normal inspection, full ROM, normal capillary refill. Absent: tenderness, pedal edema, joint swelling, calf tenderness Back exam: Present: normal inspection Neurological exam: Present: alert, oriented X3, CN II-XII intact Psychiatric exam: Present: normal affect, normal mood Skin exam: Present: warm, dry, intact, normal color. Absent: rash <Larry Barrera - Last Filed: 09/08/22 13:24> - General Exam Comments Initial Comments: Visual Physical Exam Vital signs reviewed General: Well-appearing, nontoxic, no acute distress. Head: Normocephalic, atraumatic Eyes: PERRLA, EOMI ENT: Airway patent Chest: Nonlabored breathing Skin: No visual rash, normal skin tone Neuro: Alert and oriented 3 Musculoskeletal: No gross abnormalities (Chandni Conn) Course <aLrry Barrera - Last Filed: 09/08/22 13:24> Vital Signs 09/04/22 09/04/22 09/04/22 14:31 16:00 17:00 Temperature 97.7 F Pulse Rate 70 63 64 Respiratory 20 16 Rate Blood Pressure 162/77 144/68 149/69 O2 Sat by Pulse 97 97 Oximetry 09/04/22 09/04/22 18:00 19:50 Temperature Pulse Rate 64 69 Respiratory 18 Rate Blood Pressure 157/78 155/69 O2 Sat by Pulse 99 Oximetry - Reevaluation(s) Reevaluation #1: 09/04/22 16:49 Medical records reviewed (Larry Barrera) Reevaluation #2: 09/04/22 16:49 Patient (Larry Barrera) Reevaluation #3: Symptoms resolved after significant bowel movement here in the emergency department (Larry Barrera) Reevaluation #4: 09/04/22 16:49 Was pt. sent in by a medical professional or institution? @ -no Did you speak to anyone other than the patient for history? @ -no Did you review nursing and triage notes? @ -agree Were old charts reviewed? @ -no Differential Diagnosis? @ -prior EKG interpreted by me (3pts min.)? @ -yes X-rays interpreted by me (1pt min.)? @ -no CT interpreted by me (1pt min.)? @ -Yes U/S interpreted by me (1pt. min.)? @ -no What testing was considered but not performed? (CT, X-rays, U/S, labs)? Why? @ -no What meds were considered but not given? Why? @ -no Did you discuss the management of the patient with other professionals? @ -no Did you reconcile home meds? @ -no Was smoking cessation discussed for >3mins.? @ -no Was critical care preformed (if so, how long)? @ -no Were there social determinants of health that impacted care today? How? (Homelessness, low income, unemployed, alcoholism, drug addiction, transportation, low edu. Level, literacy, decrease access to med. care, retirement, rehab)? @ -no Was there de-escalation of care discussed even if they declined? (Discuss DNR or withdrawal of care, Hospice)? @ -no What co-morbidities impacted this encounter? (DM, HTN, Smoking, COPD, CAD, Cancer, CVA, Hep., AIDS, mental health diagnosis, sleep apnea, morbid obesity)? @ -none Was patient admitted / discharged? @ -82 male emergency department today for evaluation of abdominal pain. Significant amount of constipation relieved after enema, had a CT otherwise normal, patient can be discharged home Discharge Undiagnosed new problem with uncertain prognosis? @ -no Drug Therapy requiring intensive monitoring for toxicity (Heparin, Nitro, Insulin, Cardizem)? @ -no Were any procedures done? @ -no Diagnosis/symptom? @ -Acute constipation in significant stool burden, abdominal pain Acute, or Chronic, or Acute on Chronic? @ -no Uncomplicated (without systemic symptoms) or Complicated (systemic symptoms)? @ -uncomplicated Side effects of treatment? @ -no Exacerbation, Progression, or Severe Exacerbation] @ -no Poses a threat to life or bodily function? @ -Yes could to obstruction (Larry Barrera) Reevaluation #5: 09/04/22 16:49 Differential Abdominal Pain Men: Appendicitis, cholecystitis, diverticulosis, ischemic bowel, pancreatitis, hepatitis, UTI, gastroenteritis, AAA, incarcerated hernia, bowel obstruction, constipation, inflammatory bowel, hepatitis, peptic ulcer disease, splenic infarction, perforated viscus, testicular torsion, this is not meant to be an all-inclusive list (Larry Barrera) Medical Decision Making - Lab Data Result diagrams: 09/04/22 16:37 09/04/22 16:37 - Radiology Data Radiology results: report reviewed (CT head and pelvis is positive for significant amount of stool), image reviewed <Larry Barrera - Last Filed: 09/08/22 13:24> - Medical Decision Making 82 male to the emergency department for constipation and abdominal pain. Patient given bowel regimen with enema here in the ER feeling improved, we'll continue bowel regimen at home and can be discharged (Larry Barrera) - Lab Data Lab Results 09/04/22 09/04/22 Range/Units 16:37 16:37 WBC 8.1 (3.8-10.6) k/uL RBC 4.33 (4.30-5.90) m/uL Hgb 13.6 (13.0-17.5) gm/dL Hct 40.6 (39.0-53.0) % MCV 94.0 (80.0-100.0) fL MCH 31.5 (25.0-35.0) pg MCHC 33.5 (31.0-37.0) g/dL RDW 14.3 (11.5-15.5) % Plt Count 290 (150-450) k/uL MPV 7.2 Neutrophils % 70 % Lymphocytes % 16 % Monocytes % 10 % Eosinophils % 1 % Basophils % 0 % Neutrophils # 5.7 (1.3-7.7) k/uL Lymphocytes # 1.3 (1.0-4.8) k/uL Monocytes # 0.8 (0-1.0) k/uL Eosinophils # 0.1 (0-0.7) k/uL Basophils # 0.0 (0-0.2) k/uL Sodium 131 L (137-145) mmol/L Potassium 4.2 (3.5-5.1) mmol/L Chloride 96 L (98-107) mmol/L Carbon Dioxide 25 (22-30) mmol/L Anion Gap 10 mmol/L BUN 17 (9-20) mg/dL Creatinine 0.87 (0.66-1.25) mg/dL Est GFR (CKD-EPI)AfAm >90 (>60 ml/min/1.73 sqM) Est GFR (CKD-EPI)NonAf 80 (>60 ml/min/1.73 sqM) Glucose 114 H (74-99) mg/dL Calcium 8.9 (8.4-10.2) mg/dL Phosphorus 4.1 (2.5-4.5) mg/dL Magnesium 1.8 (1.6-2.3) mg/dL Total Bilirubin 0.7 (0.2-1.3) mg/dL AST 27 (17-59) U/L ALT 31 (4-49) U/L Alkaline Phosphatase 73 (38-126) U/L Total Protein 6.8 (6.3-8.2) g/dL Albumin 3.9 (3.5-5.0) g/dL Amylase 39 (30-110) U/L Lipase 112 (23-300) U/L Disposition <Chandni Conn - Last Filed: 09/04/22 15:16> Is patient prescribed a controlled substance at d/c from ED?: No Time of Disposition: 17:45 <Larry Barrera - Last Filed: 09/08/22 13:24> Clinical Impression: Abdominal pain, Constipation Disposition: HOME SELF-CARE Condition: Good Instructions (If sedation given, give patient instructions): Constipation (ED) Prescriptions: polyethylene glycoL 3350 [Miralax] 17 gm PO DAILY #30 packet Referrals: Christiano Lane MD [Primary Care Provider] - 1-2 days
[2022-09-04] MEDS ORDERED: SODIUM CHLORIDE 0.9% 1,000 ML IV STA (15:51)
[2022-09-04 16:46] LABS: Basophils % (A) 0 %; Eosinophils # (A) 0.1 k/uL (0-0.7); Eosinophils % (A) 1 %; HCT 40.6 % (39.0-53.0); HGB 13.6 gm/dL (13.0-17.5); Lymphocytes # (A) 1.3 k/uL (1.0-4.8); Lymphocytes % (A) 16 %; MCH 31.5 pg (25.0-35.0); MCHC 33.5 g/dL (31.0-37.0); Mean Platelet Volume 7.2; Monocytes # (A) 0.8 k/uL (0-1.0); Monocytes % (A) 10 %; Neutrophils # (A) 5.7 k/uL (1.3-7.7); Neutrophils % (A) 70 %; Platelet Count 290 k/uL (150-450); RBC 4.33 m/uL (4.30-5.90); RDW 14.3 % (11.5-15.5); WBC 8.1 k/uL (3.8-10.6)
[2022-09-04 16:59] LABS: ALT 31 U/L (4-49); AST 27 U/L (17-59); African American GFR (CKD) >90 (>60 ml/min/1.73 sqM); Albumin 3.9 g/dL (3.5-5.0); Alkaline Phosphatase 73 U/L (38-126); Amylase 39 U/L (30-110); Anion Gap 10 mmol/L; Blood Urea Nitrogen 17 mg/dL (9-20); Calcium 8.9 mg/dL (8.4-10.2); Carbon Dioxide 25 mmol/L (22-30); Chloride 96 mmol/L (98-107); Glucose 114 mg/dL (74-99); Lipase 112 U/L (23-300); Magnesium 1.8 mg/dL (1.6-2.3); Non-African American GFR(CKD) 80 (>60 ml/min/1.73 sqM); Phosphorus 4.1 mg/dL (2.5-4.5); Potassium 4.2 mmol/L (3.5-5.1); Sodium 131 mmol/L (137-145); Total Bilirubin 0.7 mg/dL (0.2-1.3); Total Protein 6.8 g/dL (6.3-8.2)
--- NOTE | 2022-09-04 17:09 | CT ---
EXAMINATION TYPE: CT abdomen pelvis wo con CT DLP: 959 mGycm, Automated exposure control for dose reduction was used. DATE OF EXAM: 09/04/2022 4:54 PM COMPARISON: None CLINICAL INDICATION:Male, 82 years old with history of abdominal pain; Abdominal pain. Infection. Con stipation TECHNIQUE: Axial CT of the abdomen and pelvis. Sagittal and coronal reformats were created on a [employer] workstation. Contrast used: None Oral contrast used: without Oral Contrast FINDINGS: LOWER CHEST: Coronary artery atherosclerosis is severe. ABDOMEN LIVER: Diffusely hypoattenuating parenchyma. GALLBLADDER AND BILE DUCTS: Unremarkable. PANCREAS: Unremarkable. SPLEEN: Unremarkable. ADRENAL GLANDS: Unremarkable. KIDNEYS AND URETERS: No evidence of hydronephrosis or renal calculus. Renal sinus calcifications like ly vascular in etiology. PELVIS BLADDER: The bladder is dilated REPRODUCTIVE: Prostate is enlarged in size measuring 5.5 cm in transverse dimension. ABDOMEN & PELVIS STOMACH AND BOWEL: No evidence of bowel obstruction. Large stool burden throughout the colon. The jess endix is normal. The scattered colonic diverticula. PERITONEUM/RETROPERITONEUM: No evidence of pneumoperitoneum or free fluid. VASCULATURE: Severe atherosclerotic calcifications are present throughout the abdominal aorta and its branches. No evidence of aortic aneurysm. MUSCULOSKELETAL: No acute osseous abnormalities. Disc degeneration changes are present throughout the thoracolumbar spine with thickness phenomenon and osteophyte formation and disc space narrowing. LYMPH NODES: No gross evidence for lymphadenopathy. SOFT TISSUE/ABDOMINAL WALL: Unremarkable IMPRESSION: 1. Large stool burden throughout the entire colon. No other acute finding visualized. 2. Hepatic steatosis. 3. Moderate to severe degeneration of the spine. 4. Severe atherosclerosis. 5. Prostatomegaly correlate with serum PSA.
[2022-09-04] MEDS ORDERED: SENNOSIDES-DOCUSATE SODIUM 1 EACH TAB PO STA (17:28)
[2022-09-04 20:06] VITALS: BP 155/69; PULSE 69; RESP 18
== END 2022-09-04 19:50 | disposition home or self-care (01) ==
LOC: EC 13:56
DX: N40.0 Benign prostatic hyperplasia without lower urinary tract symptoms (principal); K59.00 Constipation, unspecified; I10 Essential (primary) hypertension; I25.10 Atherosclerotic heart disease of native coronary artery without angina pectoris; I25.2 Old myocardial infarction; I48.91 Unspecified atrial fibrillation; E11.36 Type 2 diabetes mellitus with diabetic cataract; E78.5 Hyperlipidemia, unspecified; M19.90 Unspecified osteoarthritis, unspecified site; Z79.82 Long term (current) use of aspirin; Z79.84 Long term (current) use of oral hypoglycemic drugs; Z79.890 Hormone replacement therapy; Z79.899 Other long term (current) drug therapy; Z88.6 Allergy status to analgesic agent; Z87.891 Personal history of nicotine dependence
CPT/HCPCS: 36415; 74176; 80053; 82150; 83690; 83735; 84100; 85025; 96360; 96361; 99284

== ENCOUNTER → 2022-09-21 | Outpatient (CLI) | payer MEDICARE ==
[2022-09-21 16:19] LABS: ALT 29 U/L (10-49); AST 21 U/L (14-35); Albumin 4.3 d/dL (3.8-4.9); Albumin/Globulin Ratio 1.79 Ratio (1.60-3.17); Alkaline Phosphatase 77 U/L (41-126); BUN/Creat Ratio 14.56 Ratio (12.00-20.00); Blood Urea Nitrogen 13.1 mg/dL (9.0-27.0); Calcium 8.9 mg/dL (8.7-10.3); Carbon Dioxide 26.6 mmol/L (21.6-31.8); Chloride 95 mmol/L (96-109); Chol/HDL Ratio 2.45 Ratio; Globulin 2.4 d/dL (1.6-3.3); Glucose 143 mg/dL (70-110); LDL Cholesterol,Calculated 29.3 mg/dL (0.0-131.0); Potassium 4.2 mmol/L (3.5-5.5); Sodium 133 mmol/L (135-145); Total Bilirubin 0.5 mg/dL (0.3-1.2); Total Protein 6.7 d/dL (6.2-8.2)
== END | disposition home or self-care (01) ==
LOC: LABWHC1 09:13
PROVIDERS: ATTEND Nurse Practitioner Adult Health
DX: I10 Essential (primary) hypertension (principal); E78.2 Mixed hyperlipidemia
CPT/HCPCS: 36415; 80053; 80061

== ENCOUNTER → 2022-09-23 | Outpatient (CLI) | payer MEDICARE ==
--- NOTE | 2022-09-23 16:38 | CT ---
EXAMINATION TYPE: CT brain cspine wo con CT DLP: 1921 mGycm, Automated exposure control for dose reduction was used. DATE OF EXAM: 09/23/2022 4:31 PM COMPARISON: None CLINICAL INDICATION:Male, 82 years old with history of S09.90XA; pain after fall on 09/21. TECHNIQUE: Brain: Multiple axial CT images of the brain were obtained without IV contrast. Cspine: Axial CT images from the skull base to the inferior aspect of T2 we obtained without intraven ous contrast. Coronal and sagittal reformatted images were also reviewed. FINDINGS: Brain: Extra-axial spaces: No abnormal extra-axial fluid collections. Ventricular system: Dilatation in proportion to cerebral atrophy. Cerebral parenchyma: Remote injury to left caudate nucleus. Cerebral atrophy. No acute intraparenchym al hemorrhage or mass effect. The herrera-white junction is well differentiated. Cerebellum: Unremarkable. Mass effect: No evidence of midline shift. Intracranial vasculature: Atherosclerotic calcifications of the intracranial vessels. Soft tissues: Normal. Calvarium/osseous structures: No depressed skull fracture. Paranasal sinuses and mastoid air cells: Clear. Visualized orbits: Bilateral aphakia Cervical spine: Fracture: None. Osseous structures: Multilevel degenerative disc disease changes with endplate spurring and disc oste ophyte complex's. Severe degeneration changes of the left shoulder was [id number] articulation. Vertebral alignment: Within normal limits. Spinal canal/Neural Foramina: Disc osteophyte complexes at C3-C4 through C6-C7 with at least mild spi nal canal stenosis. Facet joint uncovertebral joint arthropathy scattered throughout the cervical spi ne with varying degrees of neural foraminal stenosis. Neck soft tissues: Prevertebral soft tissues are within normal limits. Other: The airway is patent. Atherosclerosis of the arterial vasculature. IMPRESSION: 1. No acute intracranial process. 2. Nonspecific white matter changes, likely secondary to chronic small vessel ischemic disease. 3. No evidence of cervical spine fracture. 4. Moderate to severe multilevel degenerative disc disease. 5. End-stage left shoulder osteoarthrosis.
--- NOTE | 2022-09-23 16:59 | CT ---
EXAMINATION TYPE: CT lumbar spine wo con CT DLP: 1638 mGycm, Automated exposure control for dose reduction was used. DATE OF EXAM: 09/23/2022 4:32 PM COMPARISON: 09/04/2022 CLINICAL INDICATION:Male, 82 years old with history of M54.50;, pain after fall on 09/21. TECHNIQUE: Multiple axial images were obtained from the midportion of T11 through the sacroiliac hiram nts. Soft tissue and bone windows in coronal and sagittal planes were obtained and reviewed. Contrast used:none. Oral contrast used: none. FINDINGS: There is straightening of the alignment with multilevel osteophyte formation, vacuum disc phenomenon and Schmorl's nodes. Acute fracture through the L2 vertebral body which does not extend into the post erior elements. There is severe spinal canal stenosis at L2-L3 secondary to degeneration and osteophy eva. Additional moderate to severe L3-L4 spinal canal stenosis is also present secondary to degenerat ion changes. Multilevel neural foraminal stenosis is present. Severe multilevel disc degeneration changes are seen throughout the spine with grade 2 anterolisthesi s of L5 on S1 with bilateral spondylolysis. There is severe bilateral neural foraminal stenosis. Anselmo tional multilevel neural foraminal stenosis throughout the spine. There is severe atherosclerosis of the arterial vasculature. Large stool burden throughout the colon. Few scattered colonic diverticula. IMPRESSION: 1. Acute fracture through the superior L2 vertebral body, this does not definitely extend into the p osterior elements. There is severe spinal canal stenosis at L2-L3 secondary to degenerative disc dise ase changes. 2. Grade 2 anterolisthesis of L5 on S1 with severe bilateral neural foraminal stenosis and spondylol ysis.
== END | disposition home or self-care (01) ==
LOC: RADCTMAIN 15:45
PROVIDERS: ATTEND Family Medicine
DX: S32.020A Wedge compression fracture of second lumbar vertebra, initial encounter for closed fracture (principal); S09.90XA Unspecified injury of head, initial encounter; M19.012 Primary osteoarthritis, left shoulder; R90.82 White matter disease, unspecified; M51.36 Other intervertebral disc degeneration, lumbar region; M43.16 Spondylolisthesis, lumbar region; M99.73 Connective tissue and disc stenosis of intervertebral foramina of lumbar region; M47.816 Spondylosis without myelopathy or radiculopathy, lumbar region
CPT/HCPCS: 70450; 72125; 72131

== ENCOUNTER → 2022-11-30 | Outpatient (CLI) | payer MEDICARE ==
--- NOTE | 2022-11-30 17:08 | CT ---
EXAMINATION TYPE: CT abdomen pelvis wo con CT DLP: 524.6 mGycm, Automated exposure control for dose reduction was used. DATE OF EXAM: 11/30/2022 4:37 PM COMPARISON: CT abdomen pelvis most recent from 09/04/2022, 09/23/2022 CLINICAL INDICATION:Male, 82 years old with history of R19.00 INTRA-ABD AND PELVIC SWELLING; left ean ed abdominal pain, swelling TECHNIQUE: Axial CT of the abdomen and pelvis. Sagittal and coronal reformats were created on a [employer] workstation. Contrast used: (none if empty) Oral contrast used: with Oral Contrast (none if empty) FINDINGS: LOWER CHEST: Atherosclerosis of the coronary arteries is severe. Oral contrast is seen within the dis juno esophagus layering. ABDOMEN LIVER: Unremarkable GALLBLADDER AND BILE DUCTS: Unremarkable. PANCREAS: Unremarkable. SPLEEN: Unremarkable. ADRENAL GLANDS: Unremarkable. KIDNEYS AND URETERS: No evidence of hydronephrosis or renal calculus. The ureters are unremarkable. PELVIS BLADDER: Unremarkable REPRODUCTIVE: Prostate is enlarged in size measuring 6.0 cm in transverse dimension. ABDOMEN & PELVIS STOMACH AND BOWEL: No evidence of bowel obstruction. Appendix is normal. Symmetric PERITONEUM/RETROPERITONEUM: No evidence of pneumoperitoneum or free fluid. VASCULATURE: Severe atherosclerotic calcifications are present throughout the abdominal aorta and its branches. No evidence of aortic aneurysm. MUSCULOSKELETAL: There is compression deformity to the L2 vertebral body. Additionally grade 2 antonio listhesis of L5 on S1. There is bilateral spondylolysis. Additional multilevel osteophyte formation a nd facet arthropathy. There is at least severe bilateral neural foraminal stenosis at L5-S1. LYMPH NODES: No gross evidence for lymphadenopathy. SOFT TISSUE/ABDOMINAL WALL: Unremarkable IMPRESSION: 1. No definitive evidence for acute left-sided abdominal process. 2. Compression fracture of L2 vertebral body with curvilinear lucency in the superior aspect of the vertebral body most. Findings have progressed comparison from 09/23/2022. 3. Layering oral contrast in the esophagus correlate for reflux versus esophageal dysmotility. 4. Prostatomegaly, correlate with serum PSA. 5. Grade 2 anterolisthesis of L5 on S1 with severe bilateral neural foraminal stenosis. There is spo ndylolysis.
== END | disposition home or self-care (01) ==
LOC: RADCTMAIN 14:37
PROVIDERS: ATTEND Family Medicine
DX: M48.56XA Collapsed vertebra, not elsewhere classified, lumbar region, initial encounter for fracture (principal); N40.0 Benign prostatic hyperplasia without lower urinary tract symptoms; M43.17 Spondylolisthesis, lumbosacral region; M99.74 Connective tissue and disc stenosis of intervertebral foramina of sacral region; R19.00 Intra-abdominal and pelvic swelling, mass and lump, unspecified site
CPT/HCPCS: 74176

== ENCOUNTER 2023-01-18 21:27 | Emergency (ER) | payer MEDICARE ==
--- NOTE | 2023-01-18 21:40 | ED ---
Wound/Laceration HPI - General Source: patient, RN notes reviewed Mode of arrival: ambulatory Limitations: no limitations <Sil Nye - Last Filed: 01/18/23 21:39> <Chandni Conn - Last Filed: 01/18/23 23:34> - General Chief Complaint: Wound/Laceration Stated Complaint: Post-Op Bleeding, Right Ear Time Seen by Provider: 01/18/23 21:39 - History of Present Illness Initial Comments: Patient is an 82-year-old male who presents to the emergency department for postoperative bleeding. Patient had basal cell carcinoma removed from right ear today by Dr. Martell. Patient has had trouble controlling the bleeding he is on Eliquis (Sil Nye) 82-year-old male presents emergency department chief complaint of right pinna bleeding. He states that he had dermatologic surgery today to remove basal cell carcinoma. He states that he got home and is not having any bleeding at that time but then noticed it started to bleed again. He states that he has not been able to stop the bleeding on his own. He is on Eliquis. He states he is going to follow up tomorrow with Dr. Martell. (Chandni Conn) - Related Data Home Medications Medication Instructions Recorded Confirmed Levothyroxine Sodium [Levoxyl] 100 mcg PO DAILY 02/15/17 09/04/22 Atorvastatin [Lipitor] 40 mg PO HS 12/02/18 09/04/22 Amiodarone [Cordarone] 100 mg PO DAILY 02/05/20 09/04/22 atenoloL [Tenormin] 50 mg PO DAILY 02/05/20 09/04/22 Aspirin [Adult Low Dose Aspirin EC] 81 mg PO DAILY 05/09/20 09/04/22 Acetaminophen Tab [Tylenol Tab] 500 mg PO Q6H PRN 09/04/22 09/04/22 Cephalexin [Keflex] 500 mg PO TID 09/04/22 09/04/22 Empagliflozin [Jardiance] 10 mg PO DAILY 09/04/22 09/04/22 Furosemide [Lasix] 20 mg PO DAILY 09/04/22 09/04/22 Losartan Potassium [Cozaar] 100 mg PO DAILY 09/04/22 09/04/22 metFORMIN HCL [Glucophage] 1,000 mg PO BID 09/04/22 09/04/22 Previous Rx's Medication Instructions Recorded Apixaban [Eliquis] 5 mg PO BID tab 12/04/18 amLODIPine [Norvasc] 10 mg PO DAILY tab 12/04/18 polyethylene glycoL 3350 [Miralax] 17 gm PO DAILY #30 packet 09/04/22 Allergies Allergy/AdvReac Type Severity Reaction Status Date / Time ibuprofen AdvReac PASSED OUT Verified 01/18/23 21:34 Review of Systems ROS Other: All systems not noted in ROS Statement are negative. <Sil Nye - Last Filed: 01/18/23 21:39> ROS Other: All systems not noted in ROS Statement are negative. <Chandni Conn - Last Filed: 01/18/23 23:34> ROS Statement: Those systems with pertinent positive or pertinent negative responses have been documented in the HPI. Past Medical History Past Medical History: Atrial Fibrillation, Atrial Flutter, Coronary Artery Disease (CAD), Diabetes Mellitus, GERD/Reflux, Hyperlipidemia, Hypertension, Osteoarthritis (OA), Pneumonia, Thyroid Disorder Additional Past Medical History / Comment(s): chronic L shoulder pain, TIA- no residual effects. pt denies [place], constipation, Last Myocardial Infarction Date:: unknown silent History of Any Multi-Drug Resistant Organisms: None Reported Past Surgical History: Heart Catheterization, Heart Catheterization With Stent, Hernia Repair, Joint Replacement, Orthopedic Surgery Additional Past Surgical History / Comment(s): 4 cardiac stents, R total reverse shoulder, L knee partial replacement, bilateral inguinal hernia repairs, colonoscopy, bilateral cataract removals/lens implants. carpal tunnel rt hand Past Anesthesia/Blood Transfusion Reactions: No Reported Reaction Date of Last Stent Placement:: 12/27/18 Past Psychological History: No Psychological Hx Reported Smoking Status: Former smoker Past Alcohol Use History: None Reported Past Drug Use History: None Reported - Past Family History Mother Family Medical History: No Reported History Brother(s) Family Medical History: CVA/TIA, Myocardial Infarction ([place]) Additional Family Medical History / Comment(s): Pt had a brother who from a [place] and CVA at the age of 55yr. Father Family Medical History: Hypertension <Sil Nye - Last Filed: 01/18/23 21:39> General Exam Limitations: no limitations <Sil Nye - Last Filed: 01/18/23 21:39> Limitations: no limitations General appearance: alert, in no apparent distress <Chandni Conn - Last Filed: 01/18/23 23:34> - General Exam Comments Initial Comments: Visual Physical Exam Vital signs reviewed General: Well-appearing, nontoxic, no acute distress. Head: Normocephalic, atraumatic Eyes: PERRLA, EOMI ENT: Airway patent Chest: Nonlabored breathing Skin: No visual rash, normal skin tone Neuro: Alert and oriented 3 Musculoskeletal: No gross abnormalities (Sil Nye) Course Vital Signs 01/18/23 21:28 Temperature 98.3 F Pulse Rate 93 Respiratory 20 Rate Blood Pressure 166/80 O2 Sat by Pulse 98 Oximetry Medical Decision Making <Sil Nye - Last Filed: 01/18/23 21:39> <Chandni Conn - Last Filed: 01/18/23 23:34> - Medical Decision Making I performed the QuickNote portion of this chart - Sil Nye PA-C (Sil Nye) Was pt. sent in by a medical professional or institution ([facility] [place], LEAD SECURITY OFFICER, urgent care, hospital, or long-term...) When possible be specific @ -[No] Did you speak to anyone other than the patient for history (EMS, parent, family, police, friend...)? What history was obtained from this source @ -[No] Did you review nursing and triage notes (agree or disagree)? Why? @ -[I reviewed and agree with nursing and triage notes] Were old charts reviewed (outside hosp., previous admission, EMS record, old EKG, old radiological studies, urgent care reports/EKG's, long-term records)? Report findings @ -[No old charts were reviewed] Differential Diagnosis (chest pain, altered mental status, abdominal pain women, abdominal pain men, vaginal bleeding, weakness, fever, dyspnea, syncope, headache, dizziness, GI bleed, back pain, seizure, CVA, palpatations, mental health, musculoskeletal)? @ -[not applicable] EKG interpreted by me (3pts min.). @ -[As above] X-rays interpreted by me (1pt min.). @ -[None done] CT interpreted by me (1pt min.). @ -[None done] U/S interpreted by me (1pt. min.). @ -[None done] What testing was considered but not performed or refused? (CT, X-rays, U/S, labs)? Why? @ -[None] What meds were considered but not given or refused? Why? @ -[None] Did you discuss the management of the patient with other professionals (professionals i.e. , PA, LEAD SECURITY OFFICER, lab, RT, psych nurse, certified social workers in health care, hospice consultant, teacher, electoral officer, leather case finisher)? Give summary @ -[No] Was smoking cessation discussed for >3mins.? @ -[No] Was critical care preformed (if so, how long)? @ -[No] Were there social determinants of health that impacted care today? How? (Homelessness, low income, unemployed, alcoholism, drug addiction, transportation, low edu. Level, literacy, decrease access to med. care, [place] [facility], rehab)? @ -[No] Was there de-escalation of care discussed even if they declined (Discuss DNR or withdrawal of care, Hospice)? DNR status @ -[No] What co-morbidities impacted this encounter? (DM, HTN, Smoking, COPD, CAD, Cancer, CVA, ARF, Chemo, Hep., AIDS, mental health diagnosis, sleep apnea, morbid obesity)? @ -[None] Was patient admitted / discharged? Hospital course, mention meds given and route, prescriptions, significant lab abnormalities, going to OR and other pertinent info. @ -[hospital course] Undiagnosed new problem with uncertain prognosis? @ -[No] Drug Therapy requiring intensive monitoring for toxicity (Heparin, Nitro, Insulin, Cardizem)? @ -[No] Were any procedures done? @ -[No] Diagnosis/symptom? @ -[default] Acute, or Chronic, or Acute on Chronic? @ -[default] Uncomplicated (without systemic symptoms) or Complicated (systemic symptoms)? @ -[default] Side effects of treatment? @ -[No] Exacerbation, Progression, or Severe Exacerbation? @ -[No] Poses a threat to life or bodily function? How? (Chest pain, [place], [place], pneumonia, PE, COPD, DKA, ARF, appy, cholecystitis, CVA, Diverticulitis, Homicidal, Suicidal, threat to staff... and all critical care pts) @ -[No] (Chandni Conn) Disposition <Sil Nye - Last Filed: 01/18/23 21:39> Is patient prescribed a controlled substance at d/c from ED?: No <Chandni Conn - Last Filed: 01/18/23 23:34> Clinical Impression: Post-op bleeding Disposition: HOME SELF-CARE Condition: Stable Additional Instructions: Follow up with dermatology tomorrow as scheduled. Return to the emergency department for new or worsening symptoms. Referrals: Christiano Lane MD [Primary Care Provider] - 1-2 days
[2023-01-18 21:48] VITALS: TEMP 98.3
[2023-01-18] MEDS ORDERED: TRANEXAMIC ACID 1,000 MG/10 ML VIAL MISCELLANE ONE (22:37)
[2023-01-19 00:13] VITALS: BP 147/71; PULSE 72; RESP 16
[2023-01-19] MEDS ORDERED: GELATIN SPONGE,ABSORB (LARGE) 1 EACH SPONGE TOPICAL STA ×2 (00:19→00:39)
== END 2023-01-19 01:00 | disposition home or self-care (01) ==
LOC: EC 21:27
DX: H95.42 Postprocedural hemorrhage of ear and mastoid process following other procedure (principal); I25.10 Atherosclerotic heart disease of native coronary artery without angina pectoris; I10 Essential (primary) hypertension; E78.5 Hyperlipidemia, unspecified; E11.36 Type 2 diabetes mellitus with diabetic cataract; I48.91 Unspecified atrial fibrillation; I25.2 Old myocardial infarction; M19.90 Unspecified osteoarthritis, unspecified site; E07.9 Disorder of thyroid, unspecified; Z86.73 Personal history of transient ischemic attack (TIA), and cerebral infarction without residual deficits; Z87.891 Personal history of nicotine dependence; Z88.6 Allergy status to analgesic agent; Z79.890 Hormone replacement therapy; Z79.01 Long term (current) use of anticoagulants; Z79.84 Long term (current) use of oral hypoglycemic drugs; Z79.899 Other long term (current) drug therapy
CPT/HCPCS: 99283

== ENCOUNTER → 2023-03-02 | Outpatient (CLI) | payer MEDICARE ==
[2023-03-02 14:42] LABS: Basophils % (A) 0 %; Eosinophils % (A) 0 %; HCT 43.2 % (39.0-53.0); HGB 14.3 gm/dL (13.0-17.5); Lymphocytes # (A) 1.3 k/uL (1.0-4.8); Lymphocytes % (A) 13 %; MCH 32.5 pg (25.0-35.0); MCHC 33.2 g/dL (31.0-37.0); MCV 97.9 fL (80.0-100.0); Mean Platelet Volume 7.5; Monocytes # (A) 0.8 k/uL (0-1.0); Monocytes % (A) 8 %; Neutrophils # (A) 7.8 k/uL (1.3-7.7); Neutrophils % (A) 75 %; Platelet Count 250 k/uL (150-450); RBC 4.41 m/uL (4.30-5.90); RDW 12.4 % (11.5-15.5); WBC 10.3 k/uL (3.8-10.6)
[2023-03-02 15:00] LABS: Creatinine,Urine Random 42.9 mg/dL; Protein/Creatinine Ratio,Urine 0.629
[2023-03-02 15:02] LABS: ALT 24 U/L (4-49); AST 21 U/L (17-59); African American GFR (CKD) >90 (>60 ml/min/1.73 sqM); Albumin 4.1 g/dL (3.5-5.0); Albumin/Globulin Ratio 1.4; Alkaline Phosphatase 66 U/L (38-126); Anion Gap 11 mmol/L; Blood Urea Nitrogen 21 mg/dL (9-20); Calcium 9.4 mg/dL (8.4-10.2); Carbon Dioxide 25 mmol/L (22-30); Chloride 94 mmol/L (98-107); Globulin 2.9 g/dL; Glucose 128 mg/dL (74-99); Magnesium 2.1 mg/dL (1.6-2.3); Non-African American GFR(CKD) 85 (>60 ml/min/1.73 sqM); Phosphorus 4.4 mg/dL (2.5-4.5); Potassium 5.2 mmol/L (3.5-5.1); Sodium 130 mmol/L (137-145); Total Bilirubin 0.6 mg/dL (0.2-1.3); Uric Acid 3.2 mg/dL (3.5-8.5)
[2023-03-02 20:17] LABS: Appearance,Urine Clear (Clear); Bilirubin,Urine Negative (Negative); Blood,Urine Negative (Negative); Color,Urine Yellow (Yellow); Ketones,Urine Negative (Negative); Nitrite,Urine Negative (Negative); PH, Urine 6.5; Specific Gravity,Urine 1.024 (1.001-1.030)
[2023-03-02 21:11] LABS: Urine Creatinine 41.2 mg/dL (39.0-259.0)
[2023-03-03 02:27] LABS: % Iron Saturation 27.76 (15.00-50.00); Iron 93 UG/DL (65-175); Total Iron Binding Capacity 335 UG/DL (228-460)
== END | disposition home or self-care (01) ==
LOC: LABWHC1 13:05
PROVIDERS: ATTEND Internal Medicine Nephrology
DX: N39.0 Urinary tract infection, site not specified (principal); N18.1 Chronic kidney disease, stage 1; N25.81 Secondary hyperparathyroidism of renal origin; M10.9 Gout, unspecified; D63.1 Anemia in chronic kidney disease; R80.9 Proteinuria, unspecified
CPT/HCPCS: 36415; 80053; 81003; 82043; 82570; 82728; 83540; 83550; 83735; 83970; 84100; 84156; 84550; 85025

== ENCOUNTER → 2023-05-18 | Outpatient (CLI) | payer MEDICARE ==
[2023-05-18 16:06] LABS: ALT 24 U/L (10-49); AST 16 U/L (14-35); Albumin 4.1 g/dL (3.8-4.9); Albumin/Globulin Ratio 1.71 Ratio (1.60-3.17); Alkaline Phosphatase 71 U/L (41-126); BUN/Creat Ratio 15.25 Ratio (12.00-20.00); Blood Urea Nitrogen 12.2 mg/dL (9.0-27.0); Calcium 8.9 mg/dL (8.7-10.3); Carbon Dioxide 25.8 mmol/L (21.6-31.8); Chloride 97 mmol/L (96-109); Chol/HDL Ratio 2.55 Ratio; Globulin 2.4 g/dL (1.6-3.3); Glucose 123 mg/dL (70-110); LDL Cholesterol,Calculated 21.5 mg/dL (0.0-131.0); Potassium 4.1 mmol/L (3.5-5.5); Sodium 133 mmol/L (135-145); Total Bilirubin 0.5 mg/dL (0.3-1.2); Total Protein 6.5 g/dL (6.2-8.2)
== END | disposition home or self-care (01) ==
LOC: LABWHC1 10:41
PROVIDERS: ATTEND Internal Medicine Interventional Cardiology
DX: I48.0 Paroxysmal atrial fibrillation (principal); E78.2 Mixed hyperlipidemia
CPT/HCPCS: 36415; 80053; 80061; 84443

== ENCOUNTER 2023-10-22 13:42 | Emergency (ER) | payer MEDICARE ==
--- NOTE | 2023-10-22 14:19 | ED ---
Upper Extremity HPI - General Chief Complaint: Extremity Injury, Upper Stated Complaint: L Shoulder Pain Time Seen by Provider: 10/22/23 14:16 Source: patient, RN notes reviewed Mode of arrival: wheelchair Limitations: no limitations - History of Present Illness Initial Comments: This is an 83-year-old male who presents to the emergency department for left shoulder pain. States that he went to lift his off of the floor yesterday and felt a pop in his left shoulder. Since then he has had increasing pain and is unable to move his arm. MD Complaint: Injury to:: left, shoulder - Related Data Home Medications Medication Instructions Recorded Confirmed Levothyroxine Sodium [Levoxyl] 100 mcg PO DAILY 02/15/17 09/04/22 Atorvastatin [Lipitor] 40 mg PO HS 12/02/18 09/04/22 Amiodarone [Cordarone] 100 mg PO DAILY 02/05/20 09/04/22 atenoloL [Tenormin] 50 mg PO DAILY 02/05/20 09/04/22 Aspirin [Adult Low Dose Aspirin EC] 81 mg PO DAILY 05/09/20 09/04/22 Acetaminophen Tab [Tylenol Tab] 500 mg PO Q6H PRN 09/04/22 09/04/22 Cephalexin [Keflex] 500 mg PO TID 09/04/22 09/04/22 Empagliflozin [Jardiance] 10 mg PO DAILY 09/04/22 09/04/22 Furosemide [Lasix] 20 mg PO DAILY 09/04/22 09/04/22 Losartan Potassium [Cozaar] 100 mg PO DAILY 09/04/22 09/04/22 metFORMIN HCL [Glucophage] 1,000 mg PO BID 09/04/22 09/04/22 Previous Rx's Medication Instructions Recorded Apixaban [Eliquis] 5 mg PO BID tab 12/04/18 amLODIPine [Norvasc] 10 mg PO DAILY tab 12/04/18 polyethylene glycoL 3350 [Miralax] 17 gm PO DAILY #30 packet 09/04/22 HYDROcodone/APAP 5-325MG [[place] 1 tab PO Q6HR PRN 3 Days #12 tab 10/22/23 5-325] Allergies Allergy/AdvReac Type Severity Reaction Status Date / Time ibuprofen AdvReac PASSED OUT Verified 01/18/23 21:34 Review of Systems ROS Statement: Those systems with pertinent positive or pertinent negative responses have been documented in the HPI. ROS Other: All systems not noted in ROS Statement are negative. Past Medical History Past Medical History: Atrial Fibrillation, Atrial Flutter, Coronary Artery Disease (CAD), Diabetes Mellitus, GERD/Reflux, Hyperlipidemia, Hypertension, Osteoarthritis (OA), Pneumonia, Thyroid Disorder Additional Past Medical History / Comment(s): chronic L shoulder pain, TIA- no residual effects. pt denies [place], constipation, Last Myocardial Infarction Date:: unknown silent History of Any Multi-Drug Resistant Organisms: None Reported Past Surgical History: Heart Catheterization, Heart Catheterization With Stent, Hernia Repair, Joint Replacement, Orthopedic Surgery Additional Past Surgical History / Comment(s): 4 cardiac stents, R total reverse shoulder, L knee partial replacement, bilateral inguinal hernia repairs, colonoscopy, bilateral cataract removals/lens implants. carpal tunnel rt hand Past Anesthesia/Blood Transfusion Reactions: No Reported Reaction Date of Last Stent Placement:: 12/27/18 Past Psychological History: No Psychological Hx Reported Smoking Status: Former smoker Past Alcohol Use History: None Reported Past Drug Use History: None Reported - Past Family History Mother Family Medical History: No Reported History Brother(s) Family Medical History: CVA/TIA, Myocardial Infarction ([place]) Additional Family Medical History / Comment(s): Pt had a brother who from a [place] and CVA at the age of 55yr. Father Family Medical History: Hypertension General Exam Limitations: no limitations General appearance: alert, in no apparent distress Head exam: Present: atraumatic, normocephalic, normal inspection Respiratory exam: Present: normal lung sounds bilaterally. Absent: respiratory distress, wheezes, rales, rhonchi, stridor Cardiovascular Exam: Present: regular rate, normal rhythm, normal heart sounds. Absent: systolic murmur, diastolic murmur, rubs, gallop, clicks Extremities exam: Present: other (Tenderness to palpation over the left shoulder. Range of motion limited by pain. 2+ radial pulses.) Neurological exam: Present: alert, oriented X3, CN II-XII intact Psychiatric exam: Present: normal affect, normal mood Skin exam: Present: warm, dry, intact, normal color. Absent: rash Course Vital Signs 10/22/23 10/22/23 10/22/23 14:01 16:40 18:06 Temperature 97.9 F 97.8 F 98 F Pulse Rate 70 67 70 Respiratory 20 18 18 Rate Blood Pressure 138/86 148/73 141/79 O2 Sat by Pulse 99 98 98 Oximetry Medical Decision Making - Medical Decision Making This is an 83 year old male who presents to the emergency department for a left shoulder injury. Was pt. sent in by a medical professional or institution? @ -No Did you speak to anyone other than the patient for history? @ -No Did you review nursing and triage notes? @ -Yes, and I agree, it is accurate with regards to the patient's symptoms. Were old charts reviewed? @ -No Differential Diagnosis? @ -Differential Musculoskeletal: Muscular strain, contusion, ligament sprain, fracture, arthritis, septic arthritis, bursitis, cellulitis, muscle spasm, nerve compression, DVT, arterial occlusion, herpes zoster, electrolyte abnormality, tumor.... This is not meant to be in all inclusive list EKG interpreted by me (3pts min.)? @ -Not obtained X-rays interpreted by me (1pt min.)? @ -X-ray of the left shoulder obtained. My interpretation identifies a humerus fracture. CT interpreted by me (1pt min.)? @ -Not obtained U/S interpreted by me (1pt. min.)? @ -Not obtained What testing was considered but not performed? (CT, X-rays, U/S, labs)? Why? @ -None What meds were considered but not given? Why? @ -None Did you discuss the management of the patient with other professionals? @ -Yes, Valerie with [facility], who advised an arm sling and follow- up in the office. Did you reconcile home meds? @ -No Was smoking cessation discussed for >3mins.? @ -No Was critical care preformed (if so, how long)? @ -No Were there social determinants of health that impacted care today? How? (Homelessness, low income, unemployed, alcoholism, drug addiction, transp ortation, low edu. Level, literacy, decrease access to med. care, [facility], rehab)? @ -No Was there de-escalation of care discussed even if they declined? (Discuss DNR or withdrawal of care, Hospice)? @ -No What co-morbidities impacted this encounter? (DM, HTN, Smoking, COPD, CAD, Cancer, CVA, Hep., AIDS, mental health diagnosis, sleep apnea, morbid obesity)? @ -Osteoarthritis Was patient admitted / discharged? @ -Discharged. X-ray of the left shoulder obtained demonstrating a fracture of the left proximal humerus with lateral angulation and shortening. Case discussed with orthopedics who advised an arm sling and follow-up in their office. Pain was managed in the emergency department. Case management made the patient an appointment with orthopedics for 10/26. Arm sling was applied. Rx for [place] provided with dosing instructions reviewed. Advised taking this sparingly when his pain is the most severe and otherwise taking Tylenol. He was given a dose of this in the emergency department which he tolerated without difficulty. Case discussed with ED attending Dr. Crain. Return precautions reviewed in depth, the patient is instructed to return to the emergency department with any new, worsening, or concerning symptoms. Patient verbalized understanding. Undiagnosed new problem with uncertain prognosis? @ -None Drug Therapy requiring intensive monitoring for toxicity (Heparin, Nitro, Insulin, Cardizem)? @ -None Were any procedures done? @ -None Diagnosis/symptom? @ -Left proximal humerus fracture Acute, or Chronic, or Acute on Chronic? @ -Acute Uncomplicated (without systemic symptoms) or Complicated (systemic symptoms)? @ -Uncomplicated Side effects of treatment? @ -None Exacerbation, Progression, or Severe Exacerbation] @ -Not applicable Poses a threat to life or bodily function? @ -This will limit his use of the left upper extremity for the meantime. - Radiology Data Radiology results: report reviewed, image reviewed Disposition Clinical Impression: Fracture of humerus Disposition: HOME SELF-CARE Instructions (If sedation given, give patient instructions): Proximal Humerus Fracture (ED) Additional Instructions: Return to the emergency department with any new, worsening, or concerning symptoms. Take Tylenol as needed for pain relief and take the [place] when your pain is the most severe. Be aware that this may make you drowsy. You have a follow-up appointment with Dr. Nieto, orthopedics, on 10/26 at 10:45 AM. Prescriptions: HYDROcodone/APAP 5-325MG [[place] 5-325] 1 tab PO Q6HR PRN 3 Days #12 tab PRN Reason: Pain Is patient prescribed a controlled substance at d/c from ED?: Yes When asked, does pt state using other controlled substances?: No If prescribed controlled substance>3 days was MAPS reviewed?: Prescribed <3 Days Referrals: Christiano Lane MD [Primary Care Provider] - 1-2 days Orlin Nieto MD [STAFF PHYSICIAN] - 10/27/23 10:45 am (Please be prepaired to complete paperwork) Forms: [facility], [facility], Personal Comic Artist Time of Disposition: 17:18
--- NOTE | 2023-10-22 14:46 | XR ---
EXAMINATION TYPE: XR shoulder complete LT DATE OF EXAM: 10/22/2023 2:35 PM CLINICAL INDICATION:Male, 83 years old with history of deformity to left shoulder; COMPARISON: None TECHNIQUE: XR shoulder complete LT; examined in AP, internally rotated and scapular Y projections. FINDINGS/IMPRESSION: Acute fracture of the left proximal humerus with lateral angulation and shortening up to 16 mm. 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
[2023-10-22] MEDS ORDERED: HYDROcodone/APAP 5-325MG 1 EACH TAB PO STA (15:42)
[2023-10-22] MEDS: MORPHINE SULFATE 2 MG/ML SYRINGE IM STA (16:41)
[2023-10-22 16:45] VITALS: RESP 18
[2023-10-22] MEDS: HYDROcodone/APAP 5-325MG 1 EACH TAB PO STA (17:52)
[2023-10-22 18:07] VITALS: BP 141/79; PULSE 70; TEMP 98
== END 2023-10-22 18:07 | disposition home or self-care (01) ==
LOC: EC 13:42
DX: S42.202A Unspecified fracture of upper end of left humerus, initial encounter for closed fracture (principal); M19.90 Unspecified osteoarthritis, unspecified site; Z88.6 Allergy status to analgesic agent; X50.9XXA Other and unspecified overexertion or strenuous movements or postures, initial encounter
CPT/HCPCS: 73030; 99283; 96372; J2270

== ENCOUNTER → 2023-11-16 | Outpatient (CLI) | payer MEDICARE ==
[2023-11-16 19:33] LABS: ALT 18 U/L (10-49); AST 18 U/L (14-35); Albumin 4.2 g/dL (3.8-4.9); Albumin/Globulin Ratio 1.56 Ratio (1.60-3.17); Alkaline Phosphatase 139 U/L (41-126); BUN/Creat Ratio 17.57 Ratio (12.00-20.00); Blood Urea Nitrogen 12.3 mg/dL (9.0-27.0); Calcium 8.9 mg/dL (8.7-10.3); Carbon Dioxide 27.2 mmol/L (21.6-31.8); Chloride 98 mmol/L (96-109); Chol/HDL Ratio 2.37 Ratio; Globulin 2.7 g/dL (1.6-3.3); Glucose 129 mg/dL (70-110); LDL Cholesterol,Calculated 31.2 mg/dL (0.0-131.0); Potassium 4.3 mmol/L (3.5-5.5); Sodium 138 mmol/L (135-145); T4, Free (Free Thyroxine) 1.82 ng/dL (0.80-1.80); Total Bilirubin 0.4 mg/dL (0.3-1.2); Total Protein 6.9 g/dL (6.2-8.2)
== END | disposition home or self-care (01) ==
LOC: LABWHC1 11:04
PROVIDERS: ATTEND Internal Medicine Interventional Cardiology
DX: I48.0 Paroxysmal atrial fibrillation (principal); I10 Essential (primary) hypertension; E78.2 Mixed hyperlipidemia
CPT/HCPCS: 36415; 80053; 80061; 84439; 84443

== ENCOUNTER 2024-01-17 15:26 | Emergency (ER) | payer MEDICARE ==
[2024-01-17 15:57] VITALS: RESP 18
--- NOTE | 2024-01-17 16:02 | ED ---
General Adult HPI - General Chief complaint: Abdominal Pain Stated complaint: constipation Time Seen by Provider: 01/17/24 15:45 Source: patient, RN notes reviewed Mode of arrival: wheelchair Limitations: no limitations - History of Present Illness Initial comments: This is an 83-year-old male presenting with for constipation x 8 days. Patient states he has been straining but is only been able to defecate small, hard pellets. Patient states he is now having some bowel incontinence with small amounts of loose stool. Patient states he has been taking Tylenol 3 for the past several months with his last dose today. Patient endorses use of MiraLAX and prune juice with no relief. Patient denies fever, chills, abdominal pain, nausea, vomiting. MD Complaint: Constipation Onset/Timin -: days(s) - Related Data Home Medications Medication Instructions Recorded Confirmed Levothyroxine Sodium [Levoxyl] 100 mcg PO DAILY 02/15/17 09/04/22 Atorvastatin [Lipitor] 40 mg PO HS 12/02/18 09/04/22 Amiodarone [Cordarone] 100 mg PO DAILY 02/05/20 09/04/22 atenoloL [Tenormin] 50 mg PO DAILY 02/05/20 09/04/22 Aspirin [Adult Low Dose Aspirin EC] 81 mg PO DAILY 05/09/20 09/04/22 Acetaminophen Tab [Tylenol Tab] 500 mg PO Q6H PRN 09/04/22 09/04/22 Cephalexin [Keflex] 500 mg PO TID 09/04/22 09/04/22 Empagliflozin [Jardiance] 10 mg PO DAILY 09/04/22 09/04/22 Furosemide [Lasix] 20 mg PO DAILY 09/04/22 09/04/22 Losartan Potassium [Cozaar] 100 mg PO DAILY 09/04/22 09/04/22 metFORMIN HCL [Glucophage] 1,000 mg PO BID 09/04/22 09/04/22 Previous Rx's Medication Instructions Recorded Apixaban [Eliquis] 5 mg PO BID tab 12/04/18 amLODIPine [Norvasc] 10 mg PO DAILY tab 12/04/18 polyethylene glycoL 3350 [Miralax] 17 gm PO DAILY #30 packet 09/04/22 oxyCODONE-APAP 5-325MG [Percocet 1 tab PO Q6HR PRN 3 Days #12 tab 10/23/23 5-325 mg] Allergies Allergy/AdvReac Type Severity Reaction Status Date / Time ibuprofen AdvReac PASSED OUT Verified 01/17/24 15:55 Review of Systems ROS Statement: Those systems with pertinent positive or pertinent negative responses have been documented in the HPI. ROS Other: All systems not noted in ROS Statement are negative. Past Medical History Past Medical History: Atrial Fibrillation, Atrial Flutter, Coronary Artery Disease (CAD), Diabetes Mellitus, GERD/Reflux, Hyperlipidemia, Hypertension, Osteoarthritis (OA), Pneumonia, Thyroid Disorder Additional Past Medical History / Comment(s): chronic L shoulder pain, TIA- no residual effects. pt denies DE, constipation, Last Myocardial Infarction Date:: unknown silent History of Any Multi-Drug Resistant Organisms: None Reported Past Surgical History: Heart Catheterization, Heart Catheterization With Stent, Hernia Repair, Joint Replacement, Orthopedic Surgery Additional Past Surgical History / Comment(s): 4 cardiac stents, R total reverse shoulder, L knee partial replacement, bilateral inguinal hernia repairs, colonoscopy, bilateral cataract removals/lens implants. carpal tunnel rt hand Past Anesthesia/Blood Transfusion Reactions: No Reported Reaction Date of Last Stent Placement:: 12/27/18 Past Psychological History: No Psychological Hx Reported Smoking Status: Former smoker Past Alcohol Use History: None Reported Past Drug Use History: None Reported - Past Family History Mother Family Medical History: No Reported History Brother(s) Family Medical History: CVA/TIA, Myocardial Infarction (DE) Additional Family Medical History / Comment(s): Pt had a brother who from a DE and CVA at the age of 55yr. Father Family Medical History: Hypertension General Exam - General Exam Comments Initial Comments: Visual Physical Exam Vital signs reviewed General: Well-appearing, nontoxic, no acute distress. Head: Normocephalic, atraumatic Eyes: PERRLA, EOMI ENT: Airway patent Chest: Nonlabored breathing Skin: No visual rash, normal skin tone Neuro: Alert and oriented 3 Musculoskeletal: No gross abnormalities Limitations: no limitations General appearance: alert, in no apparent distress Head exam: Present: atraumatic, normocephalic, normal inspection Eye exam: Present: normal appearance, PERRL, EOMI. Absent: scleral icterus, conjunctival injection, periorbital swelling ENT exam: Present: normal exam, mucous membranes moist Neck exam: Present: normal inspection. Absent: tenderness, meningismus, lymphadenopathy Respiratory exam: Present: normal lung sounds bilaterally. Absent: respiratory distress, wheezes, rales, rhonchi, stridor Cardiovascular Exam: Present: regular rate, normal rhythm, normal heart sounds. Absent: systolic murmur, diastolic murmur, rubs, gallop, clicks GI/Abdominal exam: Present: soft, distended, normal bowel sounds. Absent: tenderness, guarding, rebound, rigid Rectal exam: Present: normal rectal tone, heme (-) stool, fecal impaction, other (Large amount of hard stool noted in rectal vault. Some stool incontinence noted in sweatpants) Extremities exam: Present: normal inspection, full ROM, normal capillary refill. Absent: tenderness, pedal edema, joint swelling, calf tenderness Back exam: Present: normal inspection Neurological exam: Present: alert, oriented X3, CN II-XII intact Psychiatric exam: Present: normal affect, normal mood Skin exam: Present: warm, dry, intact, normal color. Absent: rash Course Vital Signs 01/17/24 01/17/24 15:55 19:13 Temperature 97.8 F 98.0 F Pulse Rate 79 78 Respiratory 18 18 Rate Blood Pressure 154/72 136/78 O2 Sat by Pulse 99 97 Oximetry Medical Decision Making - Medical Decision Making I completed the quick note portion of this chart signed JACINTA Anand Was pt. sent in by a medical professional or institution ([facility] [place], RAIL EQUIPMENT OPERATOR, urgent care, hospital, or senior care...) When possible be specific @ -No Did you speak to anyone other than the patient for history (EMS, parent, family, police, friend...)? What history was obtained from this source @ -No Did you review nursing and triage notes (agree or disagree)? Why? @ -I reviewed and agree with nursing and triage notes Were old charts reviewed (outside hosp., previous admission, EMS record, old EKG, old radiological studies, urgent care reports/EKG's, senior care records)? Report findings @ -No old charts were reviewed Differential Diagnosis (chest pain, altered mental status, abdominal pain women, abdominal pain men, vaginal bleeding, weakness, fever, dyspnea, syncope, headache, dizziness, GI bleed, back pain, seizure, CVA, palpatations, mental health, musculoskeletal)? @ -Constipation, fecal impaction, intestinal perforation, diverticulitis, opioid associated constipation, intestinal neoplasm, internal hemorrhoids, external hemorrhoids EKG interpreted by me (3pts min.). @ -Not done X-rays interpreted by me (1pt min.). @ -KUB shows large stool burden without air-fluid levels or other indications of impaction. CT interpreted by me (1pt min.). @ -None done U/S interpreted by me (1pt. min.). @ -None done What testing was considered but not performed or refused? (CT, X-rays, U/S, labs)? Why? @ -None What meds were considered but not given or refused? Why? @ -None Did you discuss the management of the patient with other professionals (professionals i.e. , PA, RAIL EQUIPMENT OPERATOR, lab, RT, psych nurse, manager social media, loan documents closer, teacher, prison officer, sample case porter)? Give summary @ -No Was smoking cessation discussed for >3mins.? @ -No Was critical care preformed (if so, how long)? @ -No Were there social determinants of health that impacted care today? How? (Homelessness, low income, unemployed, alcoholism, drug addiction, transportation, low edu. Level, literacy, decrease access to med. care, [place] [facility], rehab)? @ -No Was there de-escalation of care discussed even if they declined (Discuss DNR or withdrawal of care, Hospice)? DNR status @ -No What co-morbidities impacted this encounter? (DM, HTN, Smoking, COPD, CAD, Cancer, CVA, ARF, Chemo, Hep., AIDS, mental health diagnosis, sleep apnea, morbid obesity)? @ -None Was patient admitted / discharged? Hospital course, mention meds given and route, prescriptions, significant lab abnormalities, going to OR and other pertinent info. @ -Discharge. KUB shows large fecal content with no air-fluid level or signs of infection. Occult stool was negative. Enema performed prior to patient discharge. Advised continue MiraLAX and prune juice daily as needed Undiagnosed new problem with uncertain prognosis? @ -No Drug Therapy requiring intensive monitoring for toxicity (Heparin, Nitro, Insulin, Cardizem)? @ -No Were any procedures done? @ -No Diagnosis/symptom? @ -Opioid associated constipation Acute, or Chronic, or Acute on Chronic? @ -Acute on chronic Uncomplicated (without systemic symptoms) or Complicated (systemic symptoms)? @ -Uncomplicated Side effects of treatment? @ -No Exacerbation, Progression, or Severe Exacerbation? @ -No Poses a threat to life or bodily function? How? (Chest pain, USA, DE, pneumonia, PE, COPD, DKA, ARF, appy, cholecystitis, CVA, Diverticulitis, Homicidal, Suicidal, threat to staff... and all critical care pts) @ -No - Lab Data Lab Results 01/17/24 Range/Units 16:58 Stool Occult Blood Negative (Negative) Disposition Clinical Impression: Constipation Disposition: HOME SELF-CARE Condition: Good Instructions (If sedation given, give patient instructions): Constipation (ED) Additional Instructions: Advised to continue MiraLAX and prune juice intake daily as needed Is patient prescribed a controlled substance at d/c from ED?: No Referrals: Christiano Lane MD [Primary Care Provider] - 1-2 days Time of Disposition: 18:33
--- NOTE | 2024-01-17 17:26 | XR ---
EXAMINATION TYPE: XR KUB DATE OF EXAM: 01/17/2024 5:13 PM COMPARISON: None CLINICAL INDICATION: Male, 83 years old with history of Constipation; [facility] TECHNIQUE: One radiographic view of the abdomen was obtained. FINDINGS: There is a large stool burden, otherwise, the bowel gas pattern is nonspecific without dila lou loops of small or large bowel. . Fecal material and gas are demonstrated throughout the colon and rectum. There is no evidence for organomegaly or pneumoperitoneum. The osseous structures are intact. No ab normal calcifications are present. Severe atherosclerosis of the arterial vasculature. IMPRESSION: Large stool burden in the colon and rectum, Nonspecific bowel gas pattern without radiographic eviden ce for acute process. [facility], , 01/17/2024 5:24 PM
[2024-01-17 19:15] VITALS: BP 136/78; PULSE 78; TEMP 98
== END 2024-01-17 19:24 | disposition home or self-care (01) ==
LOC: EC 15:26
CPT/HCPCS: 36415; 74018; 82272; 99284

== ENCOUNTER → 2024-05-23 | Outpatient (CLI) | payer MEDICARE ==
[2024-05-23 16:38] LABS: ALT 23 U/L (10-49); AST 24 U/L (14-35); Albumin 4.5 g/dL (3.8-4.9); Albumin/Globulin Ratio 1.41 Ratio (1.60-3.17); Alkaline Phosphatase 102 U/L (41-126); BUN/Creat Ratio 17.44 Ratio (12.00-20.00); Blood Urea Nitrogen 15.7 mg/dL (9.0-27.0); Calcium 9.4 mg/dL (8.7-10.3); Carbon Dioxide 27.6 mmol/L (21.6-31.8); Chloride 98 mmol/L (96-109); Chol/HDL Ratio 2.61 Ratio; Globulin 3.2 g/dL (1.6-3.3); Glucose 125 mg/dL (70-110); LDL Cholesterol,Calculated 25.9 mg/dL (0.0-131.0); Potassium 4.1 mmol/L (3.5-5.5); Sodium 139 mmol/L (135-145); Total Bilirubin 0.5 mg/dL (0.3-1.2); Total Protein 7.7 g/dL (6.2-8.2)
== END | disposition home or self-care (01) ==
LOC: LABWHC1 10:27
PROVIDERS: ATTEND Internal Medicine Interventional Cardiology
DX: E78.2 Mixed hyperlipidemia (principal)
CPT/HCPCS: 36415; 80053; 80061

== ENCOUNTER → 2024-07-24 | Outpatient (CLI) | payer MEDICARE ==
--- NOTE | 2024-07-25 08:02 | US ---
EXAMINATION TYPE: US kidneys/renal and bladder DATE OF EXAM: 07/24/2024 COMPARISON: CLINICAL INDICATION: Male, 84 years old with history of N18.1 CHRONIC KIDNEY DISEASE, STAGE 1; Abnorm al labs. TECHNIQUE: Grayscale imaging of the bilateral kidneys and urinary bladder: FINDINGS: EXAM MEASUREMENTS: Right Kidney: 10.6 x 4.8 x 5.2 cm Left Kidney: 12.0 x 5.1 x 5.3 cm No hydronephrosis on either side. Right Kidney: Lateral portion limited due to bowel gas. Left Kidney: Lateral lower cystic lesion = 0.6 x 0.6 x 0.6 cm. Medial echogenic focus = 0.6 cm Bladder: bladder wall irregularities seen, Bilateral Jets seen IMPRESSION: 1. No hydronephrosis. 2. Lower pole cyst on the left measuring 6 mm. Additional centrally located 6 mm echogenic focus in t he left kidney, possible stone passing into the collecting system. 3. Bladder wall irregularity suspected to be on the basis of prominent trabeculations. Correlate for any symptoms of chronic bladder outlet obstruction. Correlate with urine cytology, urinalysis, and di rect visualization as clinically indicated. [facility], Workstation: [email or web address], 07/25/2024 8:00 AM
== END | disposition home or self-care (01) ==
LOC: RADUSWWP 14:26
PROVIDERS: ATTEND Internal Medicine Nephrology
DX: N18.1 Chronic kidney disease, stage 1 (principal); N28.1 Cyst of kidney, acquired
CPT/HCPCS: 76770